=== PATIENT | male | born 1955 | race American Indian/Alaskan Native ===

== ENCOUNTER 2022-01-02 20:03 | Inpatient (IN) | payer MEDICAID, MEDICARE ==
[~2022-01-02 20:03] MED LIST: AMIODARONE 150 MG/3 ML INJ IV ONE; ATROPINE 0.1% (1 MG/10 ML) CARDIAC SYRINGE ONE; CALCIUM CHLORIDE 1,000 MG/10 ML SYRINGE IV ONE; DEXTROSE 50% IN WATER (25GM) 50 ML SYRINGE IV ONE; EPINEPHrine 1 MG/10 ML SYRINGE ONE; LIDOCAINE PF 100 MG/5 ML (CARDIAC SYRINGE) IV ONE; SODIUM BICARB 8.4% 50 MEQ/50 ML SYRINGE IV ONE
[2022-01-02] MEDS ORDERED: NALOXONE 2 MG/2 ML INJ IV ONE (20:07)
[2022-01-02] MEDS ORDERED: NORepinephrine/NS 8 MG-250 ML 8 MG/250 ML INFUS..BTL IV ONE (20:08)
[2022-01-02] MEDS: NORepinephrine/NS 8 MG-250 ML 8 MG/250 ML INFUS..BTL IV SCH (20:10)
[2022-01-02 20:18] LABS: ABG Base Excess -10.6 mmol/L (-2.0-3.0); ABG Methemoglobin 0.5 % (0.0-1.5); ABG Oxygen Saturation 93.2 % (95.0-99.0); ABG PO2 90.3 mm Hg (80.0-90.0)
[2022-01-02 20:21] LABS: ABG PH 7.049 pH Units (7.350-7.450)
[2022-01-02] MEDS ORDERED: SODIUM CHLORIDE 0.9% 1000 ML 1,000 ML IV ONE (20:30)
[2022-01-02 20:43] LABS: Hematocrit 40.8 % (35.5-45.6); Hemoglobin 13.3 gm/dl (11.8-15.2); Mean Corpuscular HGB Conc 33 % (32-34); Mean Corpuscular Volume 92 fl (84-94); Platelet Count 246 K/mm3 (140-440); Red Blood Count 4.42 M/mm3 (3.65-5.03); Red Cell Distribution Width 16.3 % (13.2-15.2)
--- NOTE | 2022-01-02 20:46 | XRay Report ---
CHEST 1 VIEW 01/02/2022 8:14 PM INDICATION / CLINICAL INFORMATION: Altered Mental Status. COMPARISON: None available. FINDINGS: SUPPORT DEVICES: Endotracheal tube has been placed with the tip 8.9 cm above the wood. Esophagogast roseline tube has been placed with the tip just below the diaphragm into the stomach with the sidehole abo ve the diaphragm. HEART / MEDIASTINUM: Heart is normal size. Thoracic aorta appears ectatic and tortuous. LUNGS / PLEURA: Mild bilateral perihilar opacities. Small right apical pneumothorax measuring 2.2 cm at the apex. ADDITIONAL FINDINGS: No significant additional findings. IMPRESSION: 1. Small right apical pneumothorax of about 20%. 2. Endotracheal tube is slightly high measuring 8.9 cm above the wood. 3. Esophagogastric tube should be advanced about 5 cm into the stomach. Signer Name: Radha Langford MD Signed: 01/02/2022 8:42 PM Workstation Name: [id number]
[2022-01-02 20:53] LABS: INR 1.08 (0.87-1.13)
[2022-01-02] MEDS ORDERED: SODIUM BICARBONATE 50 MEQ in SODIUM CHLORIDE 0.9% 1000 ML 1,000 ML IV SCH (21:00)
[2022-01-02 21:01] LABS: Alanine Aminotransferase 74 units/L (7-56); Albumin 3.7 g/dL (3.9-5); BUN/Creatinine Ratio 10; Blood Urea Nitrogen 14 mg/dL (9-20); Calcium 8.6 mg/dL (8.4-10.2); Hemolysis Index 62
--- NOTE | 2022-01-02 21:02 | Procedure Note ---
Date of procedure: 01/02/22 Pre-op diagnosis: Cardiac arrest Post-op diagnosis: same Procedure: Right femoral vein triple-lumen catheter placed under ultrasound guidance The patient was prepped and draped in the usual sterile fashion. A timeout was taken with the patient's nurse at bedside to verify the correct patient, the correct procedure, and the correct operative site. Local anesthesia was obtained with 1% lidocaine. The Seldinger technique was utilized to access the right femoral vein under ultrasound guidance. A seeker needle was utilized under ultrasound guidance and was inserted into the right femoral vein without difficulty. A guidewire was then advanced into the right femoral vein and the seeker needle subsequently removed. A scalpel was used to incise the skin. A dilator was then passed over the guidewire into the right femoral vein and subsequently removed. A preflush triple-lumen catheter was then advanced to the right femoral vein without difficulty. All 3 ports flush and drawl with ease. 3O nylon suture was utilized to suture the triple-lumen catheter in place. A Biopatch was placed at the insertion site. A sterile dressing was utilized to cover the triple-lumen catheter. Estimated blood loss minimal. Complications none. Specimens none. Anesthesia: local Surgeon: KALLIE WHITTEN Estimated blood loss: minimal Pathology: none Condition: critical Disposition: ICU
[2022-01-02 21:04] LABS: C-Reactive Protein 1.1 mg/dL (0.00-1.30)
[2022-01-02 21:09] LABS: Bacteria,Urine 2+ /HPF (Negative); Bilirubin,Urine NEG (Negative); Blood,Urine SM (Negative); Color,Urine Yellow (Yellow); Mucus,Urine FEW /HPF; Protein,Urine <15 mg/dL mg/dL (Negative); Urobilinogen,Urine < 2.0 mg/dL (<2.0)
[2022-01-02] MEDS ORDERED: PIPERACILLIN/TAZOBACTAM 3.375 3.375 GM/50 ML BAG IV ONE (21:10)
[2022-01-02 21:15] LABS: Chol/HDL Ratio 4.66 %; HDL Cholesterol 42 mg/dL (40-59); LDL Cholesterol,Direct 136 mg/dL (50-130)
[2022-01-02 21:15] LABS: Amphetamine Screen,Urine Negative; Benzodiazepines Screen,Urine Negative; Cannabinoid Screen,Urine Negative; Cocaine Screen,Urine Negative; Methadone Screen,Urine Negative; Opiate Screen,Urine Negative
[2022-01-02 21:52] LABS: ABG Base Excess -6.4 mmol/L (-2.0-3.0); ABG HCO3 19.4 mmol/L (20.0-26.0); ABG Methemoglobin 0.6 % (0.0-1.5); ABG Oxygen Saturation 95.8 % (95.0-99.0); ABG PCO2 39.7 mm Hg; ABG PH 7.306 pH Units (7.350-7.450); ABG PO2 68.8 mm Hg (80.0-90.0)
--- NOTE | 2022-01-02 22:26 | XRay Report ---
CHEST 1 VIEW 01/02/2022 10:06 PM INDICATION / CLINICAL INFORMATION: Dyspnea. COMPARISON: 8:14 PM FINDINGS: SUPPORT DEVICES: Interval placement of small right pleural tube. Endotracheal tube has been advanced with the tip 7.4 cm above the wood. Esophagogastric tube is again present at the gastroesophageal j unction. HEART / MEDIASTINUM: No significant abnormality. LUNGS / PLEURA: Bilateral pulmonary opacities are unchanged. Slight interval enlargement of right pne umothorax despite placement of pleural tube. ADDITIONAL FINDINGS: No significant additional findings. IMPRESSION: 1. Slight interval increase in size of right pneumothorax despite placement of pleural tube. 2. Endotracheal tube in expected position. 3. Esophagogastric tube at gastroesophageal junction. Tube should be advanced about 5 cm for optimal positioning. Signer Name: Radha Langford MD Signed: 01/02/2022 10:22 PM Workstation Name: [id number]
--- NOTE | 2022-01-02 22:45 | Emergency Department Report ---
ED General Adult HPI - General Stated complaint: CARDIAC ARREST Time Seen by Provider: 01/02/22 20:07 Source: family, EMS Mode of arrival: Stretcher Limitations: Altered Mental Status, Physical Limitation - History of Present Illness Initial comments: pt had witnessed cardiac arrest at home , recently taking gabapentin for pain , but no drugs no htn no diabetes Associated Symptoms: denies: denies other symptoms - Related Data Allergies Allergy/AdvReac Type Severity Reaction Status Date / Time Unable to Assess Allergy Unverified 01/02/22 20:17 ED Review of Systems ROS: Stated complaint: CARDIAC ARREST Other details as noted in HPI Comment: Unobtainable due to pts medical conditions ED Past Medical Hx - Past Medical History Previous Medical History?: Yes - Social History Smoking Status: Unknown if ever smoked Substance Use Type: Other ED Physical Exam - General Limitations: Altered Mental Status, Physical Limitation General appearance: obtunded, other (unresponsive ) - Head Head exam: Present: other (swelling left forhead) - Eye Eye exam: Present: other (mid non reactive ) - ENT ENT exam: Present: normal orophraynx - Respiratory Respiratory exam: Present: normal lung sounds bilaterally - Cardiovascular Cardiovascular Exam: Present: tachycardia, irregular rhythm - Expanded Neurological Exam Expanded Best Eye Response (Marycarmen): (1) no response Best Motor Response (Marycarmen): (1) no motor response Best Verbal Response (Racine): (1) no verbal response Marycarmen Total: 3 ED Course Vital Signs 01/02/22 01/02/22 01/02/22 20:08 20:10 20:12 Temperature Pulse Rate 130 H 130 H Respiratory 30 H Rate Blood Pressure 159/113 Blood Pressure 58/34 [Right] O2 Sat by Pulse 88 100 96 Oximetry 01/02/22 01/02/22 01/02/22 20:15 20:16 20:20 Temperature 97.6 F Pulse Rate 130 H 120 H Respiratory 22 20 Rate Blood Pressure 120/82 Blood Pressure 83/57 110/81 [Right] O2 Sat by Pulse 92 92 100 Oximetry 01/02/22 01/02/22 01/02/22 20:31 20:45 21:01 Temperature Pulse Rate 126 H 130 H 123 H Respiratory 28 H 9 L 9 L Rate Blood Pressure 159/113 193/128 168/125 Blood Pressure [Right] O2 Sat by Pulse 95 99 99 Oximetry 01/02/22 01/02/22 01/02/22 21:15 21:31 21:45 Temperature Pulse Rate 120 H 111 H 105 H Respiratory 19 10 L 14 Rate Blood Pressure 157/112 130/102 110/84 Blood Pressure [Right] O2 Sat by Pulse 99 100 99 Oximetry 01/02/22 01/02/22 01/02/22 22:01 22:15 22:31 Temperature Pulse Rate 98 H 94 H 103 H Respiratory 18 22 24 Rate Blood Pressure 118/92 114/83 107/85 Blood Pressure [Right] O2 Sat by Pulse 93 93 91 Oximetry 01/02/22 01/02/22 01/02/22 22:45 23:00 23:02 Temperature Pulse Rate 127 H 109 H 113 H Respiratory 15 25 H Rate Blood Pressure 128/98 96/72 94/71 Blood Pressure [Right] O2 Sat by Pulse 90 92 98 Oximetry 01/02/22 01/02/22 01/02/22 23:15 23:23 23:30 Temperature Pulse Rate 115 H 108 H 115 H Respiratory 26 H 26 H 30 H Rate Blood Pressure 93/73 106/85 104/71 Blood Pressure 103/78 [Right] O2 Sat by Pulse 98 98 98 Oximetry 01/03/22 01/03/22 00:02 00:11 Temperature Pulse Rate 121 H 122 H Respiratory 22 25 H Rate Blood Pressure 98/73 Blood Pressure [Right] O2 Sat by Pulse 86 Oximetry - Chest Tube Chest Tube Location: mid axillary line Chest Tube Procedure: betadine prep [place]azar[place] of Air [place]: Yes Number of Attempts: 1 Tube Sutured to Skin: Yes Post Procedure CXR?: Yes - Intubation Sedative: none Assist Device Used: fiberoptic device ET Tube Size: 7.5 Tube Secured Depth (cm): 25 Tube Secured Location: lips Tube Placement Confirmation: visualized tube passing t, equal breath sounds bilat, no breath sounds over epi, confirmation by capnometr Patient Tolerated Procedure: well, no complications Intubation Complications: none ED Medical Decision Making - Lab Data Result diagrams: 01/04/22 04:45 01/04/22 Unknown - EKG Data -: EKG Interpreted by Me - EKG Data Interpretation: nonspecific ST-T wave laron, LVH, other (afib ) - Radiology Data Radiology results: report reviewed, image reviewed - Medical Decision Making intubated on arrival as below , no spont pulse or breathing , epi and bicarb given X2 with ROSC , central line placed , started on levo to maintain MAP above 60 , x ray shwoed apical pneumo most likely secondary to CPR, chest tube inserted, pt had 3 episodes of vifb with DC , amiodarone bollus and drip given Critical Care Time: Yes Critical care time in (mins) excluding proc time.: 120 Critical care attestation.: If time is entered above; I have spent that time in minutes in the direct care of this critically ill patient, excluding procedure time. Critical Care Time: 120 ED Disposition Clinical Impression: Cardiac arrest, Hypotension, Unresponsive, Elevated troponin, UTI (urinary tract infection), Pneumothorax Disposition: ADMITTED INPATIENT Is pt being admited?: Yes Does the pt Need Aspirin: Yes Condition: Undetermined
[2022-01-02] MEDS ORDERED: ASPIRIN 325 MG TAB PO ONE (22:46)
[2022-01-02] MEDS ORDERED: MAGNESIUM HYDROXIDE (MOM) ORAL LIQD UDC PO PRN (22:53)
[2022-01-02] MEDS ORDERED: MORPHINE 2 MG/1 ML INJ IV PRN (22:53)
[2022-01-02] MEDS ORDERED: ACETAMINOPHEN 650 MG RECT SUPP PR PRN (22:53)
[2022-01-02] MEDS ORDERED: ONDANSETRON 4 MG/2 ML INJ IV PRN (22:53)
[2022-01-02] MEDS ORDERED: MORPHINE 4 MG/1 ML INJ IV PRN (22:53)
--- NOTE | 2022-01-02 23:03 | History and Physical Report ---
History of Present Illness Date of examination: 01/02/22 Date of admission: 01/02/2022 Chief complaint: Unresponsiveness History of present illness: 66-year-old -[place] male with no significant past medical history brought into the emergency room via EMS in cardiopulmonary arrest. Patient was said to be at home watching TV when he suddenly went into cardiac arrest. EMS was immediately called and patient was transported to the emergency room. CPR was conducted en route to the hospital. Upon arrival in the emergency room patient was subsequently intubated. He had a round of epinephrine and sodium bicarb with return of spontaneous circulation. During the course of his resuscitation patient was said to have gone into V. fib which required being given IV amiodarone and subsequently amiodarone drip. EKG had shown some possible ischemic changes however upon review by the construction analyst patient was deemed not to have a STEMI. Work-up in the emergency room, lab reveals leukocytosis of 14.7, lactic acid of 10.0, troponin of 0.200, urinalysis was significant for UTI, toxicology screen was unremarkable. Chest x-ray however reveals a small right apical pneumothorax of about 20% CT of the head was worrisome for bilateral cerebral edema and/or diffuse anoxic injury. Patient has had the chest tube placed in the emergency room. He has also been started on IV fluid , pressor and empiric IV antibiotics. Artillery Officer and construction analyst on-call has been notified by the ER physician. Most of this history was gotten from the ER staff as patient's family was not available. Past History Past Medical History: No medical history Past Surgical History: No surgical history Social history: no significant social history Family history: no significant family history Medications and Allergies Allergies Allergy/AdvReac Type Severity Reaction Status Date / Time Unable to Assess Allergy Unverified 01/02/22 20:17 Active Meds: Active Medications Acetaminophen (Acetaminophen 650 Mg Rect Supp) 650 mg WA Q6H PRN PRN Reason: Pain MILD(1-3)/Fever >100.5/CANTRELL Heparin Sodium (Porcine) (Heparin 5,000 Unit/1 Ml Vial) 5,000 unit SUB-Q Q8HR SALMA NORepinephrine/NS 8 MG-250 ML (Norepinephrine/Ns 8 Mg-250 Ml (Double Conc)) 8 mg in 250 mls @ 3.75 mls/hr IV TITRATE SALMA; Protocol Last Titration: 01/02/22 21:10 Dose: 0 mcg/min, 0 mls/hr Sodium Bicarbonate 50 meq/ (Sodium Chloride) 1,050 mls @ 100 mls/hr IV DIRECT SALMA Last Admin: 01/02/22 21:25 Dose: 100 mls/hr Amiodarone HCl 900 mg/ (Dextrose) 500 mls @ 33.333 mls/hr IV DIRECT SALMA; Protocol Sodium Chloride (Nacl 0.9% 1000 Ml) 1,000 mls @ 125 mls/hr IV DIRECT SALMA Magnesium Hydroxide (Magnesium Hydroxide (Mom) Oral Liqd Udc) 30 ml PO Q4H PRN PRN Reason: Constipation Morphine Sulfate (Morphine 2 Mg/1 Ml Inj) 2 mg IV Q4H PRN PRN Reason: Pain, Moderate (4-6) Morphine Sulfate (Morphine 4 Mg/1 Ml Inj) 4 mg IV Q4H PRN PRN Reason: Pain , Severe (7-10) Ondansetron HCl (Ondansetron 4 Mg/2 Ml Inj) 4 mg IV Q8H PRN PRN Reason: Nausea And Vomiting Sodium Chloride (Sodium Chloride 0.9% 10 Ml Flush Syringe) 10 ml IV BID SALMA Sodium Chloride (Sodium Chloride 0.9% 10 Ml Flush Syringe) 10 ml IV PRN PRN PRN Reason: LINE FLUSH Review of Systems ROS unobtainable: due to endotracheal tube Exam - Constitutional Vitals: Temp Pulse Resp BP Pulse Ox 97.6 F 127 H 15 128/98 90 01/02/22 20:20 01/02/22 22:45 01/02/22 22:45 01/02/22 22:45 01/02/22 22:45 General appearance: Present: other (Intubated and Sedated) - EENT Eyes: Present: PERRL, EOM intact. Absent: scleral icterus ENT: hearing intact, clear oral mucosa, dentition normal - Neck Neck: Present: supple, normal ROM - Respiratory Respiratory effort: normal Respiratory: bilateral: CTA - Cardiovascular Rhythm: regular Heart Sounds: Present: S1 & S2. Absent: gallop, systolic murmur, diastolic murmur, rub, click - Extremities Extremities: no ischemia, pulses intact, pulses symmetrical, No edema, normal temperature, normal color, Full ROM Peripheral Pulses: within normal limits - Abdominal General gastrointestinal: Present: soft, non-tender, non-distended, normal bowel sounds. Absent: mass - Musculoskeletal Musculoskeletal: other (Intubated and Sedated) - Psychiatric Psychiatric: cooperative - Neurologic Neurologic: other (Intubated and Sedated) HEART Score - HEART Score Troponin: Troponin T 0.200 ng/mL (0.00-0.029) H* 01/02/22 20:23 Results - Labs CBC & Chem 7: 01/02/22 20:23 01/02/22 20:23 Labs: Abnormal lab results 01/02/22 01/02/22 01/02/22 Range/Units 20:00 20:23 20:23 WBC 14.7 H (4.5-11.0) K/mm3 RDW 16.3 H (13.2-15.2) % PT 15.2 H (12.2-14.9) Sec. ABG pH 7.049 L* (7.350-7.450) pH Units ABG pO2 90.3 H (80.0-90.0) mm Hg ABG HCO3 (20.0-26.0) mmol/L ABG O2 Saturation 93.2 L (95.0-99.0) % ABG Base Excess -10.6 L (-2.0-3.0) mmol/L ABG Hemoglobin 13.1 L (14.0-18.0) gm/dl Oxyhemoglobin 88.4 L (95.0-99.0) % Carbon Dioxide (22-30) mmol/L Creatinine (0.8-1.3) mg/dL Glucose (75-100) mg/dL Lactic Acid (0.7-2.0) mmol/L AST (5-40) units/L ALT (7-56) units/L Ammonia (25-60) umol/L Total Creatine Kinase (55-170) units/L Troponin T (0.00-0.029) ng/mL Total Protein (6.3-8.2) g/dL Albumin (3.9-5) g/dL LDL Cholesterol Direct (50-130) mg/dL Urine WBC (Auto) (0.0-6.0) /HPF Salicylates (2.8-20.0) mg/dL Acetaminophen (10.0-30.0) ug/mL 01/02/22 01/02/22 01/02/22 Range/Units 20:23 20:23 20:23 WBC (4.5-11.0) K/mm3 RDW (13.2-15.2) % PT (12.2-14.9) Sec. ABG pH (7.350-7.450) pH Units ABG pO2 (80.0-90.0) mm Hg ABG HCO3 (20.0-26.0) mmol/L ABG O2 Saturation (95.0-99.0) % ABG Base Excess (-2.0-3.0) mmol/L ABG Hemoglobin (14.0-18.0) gm/dl Oxyhemoglobin (95.0-99.0) % Carbon Dioxide 21 L (22-30) mmol/L Creatinine 1.4 H (0.8-1.3) mg/dL Glucose 260 H (75-100) mg/dL Lactic Acid 10.00 H* (0.7-2.0) mmol/L AST 115 H (5-40) units/L ALT 74 H (7-56) units/L Ammonia (25-60) umol/L Total Creatine Kinase 668 H (55-170) units/L Troponin T 0.200 H* (0.00-0.029) ng/mL Total Protein 5.7 L (6.3-8.2) g/dL Albumin 3.7 L (3.9-5) g/dL LDL Cholesterol Direct 136 H (50-130) mg/dL Urine WBC (Auto) (0.0-6.0) /HPF Salicylates < 0.3 L (2.8-20.0) mg/dL Acetaminophen (10.0-30.0) ug/mL 01/02/22 01/02/22 01/02/22 Range/Units 20:23 20:23 20:52 WBC (4.5-11.0) K/mm3 RDW (13.2-15.2) % PT (12.2-14.9) Sec. ABG pH (7.350-7.450) pH Units ABG pO2 (80.0-90.0) mm Hg ABG HCO3 (20.0-26.0) mmol/L ABG O2 Saturation (95.0-99.0) % ABG Base Excess (-2.0-3.0) mmol/L ABG Hemoglobin (14.0-18.0) gm/dl Oxyhemoglobin (95.0-99.0) % Carbon Dioxide (22-30) mmol/L Creatinine (0.8-1.3) mg/dL Glucose (75-100) mg/dL Lactic Acid (0.7-2.0) mmol/L AST (5-40) units/L ALT (7-56) units/L Ammonia 79.0 H (25-60) umol/L Total Creatine Kinase (55-170) units/L Troponin T (0.00-0.029) ng/mL Total Protein (6.3-8.2) g/dL Albumin (3.9-5) g/dL LDL Cholesterol Direct (50-130) mg/dL Urine WBC (Auto) 40.0 H (0.0-6.0) /HPF Salicylates (2.8-20.0) mg/dL Acetaminophen 5.0 L (10.0-30.0) ug/mL 01/02/22 Range/Units 20:52 WBC (4.5-11.0) K/mm3 RDW (13.2-15.2) % PT (12.2-14.9) Sec. ABG pH 7.306 L (7.350-7.450) pH Units ABG pO2 68.8 L (80.0-90.0) mm Hg ABG HCO3 19.4 L (20.0-26.0) mmol/L ABG O2 Saturation (95.0-99.0) % ABG Base Excess -6.4 L (-2.0-3.0) mmol/L ABG Hemoglobin (14.0-18.0) gm/dl Oxyhemoglobin 92.8 L (95.0-99.0) % Carbon Dioxide (22-30) mmol/L Creatinine (0.8-1.3) mg/dL Glucose (75-100) mg/dL Lactic Acid (0.7-2.0) mmol/L AST (5-40) units/L ALT (7-56) units/L Ammonia (25-60) umol/L Total Creatine Kinase (55-170) units/L Troponin T (0.00-0.029) ng/mL Total Protein (6.3-8.2) g/dL Albumin (3.9-5) g/dL LDL Cholesterol Direct (50-130) mg/dL Urine WBC (Auto) (0.0-6.0) /HPF Salicylates (2.8-20.0) mg/dL Acetaminophen (10.0-30.0) ug/mL Assessment and Plan Assessment: 1. Cardiopulmonary arrest-unclear etiology 2. UTI 3. Cardiac arrhythmia 4. Right apical pneumothorax 5. Elevated troponin Plan: 1. Patient currently intubated and sedated and also placed on pressor. 2. Placed on IV fluid and empiric IV antibiotics. 3. Will monitor closely in the intensive care unit. 4. Patient has had chest tube placed for pneumothorax. 5. We will request chute tender and cardiology follow-up. 6. We will continue to monitor labs closely. DVT prophylaxis: Patient placed on subcutaneous heparin Code Status: Patient is full code. Prognosis: Poor
[2022-01-02] MEDS: AMIODARONE 900 MG in DEXTROSE 5% IN WATER 482 ML IV SCH (23:05)
[2022-01-02] MEDS: SODIUM CHLORIDE 0.9% 1000 ML 1,000 ML IV SCH (23:22)
[2022-01-02 23:40] LABS: Anisocytosis 1+; Band Neutrophils # (Manual) 0.1 K/mm3; Basophils % (Manual) 0 % (0.0-1.8); Eosinophils % (Manual) 0 % (0.0-4.3); Platelet Estimate Consistent w Auto; Total Cells Counted 100
--- NOTE | 2022-01-03 00:04 | Cat Scan Report ---
CT HEAD WITHOUT CONTRAST INDICATION / CLINICAL INFORMATION: Altered Mental Status. TECHNIQUE: CT head was performed without administration of intravenous contrast. All CT scans at this location are performed using CT dose reduction for ALARA by means of automated exposure control. COMPARISON: None available. FINDINGS: CEREBRAL HEMISPHERES: The cerebral hemispheres bilaterally demonstrate diffuse loss of mei-white mat ter distinction as well as sulcal effacement particularly noticeable within the bilateral centrum rosaura iovale. Some preservation of sulcal folding is noted anteriorly within the frontal lobes. Ventricle s ize appears within normal limits without evidence of midline shift. Basal cisterns are patent. HEMORRHAGE: None. CEREBELLUM / BRAINSTEM: Cerebellar architecture is indistinct. ORBITS: No significant abnormality. SOFT TISSUES: No significant abnormality. SKULL: No significant abnormality. PARANASAL SINUSES / MASTOID AIR CELLS: Normal as visualized. ADDITIONAL FINDINGS: None. IMPRESSION: 1. Findings as detailed above are worrisome for bilateral cerebral edema and/or diffuse anoxic injury . Correlation with known history is recommended. Signer Name: José Miguel Lu II, MD Signed: 01/03/2022 12:00 AM Workstation Name: [id number]
[2022-01-03 05:53] LABS: ABG Base Excess -13.3 mmol/L (-2.0-3.0); ABG HCO3 16.8 mmol/L (20.0-26.0); ABG Methemoglobin 0.8 % (0.0-1.5); ABG PCO2 55.8 mm Hg; ABG PO2 44.6 mm Hg (80.0-90.0)
[2022-01-03 05:56] LABS: ABG PH 7.096 pH Units (7.350-7.450)
[2022-01-03] MEDS ORDERED: PIPERACIL/TAZOBACTA 4.5/NS 100 4.5 GM/100 ML VIAL IV SCH (06:00)
[2022-01-03] MEDS ORDERED: HEPARIN 5,000 UNIT/1 ML VIAL SUB-Q SCH ×2 (06:00→14:00)
[2022-01-03] MEDS: SODIUM CHLORIDE 0.9% 1000 ML 1,000 ML IV SCH (06:00)
[2022-01-03 06:13] LABS: Hematocrit 45.5 % (35.5-45.6); Hemoglobin 14.3 gm/dl (11.8-15.2); Mean Corpuscular HGB Conc 32 % (32-34); Mean Corpuscular Volume 94 fl (84-94); Red Blood Count 4.85 M/mm3 (3.65-5.03); Red Cell Distribution Width 16.6 % (13.2-15.2)
[2022-01-03 06:24] LABS: Calcium 8.4 mg/dL (8.4-10.2)
[2022-01-03] MEDS ORDERED: POTASSIUM CHLORIDE 10 MEQ 10 MEQ/100 ML BAG IV ONE (06:30)
[2022-01-03] MEDS ORDERED: EPINEPHrine 1 MG/10 ML SYRINGE ONE (06:30)
[2022-01-03] MEDS ORDERED: SODIUM BICARB 8.4% 50 MEQ/50 ML SYRINGE IV ONE (06:30)
[2022-01-03] MEDS ORDERED: ATROPINE 0.1% (1 MG/10 ML) CARDIAC SYRINGE ONE (06:30)
[2022-01-03] MEDS: VASOPRESSIN 20 UNIT in SODIUM CHLORIDE 0.9% 100 ML IV SCH ×2 (06:45→21:50)
--- NOTE | 2022-01-03 06:54 | Event Note ---
Date: 01/03/22 MAURO RANDHAWA called on 66-year-old -[place] male who was admitted earlier in cardiopulmonary arrest. Resuscitative measures were commenced according to ACLS protocol. Patient received a round of epinephrine and he had spontaneous return of circulation. Review of his current labs shows hypokalemia, metabolic acidosis. Patient to be given K rider and also an amp of sodium bicarb. Patient will be continued on pressors and also continue to monitor labs and vital signs closely. Prognosis still remains poor.
--- NOTE | 2022-01-03 07:43 | Consultation ---
History of Present Illness Consult date: 01/03/22 Requesting physician: SHAVON SHEN Reason for consult: other (Cardiopulmaonry arrest, resp failure on mVS; Shock) History of present illness: PER ED DOCUMENTATION 66-year-old -[place] male with no significant past medical history brought into the emergency room via EMS in cardiopulmonary arrest. Patient was said to be at home watching TV when he suddenly went into cardiac arrest. EMS was immediately called and patient was transported to the emergency room. CPR was conducted en route to the hospital. Upon arrival in the emergency room patient was subsequently intubated. He had a round of epinephrine and sodium bicarb with return of spontaneous circulation. During the course of his resuscitation patient was said to have gone into V. fib which required being given IV amiodarone and subsequently amiodarone drip. EKG had shown some possible ischemic changes however upon review by the car diologist patient was deemed not to have a STEMI. Work-up in the emergency room, lab reveals leukocytosis of 14.7, lactic acid of 10.0, troponin of 0.200, urinalysis was significant for UTI, toxicology screen was unremarkable. Chest x-ray however reveals a small right apical pneumothorax of about 20% CT of the head was worrisome for bilateral cerebral edema and/or diffuse anoxic injury. Patietn seen adn examined. Vitals, albs, medicaitons,chsrt and iamging reviewed. Patient had another arrest at 650am with ROSC. Chest imaging post right pleural drain placement shows a persistent right pneum othorax. patient continues to require vasopressor support- on Norepinephrine, Vasopressin, Nsaline and 1 amp bicarbonate in Nsaline infusion Gil catheter, right femoral CVL He is unresponsive ABG shows mixed respiratory and metabolic acidosis with hypoxemia Past History Past Medical History: No medical history Past Surgical History: No surgical history Social history: no significant social history Family history: no significant family history Medications and Allergies Allergies Allergy/AdvReac Type Severity Reaction Status Date / Time Unable to Assess Allergy Unverified 01/02/22 20:17 Active Meds: Active Medications Acetaminophen (Acetaminophen 650 Mg Rect Supp) 650 mg [place] Q6H PRN PRN Reason: Pain MILD(1-3)/Fever >100.5/CANTRELL Heparin Sodium (Porcine) (Heparin 5,000 Unit/1 Ml Vial) 5,000 unit SUB-Q Q8HR SALMA Last Admin: 01/03/22 06:00 Dose: 5,000 unit NORepinephrine/NS 8 MG-250 ML (Norepinephrine/Ns 8 Mg-250 Ml (Double Conc)) 8 mg in 250 mls @ 3.75 mls/hr IV TITRATE SALMA; Protocol Last Titration: 01/03/22 06:20 Dose: 30 mcg/min, 56.25 mls/hr Sodium Bicarbonate 50 meq/ (Sodium Chloride) 1,050 mls @ 100 mls/hr IV DIRECT SALMA Last Admin: 01/02/22 21:25 Dose: 100 mls/hr Amiodarone HCl 900 mg/ (Dextrose) 500 mls @ 33.333 mls/hr IV DIRECT SALMA; Protocol Last Titration: 01/03/22 05:10 Dose: 0.5 mg/min, 16.667 mls/hr Sodium Chloride (Nacl 0.9% 1000 Ml) 1,000 mls @ 125 mls/hr IV DIRECT SALMA Last Admin: 01/03/22 06:00 Dose: 125 mls/hr Piperacillin Sod/Tazobactam Sod (Zosyn/Ns 4.5gm/100ml) 4.5 gm in 100 mls @ 200 mls/hr IV Q8HR SALMA; Protocol Last Admin: 01/03/22 06:01 Dose: 200 mls/hr Vasopressin 20 unit/ Sodium (Chloride) 101 mls @ 9.09 mls/hr IV TITR SALMA; Protocol Last Admin: 01/03/22 06:45 Dose: 0.03 units/min, 9.09 mls/hr Magnesium Hydroxide (Magnesium Hydroxide (Mom) Oral Liqd Udc) 30 ml PO Q4H PRN PRN Reason: Constipation Morphine Sulfate (Morphine 2 Mg/1 Ml Inj) 2 mg IV Q4H PRN PRN Reason: Pain, Moderate (4-6) Morphine Sulfate (Morphine 4 Mg/1 Ml Inj) 4 mg IV Q4H PRN PRN Reason: Pain , Severe (7-10) Ondansetron HCl (Ondansetron 4 Mg/2 Ml Inj) 4 mg IV Q8H PRN PRN Reason: Nausea And Vomiting Sodium Chloride (Sodium Chloride 0.9% 10 Ml Flush Syringe) 10 ml IV BID SALMA Sodium Chloride (Sodium Chloride 0.9% 10 Ml Flush Syringe) 10 ml IV PRN PRN PRN Reason: LINE FLUSH Review of Systems ROS unobtainable: due to endotracheal tube, due to mental status Physical Examination Vital signs: Vital Signs Pulse Ox 88 01/02/22 20:08 General appearance: comatose, other (orally intuabted to [facility]) Eyes: non-icteric ENT: oropharynx moist Neck: supple, no lymphadenopathy Effort: mildly labored Cardiovascular: regular rate and rhythm (tachycardia), other (S1,S2) Gastrointestinal: normoactive bowel sounds, soft, other (distended) Integumentary: normal Extremities: cool pupils equal and round, unable to assess, other other (Unable to asses psych) Results - Laboratory Findings CBC and BMP: 01/03/22 08:03 01/03/22 04:00 ABG ABG pH 7.096 pH Units (7.350-7.450) L* 01/03/22 05:30 ABG pCO2 55.8 mm Hg 01/03/22 05:30 ABG pO2 44.6 mm Hg (80.0-90.0) L 01/03/22 05:30 ABG O2 Saturation 68.0 % (95.0-99.0) L 01/03/22 05:30 PT/INR, D-dimer PT 15.2 Sec. (12.2-14.9) H 01/02/22 20:23 INR 1.08 (0.87-1.13) 01/02/22 20:23 Abnormal lab findings: Abnormal Labs 01/02/22 01/02/22 01/02/22 20:00 20:23 20:23 WBC 14.7 H RDW 16.3 H Seg Neuts % (Manual) 36.0 L Lymphocytes % (Manual) 61.0 H Lymphocytes # (Manual) 9.0 H PT 15.2 H ABG pH 7.049 L* ABG pO2 90.3 H ABG HCO3 ABG O2 Saturation 93.2 L ABG Base Excess -10.6 L ABG Hemoglobin 13.1 L Oxyhemoglobin 88.4 L Sodium Potassium Carbon Dioxide Creatinine Glucose Lactic Acid AST ALT Ammonia Total Creatine Kinase Troponin T Total Protein Albumin LDL Cholesterol Direct Urine WBC (Auto) Salicylates Acetaminophen 01/02/22 01/02/22 01/02/22 20:23 20:23 20:23 WBC RDW Seg Neuts % (Manual) Lymphocytes % (Manual) Lymphocytes # (Manual) PT ABG pH ABG pO2 ABG HCO3 ABG O2 Saturation ABG Base Excess ABG Hemoglobin Oxyhemoglobin Sodium Potassium Carbon Dioxide 21 L Creatinine 1.4 H Glucose 260 H Lactic Acid 10.00 H* AST 115 H ALT 74 H Ammonia Total Creatine Kinase 668 H Troponin T 0.200 H* Total Protein 5.7 L Albumin 3.7 L LDL Cholesterol Direct 136 H Urine WBC (Auto) Salicylates < 0.3 L Acetaminophen 01/02/22 01/02/22 01/02/22 20:23 20:23 20:52 WBC RDW Seg Neuts % (Manual) Lymphocytes % (Manual) Lymphocytes # (Manual) PT ABG pH ABG pO2 ABG HCO3 ABG O2 Saturation ABG Base Excess ABG Hemoglobin Oxyhemoglobin Sodium Potassium Carbon Dioxide Creatinine Glucose Lactic Acid AST ALT Ammonia 79.0 H Total Creatine Kinase Troponin T Total Protein Albumin LDL Cholesterol Direct Urine WBC (Auto) 40.0 H Salicylates Acetaminophen 5.0 L 01/02/22 01/03/22 01/03/22 20:52 00:50 04:00 WBC 2.1 L RDW 16.6 H Seg Neuts % (Manual) Lymphocytes % (Manual) Lymphocytes # (Manual) PT ABG pH 7.306 L ABG pO2 68.8 L ABG HCO3 19.4 L ABG O2 Saturation ABG Base Excess -6.4 L ABG Hemoglobin Oxyhemoglobin 92.8 L Sodium Potassium Carbon Dioxide Creatinine Glucose Lactic Acid 6.80 H* AST ALT Ammonia Total Creatine Kinase Troponin T Total Protein Albumin LDL Cholesterol Direct Urine WBC (Auto) Salicylates Acetaminophen 01/03/22 01/03/22 01/03/22 04:00 05:30 05:45 WBC RDW Seg Neuts % (Manual) Lymphocytes % (Manual) Lymphocytes # (Manual) PT ABG pH 7.096 L* ABG pO2 44.6 L ABG HCO3 16.8 L ABG O2 Saturation 68.0 L ABG Base Excess -13.3 L ABG Hemoglobin Oxyhemoglobin 66.6 L Sodium 146 H Potassium 3.0 L Carbon Dioxide 17 L Creatinine 2.5 H D Glucose 149 H Lactic Acid 11.10 H* AST ALT Ammonia Total Creatine Kinase Troponin T Total Protein Albumin LDL Cholesterol Direct Urine WBC (Auto) Salicylates Acetaminophen - Diagnostic Findings Chest x-ray: image reviewed (Right pneumothorax) Assessment and Plan S/p cardiopulmonary arrest x2 with ROSC- Vfib and the bradycardia -requiring multiple pressors Acute hypxemic-hypercarbic respiratory failure on MVS Right Pneumothorax Acute renal failure- vasomotor nephropathy/ATN Elevated live enzymes- possibly shock liver Elevated Ammonia Possible anoxic brain injury NSTEMI Hypernatremia -Start Epinephrine, wean off Norepinephrine -Start heparin infusion- history of long travel about 3 weeks ago( drove from [facility] to [place]) -Get lower extremity dopplers, patient is too unstable to transport fro V/Q scan. CTA is not recommended in the setting of SKYLER -Change IVF- stop NSaline infusion -3 amps of bicarbonate in D5 water at 150ml/hour -Get transthoracic echocardiogram -TTM not available- maintain temp of 33-34 -Will not sedate for now, need to monitor neurologic function -Right chest tube placed, with improvement in hypoxemia -Adjust minute ventilation for better gas exchange -Lung protective strategies, PEEP while monitoring airway pressures -CXR, ABG as clinically indicated -Wean vasopressors for MAP>65, Volume resuscitate -Monitoring renal function, hemodynamics and electrolyte profile -Avoid nephrotoxins and renally dose all medications -Replete electrolytes as clinically indicated -Empiric antibiotics- follow cultures and de-escalate based on culture data and clinical response -Accuchecks with glycemic control. target blood glucose 140-180 mg/dL. Avoid hypoglycemia -Place OGT to LIS -VTE prophylaxis- therapeutic heparin -Stress ulcer prophylaxis- start famotidine -Mobility, frequent turning, off loading per facility protocol to prevent pressure ulcers -Cardioprotective measures CONDITION:CRITICAL PROGNOSIS: GUARDED CODE STATUS; FULL CODE Will need to discuss with family re goals of care- his son and daughter are on the way to the hospital The high probability of a clinically significant, sudden or life threatening deterioration of the respiratory, cardiovascular, neurology system required my full and direct attention, intervention and personal management. The aggregate critical care time was [85] minutes. This time is in addition to time spent performing reported procedures but includes the following: [x] Data Review and interpretation [x] Patient assessment and monitoring of vital signs [x] Documentation [x] Medication orders and management
--- NOTE | 2022-01-03 07:43 | Procedure Note ---
Date of procedure: 01/03/22 Pre-op diagnosis: 2 pressor shock, cardiac arrest with ROSC, acut ehypoxemic resp failure Post-op diagnosis: same Procedure: Left femoral johann placement Patient cleaned and draped in sterile fashion Under ultrasound guidance the left femoral artery was cannulated, guidewire placed. Stab wound, and a femoral catheter placed. Good pulsating blood flow, good wave form noted. Sutured in place, sterile dressing paced. Patient tolerated the procedure well. Anesthesia: local Surgeon: RAQUEL DEJESUS Estimated blood loss: minimal Pathology: none Condition: critical Disposition: ICU
[2022-01-03] MEDS ORDERED: HEPARIN 10,000 UNITS/10 ML VIAL IV PRN (07:45)
[2022-01-03] MEDS ORDERED: HEPARIN/ 0.45% NACL DRIP 25,000 UNIT/500 ML BAG IV SCH (08:00)
[2022-01-03] MEDS: EPINEPHrine 1 MG/1 ML 8 MG in SODIUM CHLORIDE 0.9% 250ML 242 ML IV SCH (08:03)
[2022-01-03] MEDS: NORepinephrine/NS 8 MG-250 ML 8 MG/250 ML INFUS..BTL IV SCH (09:19)
[2022-01-03 09:28] LABS: ABG Base Excess -11.7 mmol/L (-2.0-3.0); ABG HCO3 17.5 mmol/L (20.0-26.0); ABG PCO2 52.3 mm Hg; ABG PO2 47.8 mm Hg (80.0-90.0)
[2022-01-03 09:31] LABS: ABG Methemoglobin 0.6 % (0.0-1.5); ABG Oxygen Saturation 79.4 % (95.0-99.0)
[2022-01-03 09:35] LABS: ABG PH 7.154 pH Units (7.350-7.450)
[2022-01-03] MEDS: SODIUM BICARBONATE 150 MEQ in DEXTROSE 5% IN WATER 1,000 ML IV SCH ×2 (09:41→20:05)
--- NOTE | 2022-01-03 09:57 | XRay Report ---
CHEST 1 VIEW 01/03/2022 8:46 AM INDICATION / CLINICAL INFORMATION: resp failure, right pneumothorax. COMPARISON: Yesterday at 2214 hours FINDINGS: SUPPORT DEVICES: Lines and tubes remain in similar position. The nasogastric tube terminates just bey ond the GE junction. Consider advancement by 5-10 cm. HEART / MEDIASTINUM: No significant abnormality. LUNGS / PLEURA: Moderate to large right pneumothorax has increased from 2.0 cm to 3.4 cm in thickness from the right lateral wall. There is increased atelectatic changes in the right lung. There is mild mediastinal shift to the left suggesting a tension component. The left lung remains clear. ADDITIONAL FINDINGS: No significant additional findings. IMPRESSION: 1. Mild interval increase in the right pneumothorax as described. 2. Consider advancement of the nasogastric tube. Signer Name: Vicente Adkins Jr, MD Signed: 01/03/2022 9:53 AM Workstation Name: [id number]
[2022-01-03 10:14] LABS: Basophils % (Manual) 0 % (0.0-1.8); Eosinophils % (Manual) 0 % (0.0-4.3); Myelocytes # (Manual) 0.2 K/mm3; Total Cells Counted 100
[2022-01-03 10:15] LABS: Anisocytosis 1+; Platelet Clumps 2+
[2022-01-03 10:16] LABS: Large Platelets 2+; Platelet Count 255 K/mm3 (140-440); Platelet Estimate Consistent w Auto
--- NOTE | 2022-01-03 10:40 | XRay Report ---
CHEST 1 VIEW 01/03/2022 9:34 AM INDICATION / CLINICAL INFORMATION: s/p chest tube placement; pnemothorax. COMPARISON: 01/03/2022 FINDINGS: SUPPORT DEVICES: Multiple right chest tubes with gas in the right chest wall HEART / MEDIASTINUM: No significant abnormality. LUNGS / PLEURA: Diffuse opacity throughout the right lung. Right chest tube is noted with expansion o f the lungs. No large pneumothorax is seen ADDITIONAL FINDINGS: No significant additional findings. IMPRESSION: 1. Multiple right chest tubes with diffuse opacity in the right lung. No large pneumothorax. Signer Name: Zackary Mendoza MD Signed: 01/03/2022 10:36 AM Workstation Name: [id number]
--- NOTE | 2022-01-03 10:42 | Procedure Note ---
Date of procedure: 01/03/22 Pre-op diagnosis: Acute hypoxemic resp failure, right tension pneumothorax Post-op diagnosis: same Procedure: Right chest tube placement Emergent- consent not obtained. The right chest wall was prepared and draped in sterile fashion The 4th RICS mid axillary line accessed with finder needle, guidewire placed. Dilated and a 20F pleural drain placed. Guide wire removed. Patietn tolerated the procedure well with improvement of SpO2 to 99% and improvement in blood pressure. A purse string suture was placed. Vaseline gauze and dressing placed. Stat CXR ordered- reviewed at the bedside- Chest tube in place, with re-expanded right lung. Chest tube placed to plerual vac , -20cm suction Anesthesia: local Surgeon: RAQUEL DEJESUS Estimated blood loss: none Pathology: none Condition: critical Disposition: ICU
[2022-01-03 10:44] LABS: Hemoglobin 13.7 gm/dl (11.8-15.2)
--- NOTE | 2022-01-03 10:54 | Consultation ---
History of Present Illness Consult date: 01/03/22 Requesting physician: SHAVON SHEN Consult reason: cardiac arrest History of present illness: Patient is 66-year-old male with unknown past medical history who is brought to the ED yesterday via EMS due to cardiopulmonary arrest. History is taken from chart due to patient being intubated at time of interview. Per documentation patient was at home watching TV when he went into cardiac arrest. EMS was no tified and patient was transported to the hospital. In the ED patient was intubated found to be in V. fib. ACLS protocol was initiated with ROSC. Patient was found to have elevated lactic acid, elevated troponin, and pneumothorax. Head CT concerning for cerebral edema and diffuse anoxic brain in jury. Patient is previously known to our practice. Cardiology is consulted for cardiopulmonary arrest. Past History Past Medical History: No medical history Past Surgical History: No surgical history Social history: no significant social history Family history: no significant family history Medications and Allergies Allergies Allergy/AdvReac Type Severity Reaction Status Date / Time Unable to Assess Allergy Unverified 01/02/22 20:17 Active Meds: Active Medications Acetaminophen (Acetaminophen 650 Mg Rect Supp) 650 mg [place] Q6H PRN PRN Reason: Pain MILD(1-3)/Fever >100.5/CANTRELL Famotidine (Famotidine 20 Mg/2 Ml Inj) 10 mg IV BID SALMA Heparin Sodium (Porcine) (Heparin 5,000 Unit/1 Ml Vial) 5,000 unit SUB-Q Q8HR SALMA NORepinephrine/NS 8 MG-250 ML (Norepinephrine/Ns 8 Mg-250 Ml (Double Conc)) 8 mg in 250 mls @ 3.75 mls/hr IV TITRATE SALMA; Protocol Last Titration: 01/03/22 10:45 Dose: 10 mcg/min, 18.75 mls/hr Amiodarone HCl 900 mg/ (Dextrose) 500 mls @ 33.333 mls/hr IV DIRECT SALMA; Protocol Last Titration: 01/03/22 05:10 Dose: 0.5 mg/min, 16.667 mls/hr Vasopressin 20 unit/ Sodium (Chloride) 101 mls @ 9.09 mls/hr IV TITR SALMA; Protocol Last Admin: 01/03/22 06:45 Dose: 0.03 units/min, 9.09 mls/hr Epinephrine 8 mg/ Sodium (Chloride) 250 mls @ 3.75 mls/hr IV TITR SALMA; Protocol Last Admin: 01/03/22 08:03 Dose: 2 mcg/min, 3.75 mls/hr Sodium Bicarbonate 150 meq/ (Dextrose) 1,000 mls @ 150 mls/hr IV DIRECT SALMA Last Admin: 01/03/22 09:41 Dose: 150 mls/hr Piperacillin Sod/Tazobactam Sod (Zosyn/Ns 3.375gm/50ml) 3.375 gm in 50 mls @ 100 mls/hr IV Q8HR SALMA; Protocol Magnesium Hydroxide (Magnesium Hydroxide (Mom) Oral Liqd Udc) 30 ml PO Q4H PRN PRN Reason: Constipation Morphine Sulfate (Morphine 2 Mg/1 Ml Inj) 2 mg IV Q4H PRN PRN Reason: Pain, Moderate (4-6) Morphine Sulfate (Morphine 4 Mg/1 Ml Inj) 4 mg IV Q4H PRN PRN Reason: Pain , Severe (7-10) Ondansetron HCl (Ondansetron 4 Mg/2 Ml Inj) 4 mg IV Q8H PRN PRN Reason: Nausea And Vomiting Sodium Chloride (Sodium Chloride 0.9% 10 Ml Flush Syringe) 10 ml IV BID SALMA Last Admin: 01/03/22 09:28 Dose: 10 ml Sodium Chloride (Sodium Chloride 0.9% 10 Ml Flush Syringe) 10 ml IV PRN PRN PRN Reason: LINE FLUSH Review of Systems ROS unobtainable: due to endotracheal tube, due to mental status Physical Examination Vital Signs Pulse Ox 88 01/02/22 20:08 General appearance: other (Intubated) HEENT: Positive: Normocephaly Cardiac: Positive: Reg Rate and Rhythm Lungs: Positive: Decreased Breath Sounds, Ventilated Respirations Neuro: Positive: Other (Unable to assess) Abdomen: Positive: Soft Skin: Negative: Rash, Suspicious Lesions, Ulceration Extremities: Present: warm. Absent: edema Results 01/03/22 08:03 01/03/22 04:00 Cardiac Enzymes 01/02/22 Range/Units 20:23 AST 115 H (5-40) units/L Coagulation 01/02/22 Range/Units 20:23 PT 15.2 H (12.2-14.9) Sec. INR 1.08 (0.87-1.13) Lipids 01/02/22 Range/Units 20:23 Triglycerides 106 (2-149) mg/dL Cholesterol 196 (50-199) mg/dL HDL Cholesterol 42 (40-59) mg/dL Cholesterol/HDL Ratio 4.66 % CBC 01/02/22 01/03/22 01/03/22 Range/Units 20:23 04:00 08:03 WBC 14.7 H 2.1 L (4.5-11.0) K/mm3 RBC 4.42 4.85 (3.65-5.03) M/mm3 Hgb 13.3 14.3 13.7 (11.8-15.2) gm/dl Hct 40.8 45.5 42.0 (35.5-45.6) % Plt Count 246 255 202 (140-440) K/mm3 Lymph # (Auto) Supervisor [employer] Comprehensive Metabolic Panel 01/02/22 01/03/22 Range/Units 20:23 04:00 Sodium 144 146 H (137-145) mmol/L Potassium 3.7 3.0 L (3.6-5.0) mmol/L Chloride 101.7 106.2 (98-107) mmol/L Carbon Dioxide 21 L 17 L (22-30) mmol/L BUN 14 19 (9-20) mg/dL Creatinine 1.4 H 2.5 H D (0.8-1.3) mg/dL Glucose 260 H 149 H (75-100) mg/dL Calcium 8.6 8.4 (8.4-10.2) mg/dL AST 115 H (5-40) units/L ALT 74 H (7-56) units/L Alkaline Phosphatase 123 (35-129) units/L Total Protein 5.7 L (6.3-8.2) g/dL Albumin 3.7 L (3.9-5) g/dL - Imaging and Cardiology Echo: pending EKG interpretations - Telemetry EKG Rhythm: Sinus Tachycardia - EKG Sinus rhythms and dysrhythmias: sinus tachycardia AV and intraventricular conduction: right bundle branch block Assessment and Plan Patient is 66-year-old male with unknown past medical history who is brought to the ED yesterday via EMS due to cardiopulmonary arrest with unknown downtime. S/p cardiopulmonary arrest-requiring multiple pressors Acute respiratory failure Pneumothorax-pulmonology following Anoxic brain injury?-Neurology following NSTEMI UTI Plan: EKG shows sinus tach with RBBB no acute ischemic changes. Troponins noted to be elevated in setting of cardiopulmonary arrest Patient currently requiring multiple pressors. Wean pressors as tolerated Patient currently absent reflexes Echo pending Overall poor prognosis Patient in conjunction with Dr. Zelaya who agrees with this plan of care 30 minutes of critical care time spent in care and coordination of patient - Patient Problems (1) Cardiac arrest Current Visit: Yes Status: Acute (2) Hypotension Current Visit: Yes Status: Acute (3) Unresponsive Current Visit: Yes Status: Acute (4) Elevated troponin Current Visit: Yes Status: Acute (5) UTI (urinary tract infection) Current Visit: Yes Status: Acute (6) Pneumothorax Current Visit: Yes Status: Acute
--- NOTE | 2022-01-03 10:56 | Event Note ---
Date: 01/03/22 Son( Alfredo) and Daughter visiting at the bedside. I updated them and answered all heir questions. The patient is to be DNAR in the event of cardiac arrest- no chest compressions, no defibrillation. He is to remain full aggressive care for now. Further goals of care discussions will be had when the whole family get here.
[2022-01-03] MEDS: FAMOTIDINE 20 MG/2 ML INJ IV SCH ×2 (11:08→21:29)
[2022-01-03] MEDS: HEPARIN/ 0.45% NACL DRIP 25,000 UNIT/500 ML BAG IV SCH (11:09)
[2022-01-03 12:04] LABS: ABG Base Excess -9.4 mmol/L (-2.0-3.0); ABG HCO3 18.6 mmol/L (20.0-26.0); ABG Methemoglobin 0.6 % (0.0-1.5); ABG Oxygen Saturation 98.9 % (95.0-99.0); ABG PO2 173.7 mm Hg (80.0-90.0)
[2022-01-03 12:15] LABS: ABG PH 7.198 pH Units (7.350-7.450)
[2022-01-03] MEDS ORDERED: PIPERACILLIN/TAZOBACTAM 3.375 3.375 GM/50 ML BAG IV SCH (14:00)
[2022-01-03 14:13] LABS: Partial Thromboplastin Time 39.6 Sec. (24.2-36.6)
[2022-01-03 14:21] LABS: INR 1.76 (0.87-1.13)
[2022-01-03] MEDS ORDERED: VANCOMYCIN/NS 1 GM/250 ML 1 GM/250 ML BAG IV SCH (15:00)
--- NOTE | 2022-01-03 15:08 | Consultation ---
History of Present Illness - Reason for Consult Consult date: 01/03/22 - History of Present Illness 66-year-old man no known past medical history brought in cardiopulmonary arrest. He was at home watching television when the arrest occurred. He is currently intubated and sedated the history is obtained from the chart. Afebrile with low temperatures White count initially 14.7, now 2.1 Imaging personally reviewed CXR: diffuse opacities throughout Past History Past Medical History: No medical history Past Surgical History: No surgical history Social history: no significant social history Family history: no significant family history Medications and Allergies Allergies Allergy/AdvReac Type Severity Reaction Status Date / Time Unable to Assess Allergy Unverified 01/02/22 20:17 Active Meds: Active Medications Acetaminophen (Acetaminophen 650 Mg Rect Supp) 650 mg NM Q6H PRN PRN Reason: Pain MILD(1-3)/Fever >100.5/CANTRELL Famotidine (Famotidine 20 Mg/2 Ml Inj) 10 mg IV BID SALMA Last Admin: 01/03/22 11:08 Dose: 10 mg NORepinephrine/NS 8 MG-250 ML (Norepinephrine/Ns 8 Mg-250 Ml (Double Conc)) 8 mg in 250 mls @ 3.75 mls/hr IV TITRATE SALMA; Protocol Last Titration: 01/03/22 13:11 Dose: 0 mcg/min, 0 mls/hr Amiodarone HCl 900 mg/ (Dextrose) 500 mls @ 33.333 mls/hr IV DIRECT SALMA; P rotocol Last Titration: 01/03/22 05:10 Dose: 0.5 mg/min, 16.667 mls/hr Vasopressin 20 unit/ Sodium (Chloride) 101 mls @ 9.09 mls/hr IV TITR SALMA; Protocol Last Titration: 01/03/22 14:29 Dose: 0 units/min, 0 mls/hr Epinephrine 8 mg/ Sodium (Chloride) 250 mls @ 3.75 mls/hr IV TITR ASLMA; Protocol Last Admin: 01/03/22 08:03 Dose: 2 mcg/min, 3.75 mls/hr Sodium Bicarbonate 150 meq/ (Dextrose) 1,000 mls @ 150 mls/hr IV DIRECT SALMA Last Admin: 01/03/22 09:41 Dose: 150 mls/hr Piperacillin Sod/Tazobactam Sod (Zosyn/Ns 3.375gm/50ml) 3.375 gm in 50 mls @ 100 mls/hr IV Q8HR [facility]; Protocol Heparin Sodium/Sodium Chloride (Heparin/ 0.45% Nacl-25,000 Unit/500 Ml) 25,000 unit in 500 mls @ 20 mls/hr IV TITRATE SALMA; Protocol Last Admin: 01/03/22 11:09 Dose: 1,000 units/hr, 20 mls/hr Vancomycin HCl (Vancomycin/Ns 1 Gm/250 Ml) 1 gm in 250 mls @ 167.007 mls/hr IV ONCE@1500 SALMA Stop: 01/03/22 18:00 Magnesium Hydroxide (Magnesium Hydroxide (Mom) Oral Liqd Udc) 30 ml PO Q4H PRN PRN Reason: Constipation Morphine Sulfate (Morphine 2 Mg/1 Ml Inj) 2 mg IV Q4H PRN PRN Reason: Pain, Moderate (4-6) Morphine Sulfate (Morphine 4 Mg/1 Ml Inj) 4 mg IV Q4H PRN PRN Reason: Pain , Severe (7-10) Ondansetron HCl (Ondansetron 4 Mg/2 Ml Inj) 4 mg IV Q8H PRN PRN Reason: Nausea And Vomiting Sodium Chloride (Sodium Chloride 0.9% 10 Ml Flush Syringe) 10 ml IV BID [facility] Last Admin: 01/03/22 09:28 Dose: 10 ml Sodium Chloride (Sodium Chloride 0.9% 10 Ml Flush Syringe) 10 ml IV PRN PRN PRN Reason: LINE FLUSH Review of Systems ROS unobtainable: due to endotracheal tube, due to mental status Physical Examination - Physical Exam Narrative exam: Physical Exam: Constitutional: Intubates, sedated Head, Ears, Nose: Normocephalic, atraumatic. External ears, nose normal Eyes: Conjunctivae/corneas clear. No icterus. No ptosis. Neck: Supple, no meningeal signs Oral: ETT Cardiovascular: S1, S2 normal. Respiratory: Good air entry, clear to auscultation bilaterally GI: Soft, non-tender; bowel sounds normal. No peritoneal signs. Musculoskeletal: No pedal edema, no cyanosis. Skin: No rash or abscess Hem/Lymphatic: No palpable cervical or supraclavicular nodes. No lymphangitis Psych: Sedated Neurological:Sedated - Constitutional Vitals: Vital Signs Temp Pulse Resp BP Pulse Ox 99 F 99 H 19 115/62 100 01/03/22 13:36 01/03/22 14:25 01/03/22 14:25 01/03/22 14:25 01/03/22 14:25 Temperature -Last 24 Hours Temperature 99 F Temperature 97.5 F Temperature 98.6 F Temperature 96.9 F Temperature 95.5 F Temperature 95.5 F Temperature 97.6 F Results - Labs CBC & Chem 7: 01/03/22 08:03 01/03/22 04:00 Labs: Abnormal lab results 01/02/22 01/02/22 01/02/22 Range/Units 20:00 20:23 20:23 WBC 14.7 H (4.5-11.0) K/mm3 RDW 16.3 H (13.2-15.2) % Seg Neuts % (Manual) 36.0 L (40.0-70.0) % Lymphocytes % (Manual) 61.0 H (13.4-35.0) % Seg Neutrophils # Man (1.8-7.7) K/mm3 Lymphocytes # (Manual) 9.0 H (1.2-5.4) K/mm3 PT 15.2 H (12.2-14.9) Sec. INR (0.87-1.13) APTT (24.2-36.6) Sec. ABG pH 7.049 L* (7.350-7.450) pH Units ABG pO2 90.3 H (80.0-90.0) mm Hg ABG HCO3 (20.0-26.0) mmol/L ABG O2 Saturation 93.2 L (95.0-99.0) % ABG Base Excess -10.6 L (-2.0-3.0) mmol/L ABG Hemoglobin 13.1 L (14.0-18.0) gm/dl Oxyhemoglobin 88.4 L (95.0-99.0) % Sodium (137-145) mmol/L Potassium (3.6-5.0) mmol/L Carbon Dioxide (22-30) mmol/L Creatinine (0.8-1.3) mg/dL Glucose (75-100) mg/dL Lactic Acid (0.7-2.0) mmol/L AST (5-40) units/L ALT (7-56) units/L Ammonia (25-60) umol/L Total Creatine Kinase (55-170) units/L Troponin T (0.00-0.029) ng/mL Total Protein (6.3-8.2) g/dL Albumin (3.9-5) g/dL LDL Cholesterol Direct (50-130) mg/dL Urine WBC (Auto) (0.0-6.0) /HPF Salicylates (2.8-20.0) mg/dL Acetaminophen (10.0-30.0) ug/mL 01/02/22 01/02/22 01/02/22 Range/Units 20:23 20:23 20:23 WBC (4.5-11.0) K/mm3 RDW (13.2-15.2) % Seg Neuts % (Manual) (40.0-70.0) % Lymphocytes % (Manual) (13.4-35.0) % Seg Neutrophils # Man (1.8-7.7) K/mm3 Lymphocytes # (Manual) (1.2-5.4) K/mm3 PT (12.2-14.9) Sec. INR (0.87-1.13) APTT (24.2-36.6) Sec. ABG pH (7.350-7.450) pH Units ABG pO2 (80.0-90.0) mm Hg ABG HCO3 (20.0-26.0) mmol/L ABG O2 Saturation (95.0-99.0) % ABG Base Excess (-2.0-3.0) mmol/L ABG Hemoglobin (14.0-18.0) gm/dl Oxyhemoglobin (95.0-99.0) % Sodium (137-145) mmol/L Potassium (3.6-5.0) mmol/L Carbon Dioxide 21 L (22-30) mmol/L Creatinine 1.4 H (0.8-1.3) mg/dL Glucose 260 H (75-100) mg/dL Lactic Acid 10.00 H* (0.7-2.0) mmol/L AST 115 H (5-40) units/L ALT 74 H (7-56) units/L Ammonia (25-60) umol/L Total Creatine Kinase 668 H (55-170) units/L Troponin T 0.200 H* (0.00-0.029) ng/mL Total Protein 5.7 L (6.3-8.2) g/dL Albumin 3.7 L (3.9-5) g/dL LDL Cholesterol Direct 136 H (50-130) mg/dL Urine WBC (Auto) (0.0-6.0) /HPF Salicylates < 0.3 L (2.8-20.0) mg/dL Acetaminophen (10.0-30.0) ug/mL 01/02/22 01/02/22 01/02/22 Range/Units 20:23 20:23 20:52 WBC (4.5-11.0) K/mm3 RDW (13.2-15.2) % Seg Neuts % (Manual) (40.0-70.0) % Lymphocytes % (Manual) (13.4-35.0) % Seg Neutrophils # Man (1.8-7.7) K/mm3 Lymphocytes # (Manual) (1.2-5.4) K/mm3 PT (12.2-14.9) Sec. INR (0.87-1.13) APTT (24.2-36.6) Sec. ABG pH (7.350-7.450) pH Units ABG pO2 (80.0-90.0) mm Hg ABG HCO3 (20.0-26.0) mmol/L ABG O2 Saturation (95.0-99.0) % ABG Base Excess (-2.0-3.0) mmol/L ABG Hemoglobin (14.0-18.0) gm/dl Oxyhemoglobin (95.0-99.0) % Sodium (137-145) mmol/L Potassium (3.6-5.0) mmol/L Carbon Dioxide (22-30) mmol/L Creatinine (0.8-1.3) mg/dL Glucose (75-100) mg/dL Lactic Acid (0.7-2.0) mmol/L AST (5-40) units/L ALT (7-56) units/L Ammonia 79.0 H (25-60) umol/L Total Creatine Kinase (55-170) units/L Troponin T (0.00-0.029) ng/mL Total Protein (6.3-8.2) g/dL Albumin (3.9-5) g/dL LDL Cholesterol Direct (50-130) mg/dL Urine WBC (Auto) 40.0 H (0.0-6.0) /HPF Salicylates (2.8-20.0) mg/dL Acetaminophen 5.0 L (10.0-30.0) ug/mL 01/02/22 01/03/22 01/03/22 Range/Units 20:52 00:50 04:00 WBC 2.1 L (4.5-11.0) K/mm3 RDW 16.6 H (13.2-15.2) % Seg Neuts % (Manual) 13.0 L (40.0-70.0) % Lymphocytes % (Manual) 67.0 H (13.4-35.0) % Seg Neutrophils # Man 0.3 L (1.8-7.7) K/mm3 Lymphocytes # (Manual) (1.2-5.4) K/mm3 PT (12.2-14.9) Sec. INR (0.87-1.13) APTT (24.2-36.6) Sec. ABG pH 7.306 L (7.350-7.450) pH Units ABG pO2 68.8 L (80.0-90.0) mm Hg ABG HCO3 19.4 L (20.0-26.0) mmol/L ABG O2 Saturation (95.0-99.0) % ABG Base Excess -6.4 L (-2.0-3.0) mmol/L ABG Hemoglobin (14.0-18.0) gm/dl Oxyhemoglobin 92.8 L (95.0-99.0) % Sodium (137-145) mmol/L Potassium (3.6-5.0) mmol/L Carbon Dioxide (22-30) mmol/L Creatinine (0.8-1.3) mg/dL Glucose (75-100) mg/dL Lactic Acid 6.80 H* (0.7-2.0) mmol/L AST (5-40) units/L ALT (7-56) units/L Ammonia (25-60) umol/L Total Creatine Kinase (55-170) units/L Troponin T (0.00-0.029) ng/mL Total Protein (6.3-8.2) g/dL Albumin (3.9-5) g/dL LDL Cholesterol Direct (50-130) mg/dL Urine WBC (Auto) (0.0-6.0) /HPF Salicylates (2.8-20.0) mg/dL Acetaminophen (10.0-30.0) ug/mL 01/03/22 01/03/22 01/03/22 Range/Units 04:00 05:30 05:45 WBC (4.5-11.0) K/mm3 RDW (13.2-15.2) % Seg Neuts % (Manual) (40.0-70.0) % Lymphocytes % (Manual) (13.4-35.0) % Seg Neutrophils # Man (1.8-7.7) K/mm3 Lymphocytes # (Manual) (1.2-5.4) K/mm3 PT (12.2-14.9) Sec. INR (0.87-1.13) APTT (24.2-36.6) Sec. ABG pH 7.096 L* (7.350-7.450) pH Units ABG pO2 44.6 L (80.0-90.0) mm Hg ABG HCO3 16.8 L (20.0-26.0) mmol/L ABG O2 Saturation 68.0 L (95.0-99.0) % ABG Base Excess -13.3 L (-2.0-3.0) mmol/L ABG Hemoglobin (14.0-18.0) gm/dl Oxyhemoglobin 66.6 L (95.0-99.0) % Sodium 146 H (137-145) mmol/L Potassium 3.0 L (3.6-5.0) mmol/L Carbon Dioxide 17 L (22-30) mmol/L Creatinine 2.5 H D (0.8-1.3) mg/dL Glucose 149 H (75-100) mg/dL Lactic Acid 11.10 H* (0.7-2.0) mmol/L AST (5-40) units/L ALT (7-56) units/L Ammonia (25-60) umol/L Total Creatine Kinase (55-170) units/L Troponin T (0.00-0.029) ng/mL Total Protein (6.3-8.2) g/dL Albumin (3.9-5) g/dL LDL Cholesterol Direct (50-130) mg/dL Urine WBC (Auto) (0.0-6.0) /HPF Salicylates (2.8-20.0) mg/dL Acetaminophen (10.0-30.0) ug/mL 01/03/22 01/03/22 01/03/22 Range/Units 08:03 08:03 09:10 WBC (4.5-11.0) K/mm3 RDW (13.2-15.2) % Seg Neuts % (Manual) (40.0-70.0) % Lymphocytes % (Manual) (13.4-35.0) % Seg Neutrophils # Man (1.8-7.7) K/mm3 Lymphocytes # (Manual) (1.2-5.4) K/mm3 PT 22.7 H (12.2-14.9) Sec. INR 1.76 H (0.87-1.13) APTT 39.6 H (24.2-36.6) Sec. ABG pH 7.154 L* (7.350-7.450) pH Units ABG pO2 47.8 L (80.0-90.0) mm Hg ABG HCO3 17.5 L (20.0-26.0) mmol/L ABG O2 Saturation 79.4 L (95.0-99.0) % ABG Base Excess -11.7 L (-2.0-3.0) mmol/L ABG Hemoglobin (14.0-18.0) gm/dl Oxyhemoglobin 78.0 L (95.0-99.0) % Sodium (137-145) mmol/L Potassium (3.6-5.0) mmol/L Carbon Dioxide (22-30) mmol/L Creatinine (0.8-1.3) mg/dL Glucose (75-100) mg/dL Lactic Acid 7.90 H* (0.7-2.0) mmol/L AST (5-40) units/L ALT (7-56) units/L Ammonia (25-60) umol/L Total Creatine Kinase (55-170) units/L Troponin T (0.00-0.029) ng/mL Total Protein (6.3-8.2) g/dL Albumin (3.9-5) g/dL LDL Cholesterol Direct (50-130) mg/dL Urine WBC (Auto) (0.0-6.0) /HPF Salicylates (2.8-20.0) mg/dL Acetaminophen (10.0-30.0) ug/mL 01/03/22 Range/Units 11:25 WBC (4.5-11.0) K/mm3 RDW (13.2-15.2) % Seg Neuts % (Manual) (40.0-70.0) % Lymphocytes % (Manual) (13.4-35.0) % Seg Neutrophils # Man (1.8-7.7) K/mm3 Lymphocytes # (Manual) (1.2-5.4) K/mm3 PT (12.2-14.9) Sec. INR (0.87-1.13) APTT (24.2-36.6) Sec. ABG pH 7.198 L* (7.350-7.450) pH Units ABG pO2 173.7 H (80.0-90.0) mm Hg ABG HCO3 18.6 L (20.0-26.0) mmol/L ABG O2 Saturation (95.0-99.0) % ABG Base Excess -9.4 L (-2.0-3.0) mmol/L ABG Hemoglobin 12.7 L (14.0-18.0) gm/dl Oxyhemoglobin (95.0-99.0) % Sodium (137-145) mmol/L Potassium (3.6-5.0) mmol/L Carbon Dioxide (22-30) mmol/L Creatinine (0.8-1.3) mg/dL Glucose (75-100) mg/dL Lactic Acid (0.7-2.0) mmol/L AST (5-40) units/L ALT (7-56) units/L Ammonia (25-60) umol/L Total Creatine Kinase (55-170) units/L Troponin T (0.00-0.029) ng/mL Total Protein (6.3-8.2) g/dL Albumin (3.9-5) g/dL LDL Cholesterol Direct (50-130) mg/dL Urine WBC (Auto) (0.0-6.0) /HPF Salicylates (2.8-20.0) mg/dL Acetaminophen (10.0-30.0) ug/mL Assessment and Plan Cultures: Blood culture [facility] 07/27 bottles. Urine culture no growth so far Sputum culture no growth so far A/P: 66 yo M no known PMHx now with: #Acute hypoxic resp failure: currently ont he vent. With pneumothorax, now with right lung opacity. #SIRS/sepsis: may be due to cardiac arrest, no evident infection at present. Low temps/leukocytosis and now leukoepenia #SKYLER: renally odse medications #Gpc bacteremia: probably contaminant Recs: -Contyinue vancomycin goal trough 10-20 -follow up blood cultures -Stopped Zosyn to avoid vanc/Zosyn combination in the setting of SKYLER -Started cefepime 2g q12h Thank you for the consult, we will continue to follow. Vita Asif MD [facility] ([facility] O: [phone] F: [phone]
--- NOTE | 2022-01-03 15:34 | Progress Note ---
<SHANTIVENICE FrankyJosseline - Last Filed: 01/03/22 15:30> Assessment and Plan Assessment and plan: This is a 66 year old male with no medical history admitted s/p cardiac arrest x 2, acute hypoxic respiratory failure, lactic acidosis, pneumothorax with possible bilateral cerebral edema and/or diffuse anoxic brain injury Neuro: Possible anoxic brain injury, acute metabolic encephalopathy -Maintain sleep-wake cycle -aspiration/seizure precautions -As needed analgesia -CT head shows findings worrisome for bilateral cerebral edema and/or diffuse anoxic brain injury -Neurology consulted, appreciate recommendations Cardiac: s/p cardiopulmonary arrest x2 with ROSC, V. fib, NSTEMI -Cardiology consulted, appreciate recommendations -Blood pressure monitoring per protocol -Vasopressor support with Levophed, vasopressin, Arie-Synephrine -MAP goal greater than 65 -Amio gtt -A-line placed -Echocardiogram pending -Heparin gtt Respiratory: Acute hypoxemic hypercarbic respiratory failure, right pneumothorax -CCM consulted, appreciate recommendations -Intubated on 01/02 with a 7.50 ETT at 24 the lips -A.m. vent settings: AC/PRVC rate 24, tidal volume 450, FiO2 100%, PEEP 8 -See RT notes for titration -A.m. ABG and CXR noted -Right chest tube placed in the ED -Second right chest tube placed in the ICU -VAP bundle -SPO2 monitoring GI: Transaminitis -PPI -Wean vasopressor requirement support initiation of tube feedings -Nutrition consult for tube feedings -BR: senakot s -Trend LFTs : Hypernatremia, hypokalemia, metabolic acidosis, acute kidney injury likely secondary to vasomotor nephropathy in setting of cardiac arrest -Nephrology consulted, appreciate recommendations -Strict intake and output -Renally dose medications -Avoid nephrotoxic medications -urine lytes pending -Sodium bicarb gtt -Trend BMP ID: Sepsis (POA), GPC bacteremia -Presented with hypothermia, leukocytosis, acute kidney injury -Infectious disease consulted, appreciate recommendation -Antibiotic therapy with cefepime, vancomycin x1 -f/u blood culture -01/02 gram-positive cocci 1/2 -Monitor WBC and temperature curve Endo: NAD -Avoid hypoglycemia -SSI -Accu-Cheks q. 6hr Heme: Leukopenia -Trend CBC -Transfuse hemoglobin less than 7 -SCDs to BLE while in bed The high probability of a clinically significant, sudden or life threatening deterioration of the [multiple] system(s) required my full and direct attention, intervention and personal management. The aggregate critical care time was [90] minutes. This time is in addition to time spent performing reported procedures but includes the following: [x] Data Review and interpretation [x] Patient assessment and monitoring of vital signs [x] Documentation [x] Medication orders and management Disposition Plan: icu Total Time Spent with Patient (Minutes): 90 History Interval history: This is a 66-year-old male with a medical history over the to the emergency department on 01/02 and cardiopulmonary arrest via EMS. Patient was said to be at home watching TV when he suddenly went to cardiac arrest and EMS was immediately called and patient was transferred to the emergency department. CPR was conducted in route. Upon arrival to the emergency department patient was intubated and received epinephrine and sodium bicarbonate with ROSC. During the course of resuscitation patient was noted to be in V. tach and required IV amiodarone and subsequently started on amiodarone drip. ECG showed possible ischemic changes however upon review by core blower operator patient was deemed not to have STEMI. Work-up in the emergency department revealed leukocytosis, lactic acidosis, elevated troponins, UTI noted on UA. CXR showed small right apical pneumothorax and CT head showed concern for bilateral cerebral edema and/or diffuse anoxic brain injury. In the emergency department patient was had a chest tube placed by ED physician and started on IV fluids, pressors and antibiotics. Patient was admitted to the hospitalist service with consults to CCM, cardiology and neurology s/p cardiac arrest, Hospital course to date: 01/03: Patient had another cardiac arrest in the ICU with ROSC, CXR showed persistent right pleural pneumothorax and patient received another chest tube this morning. A-line was placed in the right femoral. This morning patient was on Levophed and vasopressin. Patient was started on a bicarbonate drip Hospitalist Physical - Constitutional Vitals: Temp Pulse Resp BP Pulse Ox 99 F 98 H 17 93/54 100 01/03/22 13:36 01/03/22 15:11 01/03/22 15:11 01/03/22 15:11 01/03/22 15:11 General appearance: Present: no acute distress, other (Intubated) - EENT Eyes: Absent: PERRL, EOM intact ENT: dentition normal - Neck Neck: Present: normal ROM - Respiratory Respiratory effort: normal Respiratory: bilateral: diminished - Cardiovascular Rhythm: regular Heart Sounds: Present: S1 & S2. Absent: systolic murmur, diastolic murmur - Extremities Extremities: no ischemia, pulses intact, pulses symmetrical, No edema, normal temperature, normal color Peripheral Pulses: within normal limits - Abdominal General gastrointestinal: soft, non-tender, hypoactive bowel sounds - Integumentary Integumentary: Present: warm, dry - Psychiatric Psychiatric: other - Neurologic Neurologic: other (no cough/gag, Pupils not reactive, no response to painful stimuli) - Allied Health Allied health notes reviewed: nursing, RT, social work HEART Score - HEART Score Troponin: Troponin T 0.200 ng/mL (0.00-0.029) H* 01/02/22 20:23 Results - Labs CBC & Chem 7: 01/03/22 08:03 01/03/22 04:00 Labs: Laboratory Last Values WBC 2.1 K/mm3 (4.5-11.0) L 01/03/22 04:00 RBC 4.85 M/mm3 (3.65-5.03) 01/03/22 04:00 Hgb 13.7 gm/dl (11.8-15.2) 01/03/22 08:03 Hct 42.0 % (35.5-45.6) 01/03/22 08:03 MCV 94 fl (84-94) 01/03/22 04:00 MCH 30 pg (28-32) 01/03/22 04:00 MCHC 32 % (32-34) 01/03/22 04:00 RDW 16.6 % (13.2-15.2) H 01/03/22 04:00 Plt Count 202 K/mm3 (140-440) 01/03/22 08:03 Lymph # (Auto) Power Electronics Research Engineer 01/02/22 20:23 Add Manual Diff Complete 01/03/22 04:00 Total Counted 100 01/03/22 04:00 Seg Neuts % (Manual) 13.0 % (40.0-70.0) L 01/03/22 04:00 Band Neutrophils % 2.0 % 01/03/22 04:00 Lymphocytes % (Manual) 67.0 % (13.4-35.0) H 01/03/22 04:00 Reactive Lymphs % (Man) 7.0 % 01/03/22 04:00 Monocytes % (Manual) 1.0 % (0.0-7.3) 01/03/22 04:00 Eosinophils % (Manual) 0 % (0.0-4.3) 01/03/22 04:00 Basophils % (Manual) 0 % (0.0-1.8) 01/03/22 04:00 Metamyelocytes % 2.0 % 01/03/22 04:00 Myelocytes % 8.0 % 01/03/22 04:00 Promyelocytes % 0 % 01/03/22 04:00 Blast Cells % 0 % 01/03/22 04:00 Nucleated RBC % Not Reportable 01/03/22 04:00 Seg Neutrophils # Man 0.3 K/mm3 (1.8-7.7) L 01/03/22 04:00 Band Neutrophils # 0.0 K/mm3 01/03/22 04:00 Lymphocytes # (Manual) 1.4 K/mm3 (1.2-5.4) 01/03/22 04:00 Abs React Lymphs (Man) 0.1 K/mm3 01/03/22 04:00 Monocytes # (Manual) 0.0 K/mm3 (0.0-0.8) 01/03/22 04:00 Eosinophils # (Manual) 0.0 K/mm3 (0.0-0.4) 01/03/22 04:00 Basophils # (Manual) 0.0 K/mm3 (0.0-0.1) 01/03/22 04:00 Metamyelocytes # 0.0 K/mm3 01/03/22 04:00 Myelocytes # 0.2 K/mm3 01/03/22 04:00 Promyelocytes # 0.0 K/mm3 01/03/22 04:00 Blast Cells # 0.0 K/mm3 01/03/22 04:00 WBC Morphology Not Reportable 01/03/22 04:00 Hypersegmented Neuts Not Reportable 01/03/22 04:00 Hyposegmented Neuts Not Reportable 01/03/22 04:00 Hypogranular Neuts Not Reportable 01/03/22 04:00 Smudge Cells Not Reportable 01/03/22 04:00 Toxic Granulation Not Reportable 01/03/22 04:00 Toxic Vacuolation Not Reportable 01/03/22 04:00 Dohle Bodies Not Reportable 01/03/22 04:00 Pelger-Huet Anomaly Not Reportable 01/03/22 04:00 James Rods Not Reportable 01/03/22 04:00 Platelet Estimate Consistent w auto 01/03/22 04:00 Clumped Platelets 2+ 01/03/22 04:00 Plt Clumps, EDTA Not Reportable 01/03/22 04:00 Large Platelets 2+ 01/03/22 04:00 Giant Platelets Not Reportable 01/03/22 04:00 Platelet Satelliting Not Reportable 01/03/22 04:00 Plt Morphology Comment Not Reportable 01/03/22 04:00 RBC Morphology Not Reportable 01/03/22 04:00 Dimorphic RBCs Not Reportable 01/03/22 04:00 Polychromasia Not Reportable 01/03/22 04:00 Hypochromasia Not Reportable 01/03/22 04:00 Poikilocytosis Not Reportable 01/03/22 04:00 Anisocytosis 1+ 01/03/22 04:00 Microcytosis Not Reportable 01/03/22 04:00 Macrocytosis Not Reportable 01/03/22 04:00 Spherocytes Not Reportable 01/03/22 04:00 Pappenheimer Bodies Not Reportable 01/03/22 04:00 Sickle Cells Not Reportable 01/03/22 04:00 Target Cells Not Reportable 01/03/22 04:00 Tear Drop Cells Not Reportable 01/03/22 04:00 Ovalocytes Not Reportable 01/03/22 04:00 Helmet Cells Not Reportable 01/03/22 04:00 [place] Bodies Not Reportable 01/03/22 04:00 [place] Rings Not Reportable 01/03/22 04:00 Ramu Cells Not Reportable 01/03/22 04:00 Bite Cells Not Reportable 01/03/22 04:00 Crenated Cell Not Reportable 01/03/22 04:00 Elliptocytes Not Reportable 01/03/22 04:00 Acanthocytes (Spur) Not Reportable 01/03/22 04:00 Rouleaux Not Reportable 01/03/22 04:00 Hemoglobin C Crystals Not Reportable 01/03/22 04:00 Schistocytes Not Reportable 01/03/22 04:00 Malaria parasites Not Reportable 01/03/22 04:00 Hunter Bodies Not Reportable 01/03/22 04:00 Hem Pathologist Commnt No 01/03/22 04:00 PT 22.7 Sec. (12.2-14.9) H 01/03/22 08:03 INR 1.76 (0.87-1.13) H 01/03/22 08:03 APTT 39.6 Sec. (24.2-36.6) H 01/03/22 08:03 ABG pH 7.198 pH Units (7.350-7.450) L* 01/03/22 11:25 ABG pCO2 49.0 mm Hg 01/03/22 11:25 ABG pO2 173.7 mm Hg (80.0-90.0) H 01/03/22 11:25 ABG HCO3 18.6 mmol/L (20.0-26.0) L 01/03/22 11:25 ABG O2 Saturation 98.9 % (95.0-99.0) 01/03/22 11:25 ABG O2 Content 17.7 (0.0-44) 01/03/22 11:25 ABG Base Excess -9.4 mmol/L (-2.0-3.0) L 01/03/22 11:25 ABG Hemoglobin 12.7 gm/dl (14.0-18.0) L 01/03/22 11:25 ABG Carboxyhemoglobin 1.1 % (0.0-5.0) 01/03/22 11:25 ABG Methemoglobin 0.6 % (0.0-1.5) 01/03/22 11:25 Oxyhemoglobin 97.2 % (95.0-99.0) 01/03/22 11:25 FiO2 100 % 01/03/22 11:25 Sodium 146 mmol/L (137-145) H 01/03/22 04:00 Potassium 3.0 mmol/L (3.6-5.0) L 01/03/22 04:00 Chloride 106.2 mmol/L (98-107) 01/03/22 04:00 Carbon Dioxide 17 mmol/L (22-30) L 01/03/22 04:00 Anion Gap 26 mmol/L 01/03/22 04:00 BUN 19 mg/dL (9-20) 01/03/22 04:00 Creatinine 2.5 mg/dL (0.8-1.3) H D 01/03/22 04:00 Estimated GFR 32 ml/min 01/03/22 04:00 BUN/Creatinine Ratio 8 % 01/03/22 04:00 Glucose 149 mg/dL (75-100) H 01/03/22 04:00 POC Glucose 97 mg/dL (70-105) 01/03/22 06:31 Lactic Acid 7.90 mmol/L (0.7-2.0) H* 01/03/22 08:03 Calcium 8.4 mg/dL (8.4-10.2) 01/03/22 04:00 Total Bilirubin 0.30 mg/dL (0.1-1.2) 01/02/22 20: AST 115 units/L (5-40) H 01/02/22 20: ALT 74 units/L (7-56) H 01/02/22 20: Alkaline Phosphatase 123 units/L (35-129) 01/02/22 20: Ammonia 79.0 umol/L (25-60) H 01/02/22 20:23 Total Creatine Kinase 668 units/L (55-170) H 01/02/22 20: Troponin T 0.200 ng/mL (0.00-0.029) H* 01/02/22 20: C-Reactive Protein 1.10 mg/dL (0.00-1.30) 01/02/22: NT-Pro-B Natriuret Pep 275.2 pg/mL (0-900) 01/02/22 20: Total Protein 5.7 g/dL (6.3-8.2) L 01/02/22: Albumin 3.7 g/dL (3.9-5) L 01/02/22: Albumin/Globulin Ratio 1.9 % 01/02/22 20: Triglycerides 106 mg/dL (2-149) 01/02/22 20: Cholesterol 196 mg/dL (50-199) 01/02/22 20: LDL Cholesterol Direct 136 mg/dL (50-130) H 01/02/22 20:23 HDL Cholesterol 42 mg/dL (40-59) 01/02/22 20:23 Cholesterol/HDL Ratio 4.66 % 01/02/22 20:23 Urine Color Yellow (Yellow) 01/02/22 20:52 Urine Turbidity Cloudy (Clear) 01/02/22 20:52 Urine pH 5.0 (5.0-7.0) 01/02/22 20:52 Ur Specific Central 1.014 (1.003-1.030) 01/02/22 20:52 Urine Protein <15 mg/dl mg/dL (Negative) 01/02/22 20:52 Urine Glucose (UA) Neg mg/dL (Negative) 01/02/22 20:52 Urine Ketones Neg mg/dL (Negative) 01/02/22 20:52 Urine Blood Sm (Negative) 01/02/22 20:52 Urine Nitrite Neg (Negative) 01/02/22 20:52 Urine Bilirubin Neg (Negative) 01/02/22 20:52 Urine Urobilinogen < 2.0 mg/dL (<2.0) 01/02/22 20:52 Ur Leukocyte Esterase Mod (Negative) 01/02/22 20:52 Urine WBC (Auto) 40.0 /HPF (0.0-6.0) H 01/02/22 20:52 Urine RBC (Auto) 13.0 /HPF (0.0-6.0) 01/02/22 20:52 U Epithel Cells (Auto) 2.0 /HPF (0-13.0) 01/02/22 20:52 Urine Bacteria (Auto) 2+ /HPF (Negative) 01/02/22 20:52 Urine Mucus Few /HPF 01/02/22 20:52 Salicylates < 0.3 mg/dL (2.8-20.0) L 01/02/22 20:23 Urine Opiates Screen Negative 01/02/22 20:52 Urine Methadone Screen Negative 01/02/22 20:52 Acetaminophen 5.0 ug/mL (10.0-30.0) L 01/02/22 20:23 Ur Barbiturates Screen Negative 01/02/22 20:52 Ur Phencyclidine Scrn Negative 01/02/22 20:52 Ur Amphetamines Screen Negative 01/02/22 20:52 U Benzodiazepines Scrn Negative 01/02/22 20:52 Urine Cocaine Screen Negative 01/02/22 20:52 U Marijuana (THC) Screen Negative 01/02/22 20:52 Drugs of Abuse Note Disclamer 01/02/22 20:52 Plasma/Serum Alcohol < 0.01 % (0-0.07) 01/02/22 20:23 Microbiology: Microbiology 01/02/22 20:23 Peripheral/Venous Blood Culture - Preliminary 01/03/22 Unknown Tracheal Aspirate Sputum Culture - Preliminary 01/02/22 20:52 Urine,Clean Catch Urine Culture - Preliminary NO GROWTH AFTER 24 HOURS 01/02/22 20:23 Peripheral/Venous Blood Culture - Preliminary Culture in Progress Active Medications - Current Medications Current Medications: Generic Name Dose Route Start Last Admin Trade Name Freq PRN Reason Stop Dose Admin Acetaminophen 650 mg 01/02/22 22:53 Acetaminophen 650 Mg Rect Supp [place] Q6H PRN Pain MILD(1-3)/Fever >100.5/CANTRELL Famotidine 10 mg 01/03/22 11:00 01/03/22 11:08 Famotidine 20 Mg/2 Ml Inj IV 10 mg BID SALMA Administration NORepinephrine/NS 8 MG-250 ML 8 mg in 250 mls @ 3.75 mls/hr 01/02/22 21:00 01/03/22 13:11 Norepinephrine/Ns 8 Mg-250 Ml (Double Conc) IV 0 mcg/min TITRATE SALMA 0 mls/hr Titration Protocol 2 MCG/MIN Amiodarone HCl 900 mg/ 500 mls @ 33.333 mls/hr 01/02/22 23:00 01/03/22 05:10 Dextrose IV 0.5 mg/min DIRECT SALMA 16.667 mls/hr Titration Protocol 1 MG/MIN Vasopressin 20 unit/ Sodium 101 mls @ 9.09 mls/hr 01/03/22 07:00 01/03/22 14:29 Chloride IV 0 units/min TITR SALMA 0 mls/hr Titration Protocol 0.03 UNITS/MIN Epinephrine 8 mg/ Sodium 250 mls @ 3.75 mls/hr 01/03/22 08:00 01/03/22 08:03 Chloride IV 2 mcg/min TITR SALMA 3.75 mls/hr Administration Protocol 2 MCG/MIN Sodium Bicarbonate 150 meq/ 1,000 mls @ 150 mls/hr 01/03/22 09:00 01/03/22 09:41 Dextrose IV 150 mls/hr DIRECT SALMA Administration Heparin Sodium/Sodium Chloride 25,000 unit in 500 mls @ 20 mls/hr 01/03/22 11:00 01/03/22 11:09 Heparin/ 0.45% Nacl-25,000 Unit/500 Ml IV 1,000 units/hr TITRATE SALMA 20 mls/hr Administration Protocol 1,000 UNITS/HR Vancomycin HCl 1 gm in 250 mls @ 167.007 mls/hr 01/03/22 15:00 Vancomycin/Ns 1 Gm/250 Ml IV 01/03/22 18:00 ONCE@1500 SALMA Cefepime HCl 2 gm in 100 mls @ 200 mls/hr 01/03/22 16:00 Cefepime/Ns 2 Gm/100 Ml IV Q12H SALMA Protocol Magnesium Hydroxide 30 ml 01/02/22 22:53 Magnesium Hydroxide (Mom) Oral Liqd Udc PO Q4H PRN Constipation Morphine Sulfate 2 mg 01/02/22 22:53 Morphine 2 Mg/1 Ml Inj IV Q4H PRN Pain, Moderate (4-6) Morphine Sulfate 4 mg 01/02/22 22:53 Morphine 4 Mg/1 Ml Inj IV Q4H PRN Pain , Severe (7-10) Ondansetron HCl 4 mg 01/02/22 22:53 Ondansetron 4 Mg/2 Ml Inj IV Q8H PRN Nausea And Vomiting Sodium Chloride 10 ml 01/03/22 10:00 01/03/22 09:28 Sodium Chloride 0.9% 10 Ml Flush Syringe IV 10 ml BID SALMA Administration Sodium Chloride 10 ml 01/02/22 22:53 Sodium Chloride 0.9% 10 Ml Flush Syringe IV PRN PRN LINE FLUSH <LATASHA BOWMAN - Last Filed: 01/04/22 06:03> Assessment and Plan Assessment and plan: I saw and evaluated the patient. I agree with the findings and the plan of care as documented in the Nurse Practitioner's~note, with the following corrections and additions. Hospitalist Physical - Constitutional Vitals: Temp Pulse Resp BP Pulse Ox 97.9 F 86 30 H 87/69 97 01/04/22 04:00 01/04/22 05:45 01/04/22 05:45 01/04/22 05:45 01/04/22 05:45 HEART Score - HEART Score Troponin: Troponin T 0.200 ng/mL (0.00-0.029) H* 01/02/22 20:23 Results - Labs CBC & Chem 7: 01/04/22 04:45 01/03/22 Unknown Labs: Laboratory Last Values WBC 4.7 K/mm3 (4.5-11.0) 01/04/22 04:45 RBC 3.87 M/mm3 (3.65-5.03) 01/04/22 04:45 Hgb 11.6 gm/dl (11.8-15.2) L 01/04/22 04:45 Hct 34.9 % (35.5-45.6) L D 01/04/22 04:45 MCV 90 fl (84-94) 01/04/22 04:45 MCH 30 pg (28-32) 01/04/22 04:45 MCHC 33 % (32-34) 01/04/22 04:45 RDW 15.6 % (13.2-15.2) H 01/04/22 04:45 Plt Count 151 K/mm3 (140-440) 01/04/22 04:45 Lymph # (Auto) Power [employer] Research Engineer 01/02/22 20:23 Add Manual Diff Complete 01/03/22 04:00 Total Counted 100 01/03/22 04:00 Seg Neuts % (Manual) 13.0 % (40.0-70.0) L 01/03/22 04:00 Band Neutrophils % 2.0 % 01/03/22 04:00 Lymphocytes % (Manual) 67.0 % (13.4-35.0) H 01/03/22 04:00 Reactive Lymphs % (Man) 7.0 % 01/03/22 04:00 Monocytes % (Manual) 1.0 % (0.0-7.3) 01/03/22 04:00 Eosinophils % (Manual) 0 % (0.0-4.3) 01/03/22 04:00 Basophils % (Manual) 0 % (0.0-1.8) 01/03/22 04:00 Metamyelocytes % 2.0 % 01/03/22 04:00 Myelocytes % 8.0 % 01/03/22 04:00 Promyelocytes % 0 % 01/03/22 04:00 Blast Cells % 0 % 01/03/22 04:00 Nucleated RBC % Not Reportable 01/03/22 04:00 Seg Neutrophils # Man 0.3 K/mm3 (1.8-7.7) L 01/03/22 04:00 Band Neutrophils # 0.0 K/mm3 01/03/22 04:00 Lymphocytes # (Manual) 1.4 K/mm3 (1.2-5.4) 01/03/22 04:00 Abs React Lymphs (Man) 0.1 K/mm3 01/03/22 04:00 Monocytes # (Manual) 0.0 K/mm3 (0.0-0.8) 01/03/22 04:00 Eosinophils # (Manual) 0.0 K/mm3 (0.0-0.4) 01/03/22 04:00 Basophils # (Manual) 0.0 K/mm3 (0.0-0.1) 01/03/22 04:00 Metamyelocytes # 0.0 K/mm3 01/03/22 04:00 Myelocytes # 0.2 K/mm3 01/03/22 04:00 Promyelocytes # 0.0 K/mm3 01/03/22 04:00 Blast Cells # 0.0 K/mm3 01/03/22 04:00 WBC Morphology Not Reportable 01/03/22 04:00 Hypersegmented Neuts Not Reportable 01/03/22 04:00 Hyposegmented Neuts Not Reportable 01/03/22 04:00 Hypogranular Neuts Not Reportable 01/03/22 04:00 Smudge Cells Not Reportable 01/03/22 04:00 Toxic Granulation Not Reportable 01/03/22 04:00 Toxic Vacuolation Not Reportable 01/03/22 04:00 Dohle Bodies Not Reportable 01/03/22 04:00 Pelger-Huet Anomaly Not Reportable 01/03/22 04:00 James Rods Not Reportable 01/03/22 04:00 Platelet Estimate Consistent w auto 01/03/22 04:00 Clumped Platelets 2+ 01/03/22 04:00 Plt Clumps, EDTA Not Reportable 01/03/22 04:00 Large Platelets 2+ 01/03/22 04:00 Giant Platelets Not Reportable 01/03/22 04:00 Platelet Satelliting Not Reportable 01/03/22 04:00 Plt Morphology Comment Not Reportable 01/03/22 04:00 RBC Morphology Not Reportable 01/03/22 04:00 Dimorphic RBCs Not Reportable 01/03/22 04:00 Polychromasia Not Reportable 01/03/22 04:00 Hypochromasia Not Reportable 01/03/22 04:00 Poikilocytosis Not Reportable 01/03/22 04:00 Anisocytosis 1+ 01/03/22 04:00 Microcytosis Not Reportable 01/03/22 04:00 Macrocytosis Not Reportable 01/03/22 04:00 Spherocytes Not Reportable 01/03/22 04:00 Pappenheimer Bodies Not Reportable 01/03/22 04:00 Sickle Cells Not Reportable 01/03/22 04:00 Target Cells Not Reportable 01/03/22 04:00 Tear Drop Cells Not Reportable 01/03/22 04:00 Ovalocytes Not Reportable 01/03/22 04:00 Helmet Cells Not Reportable 01/03/22 04:00 [place] Bodies Not Reportable 01/03/22 04:00 [place] Rings Not Reportable 01/03/22 04:00 Ramu Cells Not Reportable 01/03/22 04:00 Bite Cells Not Reportable 01/03/22 04:00 Crenated Cell Not Reportable 01/03/22 04:00 Elliptocytes Not Reportable 01/03/22 04:00 Acanthocytes (Spur) Not Reportable 01/03/22 04:00 Rouleaux Not Reportable 01/03/22 04:00 Hemoglobin C Crystals Not Reportable 01/03/22 04:00 Schistocytes Not Reportable 01/03/22 04:00 Malaria parasites Not Reportable 01/03/22 04:00 [place] Bodies Not Reportable 01/03/22 04:00 Hem Pathologist Commnt No 01/03/22 04:00 PT 22.7 Sec. (12.2-14.9) H 01/03/22 08:03 INR 1.76 (0.87-1.13) H 01/03/22 08:03 APTT 99.5 Sec. (24.2-36.6) H* 01/03/22 16:51 Heparin Anti-Xa Level 0.30 U.I./ml (0.3-0.7) 01/04/22 02:00 ABG pH 7.246 pH Units (7.350-7.450) L 01/03/22 18:20 ABG pCO2 49.6 mm Hg 01/03/22 18:20 ABG pO2 118.9 mm Hg (80.0-90.0) H 01/03/22 18:20 ABG HCO3 21.1 mmol/L (20.0-26.0) 01/03/22 18:20 ABG O2 Saturation 97.9 % (95.0-99.0) 01/03/22 18:20 ABG O2 Content 17.9 (0.0-44) 01/03/22 18:20 ABG Base Excess -6.4 mmol/L (-2.0-3.0) L 01/03/22 18:20 ABG Hemoglobin 13.1 gm/dl (14.0-18.0) L 01/03/22 18:20 ABG Carboxyhemoglobin 1.2 % (0.0-5.0) 01/03/22 18:20 ABG Methemoglobin 0.6 % (0.0-1.5) 01/03/22 18:20 Oxyhemoglobin 96.2 % (95.0-99.0) 01/03/22 18:20 FiO2 80 % 01/03/22 18:20 Sodium 146 mmol/L (137-145) H 01/03/22 Unknown Potassium 3.9 mmol/L (3.6-5.0) D 01/03/22 Unknown Chloride 108.4 mmol/L (98-107) H 01/03/22 Unknown Carbon Dioxide 24 mmol/L (22-30) D 01/03/22 Unknown Anion Gap 18 mmol/L 01/03/22 Unknown BUN 28 mg/dL (9-20) H 01/03/22 Unknown Creatinine 3.1 mg/dL (0.8-1.3) H 01/03/22 Unknown Estimated GFR 25 ml/min 01/03/22 Unknown BUN/Creatinine Ratio 9 % 01/03/22 Unknown Glucose 92 mg/dL (75-100) 01/03/22 Unknown POC Glucose 97 mg/dL (70-105) 01/03/22 06:31 Lactic Acid 7.90 mmol/L (0.7-2.0) H* 01/03/22 08:03 Calcium 7.6 mg/dL (8.4-10.2) L 01/03/22 Unknown Phosphorus 1.80 mg/dL (2.5-4.5) L 01/04/22 04:45 Magnesium 1.10 mg/dL (1.7-2.3) L 01/04/22 04:45 Total Bilirubin 0.30 mg/dL (0.1-1.2) 01/03/22 Unknown AST 738 units/L (5-40) H 01/03/22 Unknown ALT 488 units/L (7-56) H 01/03/22 Unknown Alkaline Phosphatase 71 units/L (35-129) 01/03/22 Unknown Ammonia 79.0 umol/L (25-60) H 01/02/22 20: Total Creatine Kinase 668 units/L (55-170) H 01/02/22 20:23 Troponin T 0.200 ng/mL (0.00-0.029) H* 01/02/22 20:23 C-Reactive Protein 1.10 mg/dL (0.00-1.30) 01/02/22 20:23 NT-Pro-B Natriuret Pep 275.2 pg/mL (0-900) 01/02/22 20:23 Total Protein 4.5 g/dL (6.3-8.2) L D 01/03/22 Unknown Albumin 2.8 g/dL (3.9-5) L 01/03/22 Unknown Albumin/Globulin Ratio 1.6 % 01/03/22 Unknown Triglycerides 106 mg/dL (2-149) 01/02/22 20:23 Cholesterol 196 mg/dL (50-199) 01/02/22 20:23 LDL Cholesterol Direct 136 mg/dL (50-130) H 01/02/22 20:23 HDL Cholesterol 42 mg/dL (40-59) 01/02/22 20:23 Cholesterol/HDL Ratio 4.66 % 01/02/22 20:23 Urine Color Yellow (Yellow) 01/02/22 20:52 Urine Turbidity Cloudy (Clear) 01/02/22 20:52 Urine pH 5.0 (5.0-7.0) 01/02/22 20:52 Ur Specific Central 1.014 (1.003-1.030) 01/02/22 20:52 Urine Protein <15 mg/dl mg/dL (Negative) 01/02/22 20:52 Urine Glucose (UA) Neg mg/dL (Negative) 01/02/22 20:52 Urine Ketones Neg mg/dL (Negative) 01/02/22 20:52 Urine Blood Sm (Negative) 01/02/22 20:52 Urine Nitrite Neg (Negative) 01/02/22 20:52 Urine Bilirubin Neg (Negative) 01/02/22 20:52 Urine Urobilinogen < 2.0 mg/dL (<2.0) 01/02/22 20:52 Ur Leukocyte Esterase Mod (Negative) 01/02/22 20:52 Urine WBC (Auto) 40.0 /HPF (0.0-6.0) H 01/02/22 20:52 Urine RBC (Auto) 13.0 /HPF (0.0-6.0) 01/02/22 20:52 U Epithel Cells (Auto) 2.0 /HPF (0-13.0) 01/02/22 20:52 Urine Bacteria (Auto) 2+ /HPF (Negative) 01/02/22 20:52 Urine Mucus Few /HPF 01/02/22 20:52 Urine Creatinine 70.0 mg/dL (0.1-20.0) H 01/03/22 20:50 Urine Sodium 91 mmol/L 01/03/22 20:50 Salicylates < 0.3 mg/dL (2.8-20.0) L 01/02/22 20:23 Urine Opiates Screen Negative 01/02/22 20:52 Urine Methadone Screen Negative 01/02/22 20:52 Acetaminophen 5.0 ug/mL (10.0-30.0) L 01/02/22 20:23 Ur Barbiturates Screen Negative 01/02/22 20:52 Ur Phencyclidine Scrn Negative 01/02/22 20:52 Ur Amphetamines Screen Negative 01/02/22 20:52 U Benzodiazepines Scrn Negative 01/02/22 20:52 Urine Cocaine Screen Negative 01/02/22 20:52 U Marijuana (THC) Screen Negative 01/02/22 20:52 Drugs of Abuse Note Disclamer 01/02/22 20:52 Plasma/Serum Alcohol < 0.01 % (0-0.07) 01/02/22 20:23 Microbiology: Microbiology 01/02/22 20:23 Peripheral/Venous Blood Culture - Preliminary NO GROWTH AFTER 24 HOURS 01/02/22 20:23 Peripheral/Venous Blood Culture - Preliminary 01/03/22 Unknown Tracheal Aspirate Sputum Culture - Preliminary 01/02/22 20:52 Urine,Clean Catch Urine Culture - Preliminary NO GROWTH AFTER 24 HOURS Active Medications - Current Medications Current Medications: Generic Name Dose Route Start Last Admin Trade Name Freq PRN Reason Stop Dose Admin Acetaminophen 650 mg 01/02/22 22:53 Acetaminophen 650 Mg Rect Supp NH Q6H PRN Pain MILD(1-3)/Fever >100.5/CANTRELL Famotidine 10 mg 01/03/22 11:00 01/03/22 21:29 Famotidine 20 Mg/2 Ml Inj IV 10 mg BID SALMA Administration NORepinephrine/NS 8 MG-250 ML 8 mg in 250 mls @ 3.75 mls/hr 01/02/22 21:00 01/04/22 03:10 Norepinephrine/Ns 8 Mg-250 Ml (Double Conc) IV 8 mcg/min TITRATE SALMA 15 mls/hr Titration Protocol 2 MCG/MIN Amiodarone HCl 900 mg/ 500 mls @ 33.333 mls/hr 01/02/22 23:00 01/03/22 21:49 Dextrose IV 0.5 mg/min DIRECT SALMA 16.667 mls/hr Administration Protocol 1 MG/MIN Vasopressin 20 unit/ Sodium 101 mls @ 9.09 mls/hr 01/03/22 07:00 01/04/22 05:56 Chloride IV 0 units/min TITR SALMA 0 mls/hr Titration Protocol 0.03 UNITS/MIN Epinephrine 8 mg/ Sodium 250 mls @ 3.75 mls/hr 01/03/22 08:00 01/03/22 21:54 Chloride IV 9 mcg/min TITR SALMA 16.875 mls/hr Titration Protocol 2 MCG/MIN Sodium Bicarbonate 150 meq/ 1,000 mls @ 150 mls/hr 01/03/22 09:00 01/04/22 04:04 Dextrose IV 150 mls/hr DIRECT SALMA Administration Heparin Sodium/Sodium Chloride 25,000 unit in 500 mls @ 20 mls/hr 01/03/22 11:00 01/04/22 03:15 Heparin/ 0.45% Nacl-25,000 Unit/500 Ml IV 1,200 units/hr TITRATE SALMA 24 mls/hr Titration Protocol 1,000 UNITS/HR Cefepime HCl 2 gm in 100 mls @ 200 mls/hr 01/03/22 16:00 01/04/22 04:05 Cefepime/Ns 2 Gm/100 Ml IV 200 mls/hr Q12H SALMA Administration Protocol Magnesium Hydroxide 30 ml 01/02/22 22:53 Magnesium Hydroxide (Mom) Oral Liqd Udc PO Q4H PRN Constipation Morphine Sulfate 2 mg 01/02/22 22:53 Morphine 2 Mg/1 Ml Inj IV Q4H PRN Pain, Moderate (4-6) Morphine Sulfate 4 mg 01/02/22 22:53 Morphine 4 Mg/1 Ml Inj IV Q4H PRN Pain , Severe (7-10) Ondansetron HCl 4 mg 01/02/22 22:53 Ondansetron 4 Mg/2 Ml Inj IV Q8H PRN Nausea And Vomiting Sodium Chloride 10 ml 01/03/22 10:00 01/03/22 21:29 Sodium Chloride 0.9% 10 Ml Flush Syringe IV 10 ml BID SALMA Administration Sodium Chloride 10 ml 01/02/22 22:53 Sodium Chloride 0.9% 10 Ml Flush Syringe IV PRN PRN LINE FLUSH Nutrition/Malnutrition Assess - Dietary Evaluation Nutrition/Malnutrition Findings: Nutrition Notes Start: 01/03/22 17:09 Freq: Status: Active Protocol: Document 01/03/22 17:09 [place]IN (Rec: 01/03/22 17:55 AUSTIN [id number]) Nutrition Notes Need for Assessment generated from: 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 Current Diet NPO (since 01/02 22:54). Labs/Tests 01/03: Na 146, K 3.0, CO2 17, Crea 2.5, Glu 149. Pertinent Medications 01/03: Nutritionally unremarkable. Height 6 ft Weight 86.7 kg [place] Body Weight (kg) 80.90 BMI 25.9 Intake Prior to Admission Good Weight change and time frame Pt states being unsure if loss body weight [employer]. Weight Status Appropriate Subjective/Other Information RD consult for skin risk, risk of malnutrition, nutrition education assessments, and write/manage TF. Pt currently on NPO. I will prescribe and order TF to provide at least 75% of Pt' s energy/protein needs during LOS. Pt is on Mechanical Ventilation, O2 saturation @ 100%, according to Physical Assessment History notes. Pt has missing teeth, according to Physical Assessment History notes. Pt shows no signs of concern foir skin risk at the time, according to Physical Assessment History notes. Pt shows no signs of concern for risk of malnutrition at the time, according to Physical Assessment History notes. Pt still in critical condition , not a candidate for Nutrition Education at the time, will assess feasibility on F/U. Percent of energy/protein needs met: Pt currently on NPO. Burn Absent Trauma Absent GI Symptoms None Food Allergy No Skin Integrity/Comment Assessment WNL. 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 As Evidenced by Signs and Symptoms Pt currently on NPO. Is patient on ventilator? Yes Is Patient Ambulatory and/or Out of Bed No REE-([facility]-confined to bed) 2038.100 Kcal/Kg value to use for calculation 26 Approximate Energy Requirements Using 2254 kcal/Kg Calculation Used for Recommendations 65-70% [id number] Additional Notes Protein: 0.8-1.2 g/Kg ABW; 70- 104 g/day. Fluids: 1 ml/Kcal, or as per MD. Nutrition Intervention Nutrition Support: Start TF=Nepro w/CARBSTEADY @ 35 ml/hr. Flush: 250 ml water Q 4 hr, or as per MD. Kcal 1,500 Protein (gm) 68 Carbohydrates (gm) 134 Fat (gm) 80 Fluid (mL) 606 Fiber (gm) 11 % RDI: 67% Kcal; 96% AA. Goal #1 Provide at least 75% of energy /protein needs through Enteral Feeding during LOS. Follow-Up By: 01/05/22 Additional Comments Start monitoring TF tolerance and BM.
[2022-01-03] MEDS: CEFEPIME/NS 2 GM/100 ML 2 GM/100 ML BAG IV SCH (16:43)
[2022-01-03 18:11] LABS: Albumin 2.8 g/dL (3.9-5); Calcium 7.6 mg/dL (8.4-10.2)
[2022-01-03] MEDS ORDERED: LACTATED RINGERS 1,000 ML IV ONE (18:15)
[2022-01-03 18:33] LABS: ABG Base Excess -6.4 mmol/L (-2.0-3.0); ABG HCO3 21.1 mmol/L (20.0-26.0); ABG Methemoglobin 0.6 % (0.0-1.5); ABG Oxygen Saturation 97.9 % (95.0-99.0); ABG PCO2 49.6 mm Hg; ABG PH 7.246 pH Units (7.350-7.450); ABG PO2 118.9 mm Hg (80.0-90.0)
[2022-01-03] MEDS: AMIODARONE 900 MG in DEXTROSE 5% IN WATER 482 ML IV SCH (21:49)
--- NOTE | 2022-01-04 00:09 | Consultation ---
History of Present Illness Consult date: 01/03/22 Reason for Consult: Anoxic Brain Injury Chief complaint: s/p cardiac arrest History of present illness: 66 yo male who presents with sudden cardiac arrest and requiring cpr for a prolonged period of time and noted with vfib in the ED. Noted with acute encephalopathy. Son and nephew at bedside. Patient has not been on sedation for >24 hours. Past History Past Medical History: No medical history Past Surgical History: No surgical history Social history: no significant social history Family history: no significant family history Medications and Allergies Allergies Allergy/AdvReac Type Severity Reaction Status Date / Time Unable to Assess Allergy Unverified 01/02/22 20:17 Active Meds: Active Medications Acetaminophen (Acetaminophen 650 Mg Rect Supp) 650 mg CO Q6H PRN PRN Reason: Pain MILD(1-3)/Fever >100.5/CANTRELL Famotidine (Famotidine 20 Mg/2 Ml Inj) 10 mg IV BID SALMA Last Admin: 01/03/22 21:29 Dose: 10 mg NORepinephrine/NS 8 MG-250 ML (Norepinephrine/Ns 8 Mg-250 Ml (Double Conc)) 8 mg in 250 mls @ 3.75 mls/hr IV TITRATE SALMA; Protocol Last Titration: 01/03/22 21:45 Dose: 14 mcg/min, 26.25 mls/hr Amiodarone HCl 900 mg/ (Dextrose) 500 mls @ 33.333 mls/hr IV DIRECT SALMA; Protocol Last Admin: 01/03/22 21:49 Dose: 0.5 mg/min, 16.667 mls/hr Vasopressin 20 unit/ Sodium (Chloride) 101 mls @ 9.09 mls/hr IV TITR SALMA; Protocol Last Admin: 01/03/22 21:50 Dose: 0.03 units/min, 9.09 mls/hr Epinephrine 8 mg/ Sodium (Chloride) 250 mls @ 3.75 mls/hr IV TITR SALMA; Protocol Last Titration: 01/03/22 21:54 Dose: 9 mcg/min, 16.875 mls/hr Sodium Bicarbonate 150 meq/ (Dextrose) 1,000 mls @ 150 mls/hr IV DIRECT SALMA Last Admin: 01/03/22 20:05 Dose: 150 mls/hr Heparin Sodium/Sodium Chloride (Heparin/ 0.45% Nacl-25,000 Unit/500 Ml) 25,000 unit in 500 mls @ 20 mls/hr IV TITRATE SALMA; Protocol Last Titration: 01/03/22 19:40 Dose: 1,100 units/hr, 22 mls/hr Cefepime HCl (Cefepime/Ns 2 Gm/100 Ml) 2 gm in 100 mls @ 200 mls/hr IV Q12H SALMA; Protocol Last Admin: 01/03/22 16:43 Dose: 200 mls/hr Magnesium Hydroxide (Magnesium Hydroxide (Mom) Oral Liqd Udc) 30 ml PO Q4H PRN PRN Reason: Constipation Morphine Sulfate (Morphine 2 Mg/1 Ml Inj) 2 mg IV Q4H PRN PRN Reason: Pain, Moderate (4-6) Morphine Sulfate (Morphine 4 Mg/1 Ml Inj) 4 mg IV Q4H PRN PRN Reason: Pain , Severe (7-10) Ondansetron HCl (Ondansetron 4 Mg/2 Ml Inj) 4 mg IV Q8H PRN PRN Reason: Nausea And Vomiting Sodium Chloride (Sodium Chloride 0.9% 10 Ml Flush Syringe) 10 ml IV BID SALMA Last Admin: 01/03/22 21:29 Dose: 10 ml Sodium Chloride (Sodium Chloride 0.9% 10 Ml Flush Syringe) 10 ml IV PRN PRN PRN Reason: LINE FLUSH Review of Systems ROS unobtainable: due to mental status Physical Examination - Vital Signs Vital Signs: Vital Signs Pulse Ox 88 01/02/22 20:08 - Physical Exam Narrative exam: Gen: nad, well-nourished, intubated; Head: normocephalic; Eyes: no gaze deviation; no ptosis appreciated; ENT: +ETT; CVS: warm and well-perfused; Pulm: no respiratory distress; GI: appears non-distended; Ext: no cyanosis appreciated at distal extremities; Skin: no acute rash or hives appreciated at distal extremities; Heme: no pathologic ecchymosis appreciated at distal extremities; Neuro: comatose, intubated, pt is breathing over the vent; CN 2 - non-reactive pupils, CN 3, 4, 6 - oculocephalic absent, CN 5/7 - corneal reflex absent, CN 9/ 10 - cough reflex absent, CN 11/12 - pt cannot cooperate secondary to LOC; Motor/Sensory - 0/5 at all exts to tactile stimuli; Cerebellar/Gait - pt cannot cooperate secondary to LOC; Results - Laboratory Findings CBC and BMP: 01/04/22 04:45 01/03/22 Unknown Abnormal Lab Findings: Abnormal Labs 01/02/22 01/02/22 01/02/22 20:00 20:23 20:23 WBC 14.7 H RDW 16.3 H Seg Neuts % (Manual) 36.0 L Lymphocytes % (Manual) 61.0 H Seg Neutrophils # Man Lymphocytes # (Manual) 9.0 H PT 15.2 H INR APTT Heparin Anti-Xa Level ABG pH 7.049 L* ABG pO2 90.3 H ABG HCO3 ABG O2 Saturation 93.2 L ABG Base Excess -10.6 L ABG Hemoglobin 13.1 L Oxyhemoglobin 88.4 L Sodium Potassium Chloride Carbon Dioxide BUN Creatinine Glucose Lactic Acid Calcium AST ALT Ammonia Total Creatine Kinase Troponin T Total Protein Albumin LDL Cholesterol Direct Urine WBC (Auto) Urine Creatinine Salicylates Acetaminophen 01/02/22 01/02/22 01/02/22 20:23 20:23 20:23 WBC RDW Seg Neuts % (Manual) Lymphocytes % (Manual) Seg Neutrophils # Man Lymphocytes # (Manual) PT INR APTT Heparin Anti-Xa Level ABG pH ABG pO2 ABG HCO3 ABG O2 Saturation ABG Base Excess ABG Hemoglobin Oxyhemoglobin Sodium Potassium Chloride Carbon Dioxide 21 L BUN Creatinine 1.4 H Glucose 260 H Lactic Acid 10.00 H* Calcium AST 115 H ALT 74 H Ammonia Total Creatine Kinase 668 H Troponin T 0.200 H* Total Protein 5.7 L Albumin 3.7 L LDL Cholesterol Direct 136 H Urine WBC (Auto) Urine Creatinine Salicylates < 0.3 L Acetaminophen 01/02/22 01/02/22 01/02/22 20:23 20:23 20:52 WBC RDW Seg Neuts % (Manual) Lymphocytes % (Manual) Seg Neutrophils # Man Lymphocytes # (Manual) PT INR APTT Heparin Anti-Xa Level ABG pH ABG pO2 ABG HCO3 ABG O2 Saturation ABG Base Excess ABG Hemoglobin Oxyhemoglobin Sodium Potassium Chloride Carbon Dioxide BUN Creatinine Glucose Lactic Acid Calcium AST ALT Ammonia 79.0 H Total Creatine Kinase Troponin T Total Protein Albumin LDL Cholesterol Direct Urine WBC (Auto) 40.0 H Urine Creatinine Salicylates Acetaminophen 5.0 L 01/02/22 01/03/22 01/03/22 20:52 00:50 04:00 WBC 2.1 L RDW 16.6 H Seg Neuts % (Manual) 13.0 L Lymphocytes % (Manual) 67.0 H Seg Neutrophils # Man 0.3 L Lymphocytes # (Manual) PT INR APTT Heparin Anti-Xa Level ABG pH 7.306 L ABG pO2 68.8 L ABG HCO3 19.4 L ABG O2 Saturation ABG Base Excess -6.4 L ABG Hemoglobin Oxyhemoglobin 92.8 L Sodium Potassium Chloride Carbon Dioxide BUN Creatinine Glucose Lactic Acid 6.80 H* Calcium AST ALT Ammonia Total Creatine Kinase Troponin T Total Protein Albumin LDL Cholesterol Direct Urine WBC (Auto) Urine Creatinine Salicylates Acetaminophen 01/03/22 01/03/22 01/03/22 04:00 05:30 05:45 WBC RDW Seg Neuts % (Manual) Lymphocytes % (Manual) Seg Neutrophils # Man Lymphocytes # (Manual) PT INR APTT Heparin Anti-Xa Level ABG pH 7.096 L* ABG pO2 44.6 L ABG HCO3 16.8 L ABG O2 Saturation 68.0 L ABG Base Excess -13.3 L ABG Hemoglobin Oxyhemoglobin 66.6 L Sodium 146 H Potassium 3.0 L Chloride Carbon Dioxide 17 L BUN Creatinine 2.5 H D Glucose 149 H Lactic Acid 11.10 H* Calcium AST ALT Ammonia Total Creatine Kinase Troponin T Total Protein Albumin LDL Cholesterol Direct Urine WBC (Auto) Urine Creatinine Salicylates Acetaminophen 01/03/22 01/03/22 01/03/22 08:03 08:03 09:10 WBC RDW Seg Neuts % (Manual) Lymphocytes % (Manual) Seg Neutrophils # Man Lymphocytes # (Manual) PT 22.7 H INR 1.76 H APTT 39.6 H Heparin Anti-Xa Level ABG pH 7.154 L* ABG pO2 47.8 L ABG HCO3 17.5 L ABG O2 Saturation 79.4 L ABG Base Excess -11.7 L ABG Hemoglobin Oxyhemoglobin 78.0 L Sodium Potassium Chloride Carbon Dioxide BUN Creatinine Glucose Lactic Acid 7.90 H* Calcium AST ALT Ammonia Total Creatine Kinase Troponin T Total Protein Albumin LDL Cholesterol Direct Urine WBC (Auto) Urine Creatinine Salicylates Acetaminophen 01/03/22 01/03/22 01/03/22 11:25 16:51 18:20 WBC RDW Seg Neuts % (Manual) Lymphocytes % (Manual) Seg Neutrophils # Man Lymphocytes # (Manual) PT INR APTT 99.5 H* Heparin Anti-Xa Level ABG pH 7.198 L* 7.246 L ABG pO2 173.7 H 118.9 H ABG HCO3 18.6 L ABG O2 Saturation ABG Base Excess -9.4 L -6.4 L ABG Hemoglobin 12.7 L 13.1 L Oxyhemoglobin Sodium Potassium Chloride Carbon Dioxide BUN Creatinine Glucose Lactic Acid Calcium AST ALT Ammonia Total Creatine Kinase Troponin T Total Protein Albumin LDL Cholesterol Direct Urine WBC (Auto) Urine Creatinine Salicylates Acetaminophen 01/03/22 01/03/22 01/03/22 19:00 20:50 Unknown WBC RDW Seg Neuts % (Manual) Lymphocytes % (Manual) Seg Neutrophils # Man Lymphocytes # (Manual) PT INR APTT Heparin Anti-Xa Level 0.25 L ABG pH ABG pO2 ABG HCO3 ABG O2 Saturation ABG Base Excess ABG Hemoglobin Oxyhemoglobin Sodium 146 H Potassium Chloride 108.4 H Carbon Dioxide BUN 28 H Creatinine 3.1 H Glucose Lactic Acid Calcium 7.6 L AST 738 H ALT 488 H Ammonia Total Creatine Kinase Troponin T Total Protein 4.5 L D Albumin 2.8 L LDL Cholesterol Direct Urine WBC (Auto) Urine Creatinine 70.0 H Salicylates Acetaminophen Assessment and Plan 66 yo male who presents with sudden cardiac arrest and requiring cpr for a prolonged period of time and noted with vfib in the ED. Noted with acute encephalopathy. 1. Anoxic Gonzalo Injury - nchct with diffuse bilateral cerebral edema; poor prognosis discussed with son at bedside; he notes they are awaiting one more child to arrive prior to withdrawal of care. 2. Acute Metabolic Encephalopathy - in the setting of multiple metabolic derangements including pH 7.1. 3. Cardiac Arrest - per primary team, however futile care based on goals of care / quality of life discussion with son. 4. No further acute neurologic workup indicated. Rasta Almeida MD Neurology [id number]
[2022-01-04] MEDS: NORepinephrine/NS 8 MG-250 ML 8 MG/250 ML INFUS..BTL IV SCH (01:57)
--- NOTE | 2022-01-04 03:19 | XRay Report ---
CHEST 1 VIEW INDICATION / CLINICAL INFORMATION: f/u chest tube placement. COMPARISON: Chest x-ray 01/03/2022 FINDINGS: SUPPORT DEVICES: Stable, satisfactory device positioning. HEART / MEDIASTINUM: Stable interval appearance of the cardiomediastinal silhouette. LUNGS / PLEURA: Interval partial clearing of bilateral perihilar airspace opacities. No significant r ight pneumothorax. BONES: No significant osseous abnormality. ADDITIONAL FINDINGS: No significant additional findings. IMPRESSION: 1. Interval partial clearing of bilateral lung opacities more noticeably on the right. 2. Right-sided chest tube is stable, no significant right pneumothorax. Remaining tubes and lines dem onstrate no change and are satisfactory in position. Signer Name: José Miguel Lu II, MD Signed: 01/04/2022 3:14 AM Workstation Name: [id number]
[2022-01-04] MEDS: SODIUM BICARBONATE 150 MEQ in DEXTROSE 5% IN WATER 1,000 ML IV SCH ×2 (04:04→11:46)
[2022-01-04] MEDS: CEFEPIME/NS 2 GM/100 ML 2 GM/100 ML BAG IV SCH (04:05)
[2022-01-04 04:52] LABS: Hematocrit 34.9 % (35.5-45.6); Hemoglobin 11.6 gm/dl (11.8-15.2); Mean Corpuscular HGB Conc 33 % (32-34); Mean Corpuscular Volume 90 fl (84-94); Platelet Count 151 K/mm3 (140-440); Red Blood Count 3.87 M/mm3 (3.65-5.03); Red Cell Distribution Width 15.6 % (13.2-15.2)
[2022-01-04] MEDS: EPINEPHrine 1 MG/1 ML 8 MG in SODIUM CHLORIDE 0.9% 250ML 242 ML IV SCH (06:25)
[2022-01-04] MEDS: VASOPRESSIN 20 UNIT in SODIUM CHLORIDE 0.9% 100 ML IV SCH (06:26)
[2022-01-04 08:02] LABS: Calcium 6.9 mg/dL (8.4-10.2)
[2022-01-04 08:26] LABS: ABG Base Excess -2.2 mmol/L (-2.0-3.0); ABG HCO3 23.5 mmol/L (20.0-26.0); ABG Methemoglobin 0.5 % (0.0-1.5); ABG Oxygen Saturation 97.1 % (95.0-99.0); ABG PCO2 44.4 mm Hg; ABG PH 7.342 pH Units (7.350-7.450); ABG PO2 91.2 mm Hg (80.0-90.0)
[2022-01-04] MEDS ORDERED: MAGNESIUM SULFATE 2 GM/50 ML BAG IV SCH (09:15)
[2022-01-04] MEDS: FAMOTIDINE 20 MG/2 ML INJ IV SCH (09:18)
--- NOTE | 2022-01-04 10:02 | Electrocardiograph Report ---
[facility] Test Date: 2022-01-03 Test Time: 07:14:00 Pat Name: SHYANNE KAYE Department: Room: A258 1 Gender: M Manager Hi: DERICK : 1955 Requested By: LATASHA BOWMAN Order Number: [id number] Reading MD: Claus Zelaya Measurements Intervals [place] Rate: 111 P: 84 WV: 160 QRS: 67 QRSD: 133 T: 83 QT: 488 QTc: 663 Interpretive Statements Sinus tachycardia Right bundle branch block Inferior infarct, acute Compared to ECG 01/02/2022 20:34:00 Atrial fibrillation no longer present Ventricular premature complex(es) no longer present ST (T wave) deviation no longer present Myocardial infarct finding still present Electronically Signed On 01-04-2022 10:02:19 EDT by Claus Zelaya
--- NOTE | 2022-01-04 10:21 | Progress Note ---
Assessment and Plan Patient is 66-year-old male with unknown past medical history who is brought to the ED yesterday via EMS due to cardiopulmonary arrest with unknown downtime. S/p cardiopulmonary arrest-requiring multiple pressors Acute respiratory failure Pneumothorax s/p chest tube x2-pulmonology following Anoxic brain injury?-Neurology following NSTEMI UTI Echo 01/03/2022-technically very difficult and limited study due to body habitus and poor endocardial definition. Grossly severe LV dysfunction with estimated EF of 20 to 25%. No pericardial effusion Plan: EKG shows sinus tach with RBBB no acute ischemic changes. Troponins noted to be elevated in setting of cardiopulmonary arrest Patient currently requiring multiple pressors. Wean pressors as tolerated Patient currently absent reflexes Echo results noted above No events on monitor will stop IV amiodarone Overall poor prognosis Patient in conjunction with Dr. Zelaya who agrees with this plan of care 30 minutes of critical care time spent in care and coordination of patient - Patient Problems (1) Cardiac arrest Current Visit: Yes Status: Acute (2) Hypotension Current Visit: Yes Status: Acute (3) Unresponsive Current Visit: Yes Status: Acute (4) Elevated troponin Current Visit: Yes Status: Acute (5) UTI (urinary tract infection) Current Visit: Yes Status: Acute (6) Pneumothorax Current Visit: Yes Status: Acute Subjective Date of service: 01/04/22 Principal diagnosis: cardiopulmonary arrest Interval history: Patient remains nonresponsive and on ventilator currently requiring multiple pressors. Sinus 80s on monitor Objective Vital Signs Temp Pulse Pulse Resp BP Pulse Ox 01/04/22 09:40 95.9 F L 01/04/22 09:30 84 30 H 104/68 98 01/04/22 09:15 82 30 H 88/70 98 01/04/22 09:01 83 30 H 88/70 97 01/04/22 08:45 83 30 H 88/70 97 01/04/22 08:30 83 30 H 84/62 97 01/04/22 08:15 83 84 30 H 99/59 97 01/04/22 08:00 83 30 H 89/63 96 01/04/22 07:45 84 30 H 87/65 97 01/04/22 07:38 97.5 F L 01/04/22 07:31 84 30 H 86/62 97 01/04/22 07:15 83 30 H 105/55 97 01/04/22 07:06 86 30 H 87/69 97 01/04/22 07:00 84 30 H 87/64 97 01/04/22 06:45 85 30 H 86/63 96 01/04/22 06:31 84 30 H 87/69 98 01/04/22 06:15 87 30 H 87/69 97 01/04/22 06:01 86 30 H 87/69 97 01/04/22 05:45 86 30 H 87/69 97 01/04/22 05:30 86 30 H 87/69 97 01/04/22 05:15 86 30 H 90/57 96 01/04/22 05:00 86 30 H 82/58 97 01/04/22 04:45 83 30 H 72/49 97 01/04/22 04:30 86 30 H 88/62 97 01/04/22 04:15 87 30 H 83/63 97 01/04/22 04:02 86 85/59 97 01/04/22 04:00 97.9 F 87 87 30 H 85/59 97 01/04/22 03:45 88 30 H 92/64 97 01/04/22 03:30 88 30 H 83/56 96 01/04/22 03:15 89 30 H 82/58 96 01/04/22 03:00 91 H 30 H 89/66 98 01/04/22 02:45 94 H 30 H 95/68 98 01/04/22 02:30 93 H 30 H 95/68 98 01/04/22 02:15 93 H 30 H 87/62 98 01/04/22 02:01 94 H 30 H 91/61 98 01/04/22 01:45 92 H 30 H 91/61 98 01/04/22 01:30 93 H 30 H 85/60 98 01/04/22 01:15 97 H 30 H 95/71 98 01/04/22 01:00 96 H 30 H 91/70 97 01/04/22 00:45 96 H 30 H 91/67 98 01/04/22 00:30 97 H 30 H 88/63 97 01/04/22 00:15 96 H 30 H 105/61 97 01/04/22 00:00 97.6 F 97 H 97 H 30 H 90/68 97 01/03/22 23:45 97 H 30 H 93/63 97 01/03/22 23:31 97 H 30 H 93/54 96 01/03/22 23:30 97 H 30 H 93/54 97 01/03/22 23:28 96 H 93/54 96 01/03/22 23:15 97 H 30 H 86/64 97 01/03/22 23:00 97 H 30 H 84/58 98 01/03/22 22:45 99 H 30 H 85/62 98 01/03/22 22:30 98 H 30 H 83/58 97 01/03/22 22:15 99 H 30 H 79/53 98 01/03/22 22:00 100 H 30 H 71/51 97 01/03/22 21:41 89 30 H 44/17 94 01/03/22 21:31 82 30 H 45/23 80 L 01/03/22 21:21 81 30 H 58/38 87 01/03/22 21:11 82 30 H 75/43 89 01/03/22 21:00 79 30 H 75/43 93 01/03/22 20:51 83 30 H 74/41 92 01/03/22 20:41 85 30 H 66/39 95 01/03/22 20:30 87 30 H 70/38 96 01/03/22 20:25 87 30 H 65/39 97 01/03/22 20:21 88 30 H 96/78 97 01/03/22 20:15 90 30 H 96/78 96 01/03/22 20:11 92 H 30 H 96/78 97 01/03/22 20:01 88 30 H 80/56 98 01/03/22 20:00 98.8 F 88 88 30 H 98 01/03/22 19:51 94 H 30 H 96/78 100 01/03/22 19:41 94 H 18 100/58 99 01/03/22 19:30 91 H 20 92/74 100 01/03/22 19:21 94 H 37 H 89/68 100 01/03/22 19:17 93 H 92/74 99 01/03/22 19:11 95 H 26 H 87/58 100 01/03/22 19:05 96 H 23 87/58 100 01/03/22 19:01 96 H 26 H 87/58 100 01/03/22 18:55 96 H 26 H 100/58 99 01/03/22 18:51 97 H 26 H 100/58 99 01/03/22 18:45 97 H 27 H 100/58 99 01/03/22 18:41 97 H 35 H 81/61 98 01/03/22 18:35 96 H 33 H 87/56 98 01/03/22 18:31 96 H 27 H 87/56 97 01/03/22 18:30 100 01/03/22 18:25 95 H 37 H 90/56 97 01/03/22 18:21 94 H 33 H 79/58 97 01/03/22 18:15 96 H 37 H 79/58 100 01/03/22 18:10 97 H 35 H 79/58 98 01/03/22 18:05 96 H 35 H 70/49 99 01/03/22 18:01 96 H 36 H 70/49 99 01/03/22 17:55 96 H 36 H 102/45 99 01/03/22 17:51 97 H 37 H 102/45 99 01/03/22 17:45 97 H 36 H 128/42 01/03/22 17:41 98 H 34 H 128/42 98 01/03/22 17:35 99 H 37 H 128/42 99 01/03/22 17:31 97 H 34 H 128/42 99 01/03/22 17:25 98 H 36 H 102/68 99 01/03/22 17:21 98 H 36 H 102/68 99 01/03/22 17:15 98 H 37 H 102/68 98 01/03/22 17:11 97 H 37 H 94/62 98 01/03/22 17:05 96 H 36 H 52/24 98 01/03/22 17:01 96 H 37 H 52/24 98 01/03/22 16:55 96 H 28 H 84/44 98 01/03/22 16:51 95 H 33 H 84/44 97 01/03/22 16:45 96 H 35 H 80/47 97 01/03/22 16:41 96 H 36 H 80/47 97 01/03/22 16:35 96 H 34 H 80/47 97 01/03/22 16:31 96 H 18 80/47 98 01/03/22 16:25 97 H 28 H 80/47 99 01/03/22 16:21 97 H 35 H 150/115 97 01/03/22 16:15 97 H 24 150/115 97 01/03/22 16:11 98 H 18 92/65 97 01/03/22 16:05 98 H 25 H 92/65 100 01/03/22 16:01 99 H 22 92/65 100 01/03/22 16:00 96 H 32 H 100 01/03/22 15:55 98 H 25 H 92/65 100 01/03/22 15:51 98 H 29 H 92/65 100 01/03/22 15:45 98 H 23 92/65 01/03/22 15:42 98 H 92/65 99 01/03/22 15:40 99 H 22 78/53 100 01/03/22 15:39 99.3 F 01/03/22 15:35 98 H 26 H 92/65 100 01/03/22 15:31 98 H 20 92/65 100 01/03/22 15:25 99 H 20 78/53 99 01/03/22 15:21 98 H 20 78/53 100 01/03/22 15:15 98 H 23 93/54 98 01/03/22 15:11 98 H 17 93/54 100 01/03/22 15:05 97 H 16 93/54 100 01/03/22 15:01 97 H 17 93/54 100 01/03/22 14:55 98 H 18 92/69 98 01/03/22 14:51 97 H 18 92/69 01/03/22 14:45 97 H 16 92/69 76 L 01/03/22 14:41 97 H 16 90/67 01/03/22 14:35 98 H 16 90/67 96 01/03/22 14:31 99 H 20 90/67 100 01/03/22 14:25 99 H 19 115/62 100 01/03/22 14:21 100 H 20 115/62 100 01/03/22 14:15 99 H 16 115/62 100 01/03/22 14:11 99 H 16 96/63 100 01/03/22 14:05 100 H 17 96/63 100 01/03/22 14:00 99 H 17 96/63 100 01/03/22 13:55 100 H 21 95/75 98 01/03/22 13:51 100 H 21 95/75 98 01/03/22 13:45 99 H 19 95/75 87 06/13/22 13:41 100 H 21 94/57 100 01/03/22 13:36 99 F 01/03/22 13:35 100 H 20 94/57 100 01/03/22 13:31 100 H 23 94/57 99 01/03/22 13:25 100 H 16 84/54 100 01/03/22 13:21 100 H 17 84/54 01/03/22 13:15 101 H 17 100/58 01/03/22 13:10 101 H 15 100/58 100 01/03/22 13:05 102 H 16 88/62 01/03/22 13:01 102 H 19 88/62 100 01/03/22 12:55 103 H 20 97/70 99 01/03/22 12:50 102 H 23 88/70 99 01/03/22 12:45 102 H 20 108/70 01/03/22 12:41 102 H 18 102/82 92 01/03/22 12:35 102 H 22 99/71 01/03/22 12:31 103 H 20 99/71 98 01/03/22 12:25 102 H 27 H 99/71 01/03/22 12:21 102 H 15 96/56 99 01/03/22 12:15 102 H 29 H 96/56 99 01/03/22 12:10 103 H 37 H 98/62 99 01/03/22 12:05 103 H 31 H 84/61 98 01/03/22 12:00 103 H 98 H 33 H 93/69 100 01/03/22 11:55 102 H 28 H 98/61 99 01/03/22 11:51 103 H 31 H 101/63 99 01/03/22 11:45 103 H 27 H 97/66 93 01/03/22 11:40 103 H 33 H 104/68 87 01/03/22 11:35 103 H 38 H 93/68 100 01/03/22 11:30 103 H 36 H 102/58 99 01/03/22 11:25 103 H 33 H 100/55 81 L 01/03/22 11:20 102 H 38 H 90/66 99 01/03/22 11:17 104 H 97/69 98 01/03/22 11:15 102 H 33 H 93/70 84 01/03/22 11:10 103 H 34 H 94/68 87 06/13/22 11:05 103 H 34 H 100/73 90 01/03/22 11:01 103 H 34 H 97/69 97 01/03/22 10:55 104 H 30 H 97/69 99 01/03/22 10:50 104 H 24 97/70 98 01/03/22 10:45 104 H 29 H 92/70 99 01/03/22 10:40 104 H 30 H 100/68 99 01/03/22 10:35 105 H 32 H 108/76 99 01/03/22 10:30 104 H 33 H 90/70 100 01/03/22 10:25 105 H 22 94/68 98 01/03/22 10:20 106 H 28 H 103/71 98 - Physical Examination General: Other (Remains intubated) HEENT: Positive: Normocephaly Neck: Positive: trachea midline Cardiac: Positive: Reg Rate and Rhythm Lungs: Positive: Ventilated Respirations Neuro: Positive: Other (Unable to assess) Abdomen: Positive: Soft Skin: Negative: Rash, Suspicious Lesions, Ulceration Extremities: Present: warm. Absent: edema - Labs and Meds Cardiac Enzymes 01/03/22 Range/Units Unknown AST 738 H (5-40) units/L Coagulation 01/03/22 01/03/22 Range/Units 08:03 16:51 PT 22.7 H (12.2-14.9) Sec. INR 1.76 H (0.87-1.13) APTT 39.6 H 99.5 H* (24.2-36.6) Sec. CBC 01/03/22 01/04/22 Range/Units 08:03 04:45 WBC 4.7 (4.5-11.0) K/mm3 RBC 3.87 (3.65-5.03) M/mm3 Hgb 13.7 11.6 L (11.8-15.2) gm/dl Hct 42.0 34.9 L D (35.5-45.6) % Plt Count 202 151 (140-440) K/mm3 Comprehensive Metabolic Panel 01/03/22 01/04/22 Range/Units Unknown Unknown Sodium 146 H 142 (137-145) mmol/L Potassium 3.9 D 3.2 L (3.6-5.0) mmol/L Chloride 108.4 H 101.4 (98-107) mmol/L Carbon Dioxide 24 D 24 (22-30) mmol/L BUN 28 H 35 H (9-20) mg/dL Creatinine 3.1 H 4.0 H (0.8-1.3) mg/dL Glucose 92 206 H (75-100) mg/dL Calcium 7.6 L 6.9 L (8.4-10.2) mg/dL AST 738 H (5-40) units/L ALT 488 H (7-56) units/L Alkaline Phosphatase 71 (35-129) units/L Total Protein 4.5 L D (6.3-8.2) g/dL Albumin 2.8 L (3.9-5) g/dL - Imaging and Cardiology Echo: report reviewed - Telemetry EKG Rhythm: Sinus Rhythm - EKG Sinus rhythms and dysrhythmias: sinus tachycardia AV and intraventricular conduction: right bundle branch block
[2022-01-04] MEDS: HEPARIN/ 0.45% NACL DRIP 25,000 UNIT/500 ML BAG IV SCH (10:47)
--- NOTE | 2022-01-04 13:44 | Progress Note ---
<VENICE MOSER - Last Filed: 01/04/22 14:08> Assessment and Plan Assessment and plan: This is a 66 year old male with no medical history admitted s/p cardiac arrest x 2, acute hypoxic respiratory failure, lactic acidosis, pneumothorax with possible bilateral cerebral edema and/or diffuse anoxic brain injury Neuro: Possible anoxic brain injury, acute metabolic encephalopathy -Maintain sleep-wake cycle -aspiration/seizure precautions -As needed analgesia -CT head shows findings worrisome for bilateral cerebral edema and/or diffuse anoxic brain injury -Neurology consulted, appreciate recommendations Cardiac: s/p cardiopulmonary arrest x2 with ROSC, V. fib, NSTEMI -Cardiology consulted, appreciate recommendations -Blood pressure monitoring per protocol -Vasopressor support with Levophed, vasopressin, Arie-Synephrine -MAP goal greater than 65 -s/p Amio gtt -Echocardiogram read: technically very difficult and limited study due to body habitus and poor endocardial definition. Grossly severe LV dysfunction with estimated EF of 20 to 25%. No pericardial effusion -Heparin gtt Respiratory: Acute hypoxemic hypercarbic respiratory failure, right pneumothorax -[facility] consulted, appreciate recommendations -Intubated on 01/02 with a 7.50 ETT at 24 the lips -A.m. vent settings: AC/PRVC rate 30, tidal volume 450, FiO2 60%, PEEP 6 -See RT notes for titration -A.m. ABG and CXR noted -Right chest tube placed in the ED 01/02 -Second right chest tube placed in the ICU 01/02 -VAP bundle -SPO2 monitoring GI: Transaminitis likely secondary to cardiac arrest -PPI -Wean vasopressor requirement support initiation of tube feedings -Nutrition consult for tube feedings -TF trickle feeds -BR: senakot s -Trend LFTs : Hypokalemia, metabolic acidosis, acute kidney injury likely secondary to v asomotor nephropathy in setting of cardiac arrest, hypo ischemia, hypophosphatemia -Nephrology consulted, appreciate recommendations -Strict intake and output -Renally dose medications -Avoid nephrotoxic medications -FeNa 2.76% -Sodium bicarb gtt -Trend BMP ID: Sepsis (POA), GPC bacteremia -Presented with hypothermia, leukocytosis, acute kidney injury -Infectious disease consulted, appreciate recommendation -Antibiotic therapy with cefepime, vancomycin x1 -f/u blood culture -01/02 gram-positive cocci 1/2 -Monitor WBC and temperature curve Endo: NAD -Avoid hypoglycemia -SSI -Accu-Cheks q. 6hr Heme: Leukopenia -Trend CBC -Transfuse hemoglobin less than 7 -SCDs to BLE while in bed The high probability of a clinically significant, sudden or life threatening deterioration of the [multiple] system(s) required my full and direct attention, intervention and personal management. The aggregate critical care time was [60] minutes. This time is in addition to time spent performing reported procedures but includes the following: [x] Data Review and interpretation [x] Patient assessment and monitoring of vital signs [x] Documentation [x] Medication orders and management Disposition Plan: icu Total Time Spent with Patient (Minutes): 60 History Interval history: This is a 66-year-old male with a medical history over the to the emergency department on 01/02 and cardiopulmonary arrest via EMS. Patient was said to be at home watching TV when he suddenly went to cardiac arrest and EMS was immediately called and patient was transferred to the emergency department. CPR was conducted in route. Upon arrival to the emergency department patient was intubated and received epinephrine and sodium bicarbonate with ROSC. During the course of resuscitation patient was noted to be in V. tach and required IV amiodarone and subsequently started on amiodarone drip. 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 Work-up in the emergency department revealed leukocytosis, lactic acidosis, elevated troponins, UTI noted on UA. CXR showed small right apical pneumothorax and CT head showed concern for bilateral cerebral edema and/or diffuse anoxic brain injury. In the emergency department patient was had a chest tube placed by ED physician and started on IV fluids, pressors and antibiotics. Patient was admitted to the hospitalist service with consults to [facility], cardiology and neurology s/p cardiac arrest, Hospital course to date: 01/03: Patient had another cardiac arrest in the ICU with ROSC, CXR showed per sistent right pleural pneumothorax and patient received another chest tube this morning. A-line was placed in the right femoral. This morning patient was on Levophed and vasopressin. Patient was started on a bicarbonate drip 01/04: remains on vasopressors, weaning vent as tolerated. trickle feeds, no urine output. No reflexs noted. Hospitalist Physical - Constitutional Vitals: Temp Pulse Resp BP Pulse Ox 98.5 F 80 30 H 106/78 97 01/04/22 11:47 01/04/22 12:09 01/04/22 12:09 01/04/22 12:00 01/04/22 12:09 General appearance: Present: no acute distress, other (Intubated) - EENT Eyes: Absent: PERRL, EOM intact ENT: dentition normal - Neck Neck: Absent: masses or JVD, cervical LAD - Respiratory Respiratory effort: normal Respiratory: bilateral: CTA, diminished - Cardiovascular Rhythm: regular Heart Sounds: Present: S1 & S2. Absent: systolic murmur, diastolic murmur - Extremities Extremities: no ischemia, pulses intact, pulses symmetrical, No edema, normal temperature, normal color Peripheral Pulses: within normal limits - Abdominal General gastrointestinal: soft, non-tender, hypoactive bowel sounds - Integumentary Integumentary: Present: warm, dry - Psychiatric Psychiatric: other - Neurologic Neurologic: no CNII-XII intact, no moves all extremities, other (Pupillary reflexes are intact, no cough/gag reflex, no response to painful stimuli) - Allied Health Allied health notes reviewed: nursing, RT, social work HEART Score - HEART Score Troponin: Troponin T 0.200 ng/mL (0.00-0.029) H* 01/02/22 20:23 Results - Labs CBC & Chem 7: 01/04/22 04:45 01/04/22 Unknown Labs: Laboratory Last Values WBC 4.7 K/mm3 (4.5-11.0) 01/04/22 04:45 RBC 3.87 M/mm3 (3.65-5.03) 01/04/22 04:45 Hgb 11.6 gm/dl (11.8-15.2) L 01/04/22 04:45 Hct 34.9 % (35.5-45.6) L D 01/04/22 04:45 MCV 90 fl (84-94) 01/04/22 04:45 MCH 30 pg (28-32) 01/04/22 04:45 MCHC 33 % (32-34) 01/04/22 04:45 RDW 15.6 % (13.2-15.2) H 01/04/22 04:45 Plt Count 151 K/mm3 (140-440) 01/04/22 04:45 Lymph # (Auto) Manager Cafe 01/02/22 20:23 Add Manual Diff Complete 01/03/22 04:00 Total Counted 100 01/03/22 04:00 Seg Neuts % (Manual) 13.0 % (40.0-70.0) L 01/03/22 04:00 Band Neutrophils % 2.0 % 01/03/22 04:00 Lymphocytes % (Manual) 67.0 % (13.4-35.0) H 01/03/22 04:00 Reactive Lymphs % (Man) 7.0 % 01/03/22 04:00 Monocytes % (Manual) 1.0 % (0.0-7.3) 01/03/22 04:00 Eosinophils % (Manual) 0 % (0.0-4.3) 01/03/22 04:00 Basophils % (Manual) 0 % (0.0-1.8) 01/03/22 04:00 Metamyelocytes % 2.0 % 01/03/22 04:00 Myelocytes % 8.0 % 01/03/22 04:00 Promyelocytes % 0 % 01/03/22 04:00 Blast Cells % 0 % 01/03/22 04:00 Nucleated RBC % Not Reportable 01/03/22 04:00 Seg Neutrophils # Man 0.3 K/mm3 (1.8-7.7) L 01/03/22 04:00 Band Neutrophils # 0.0 K/mm3 01/03/22 04:00 Lymphocytes # (Manual) 1.4 K/mm3 (1.2-5.4) 01/03/22 04:00 Abs React Lymphs (Man) 0.1 K/mm3 01/03/22 04:00 Monocytes # (Manual) 0.0 K/mm3 (0.0-0.8) 01/03/22 04:00 Eosinophils # (Manual) 0.0 K/mm3 (0.0-0.4) 01/03/22 04:00 Basophils # (Manual) 0.0 K/mm3 (0.0-0.1) 01/03/22 04:00 Metamyelocytes # 0.0 K/mm3 01/03/22 04:00 Myelocytes # 0.2 K/mm3 01/03/22 04:00 Promyelocytes # 0.0 K/mm3 01/03/22 04:00 Blast Cells # 0.0 K/mm3 01/03/22 04:00 WBC Morphology Not Reportable 01/03/22 04:00 Hypersegmented Neuts Not Reportable 01/03/22 04:00 Hyposegmented Neuts Not Reportable 01/03/22 04:00 Hypogranular Neuts Not Reportable 01/03/22 04:00 Smudge Cells Not Reportable 01/03/22 04:00 Toxic Granulation Not Reportable 01/03/22 04:00 Toxic Vacuolation Not Reportable 01/03/22 04:00 Dohle Bodies Not Reportable 01/03/22 04:00 Pelger-Huet Anomaly Not Reportable 01/03/22 04:00 James Rods Not Reportable 01/03/22 04:00 Platelet Estimate Consistent w auto 01/03/22 04:00 Clumped Platelets 2+ 01/03/22 04:00 Plt Clumps, EDTA Not Reportable 01/03/22 04:00 Large Platelets 2+ 01/03/22 04:00 Giant Platelets Not Reportable 01/03/22 04:00 Platelet Satelliting Not Reportable 01/03/22 04:00 Plt Morphology Comment Not Reportable 01/03/22 04:00 RBC Morphology Not Reportable 01/03/22 04:00 Dimorphic RBCs Not Reportable 01/03/22 04:00 Polychromasia Not Reportable 01/03/22 04:00 Hypochromasia Not Reportable 01/03/22 04:00 Poikilocytosis Not Reportable 01/03/22 04:00 Anisocytosis 1+ 01/03/22 04:00 Microcytosis Not Reportable 01/03/22 04:00 Macrocytosis Not Reportable 01/03/22 04:00 Spherocytes Not Reportable 01/03/22 04:00 Pappenheimer Bodies Not Reportable 01/03/22 04:00 Sickle Cells Not Reportable 01/03/22 04:00 Target Cells Not Reportable 01/03/22 04:00 Tear Drop Cells Not Reportable 01/03/22 04:00 Ovalocytes Not Reportable 01/03/22 04:00 Helmet Cells Not Reportable 01/03/22 04:00 [place] Bodies Not Reportable 01/03/22 04:00 [place] Rings Not Reportable 01/03/22 04:00 Shanks Cells Not Reportable 01/03/22 04:00 Bite Cells Not Reportable 01/03/22 04:00 Crenated Cell Not Reportable 01/03/22 04:00 Elliptocytes Not Reportable 01/03/22 04:00 Acanthocytes (Spur) Not Reportable 01/03/22 04:00 Rouleaux Not Reportable 01/03/22 04:00 Hemoglobin C Crystals Not Reportable 01/03/22 04:00 Schistocytes Not Reportable 01/03/22 04:00 Malaria parasites Not Reportable 01/03/22 04:00 Hunter Bodies Not Reportable 01/03/22 04:00 Hem Pathologist Commnt No 01/03/22 04:00 PT 22.7 Sec. (12.2-14.9) H 01/03/22 08:03 INR 1.76 (0.87-1.13) H 01/03/22 08:03 APTT 99.5 Sec. (24.2-36.6) H* 01/03/22 16:51 Heparin Anti-Xa Level 0.24 U.I./ml (0.3-0.7) L 01/04/22 10:21 ABG pH 7.342 pH Units (7.350-7.450) L 01/04/22 07:55 ABG pCO2 44.4 mm Hg 01/04/22 07:55 ABG pO2 91.2 mm Hg (80.0-90.0) H 01/04/22 07:55 ABG HCO3 23.5 mmol/L (20.0-26.0) 01/04/22 07:55 ABG O2 Saturation 97.1 % (95.0-99.0) 01/04/22 07:55 ABG O2 Content 15.9 (0.0-44) 01/04/22 07:55 ABG Base Excess -2.2 mmol/L (-2.0-3.0) L 01/04/22 07:55 ABG Hemoglobin 11.8 gm/dl (14.0-18.0) L 01/04/22 07:55 ABG Carboxyhemoglobin 1.3 % (0.0-5.0) 01/04/22 07:55 ABG Methemoglobin 0.5 % (0.0-1.5) 01/04/22 07:55 Oxyhemoglobin 95.4 % (95.0-99.0) 01/04/22 07:55 FiO2 60 % 01/04/22 07:55 Sodium 142 mmol/L (137-145) 01/04/22 Unknown Potassium 3.2 mmol/L (3.6-5.0) L 01/04/22 Unknown Chloride 101.4 mmol/L (98-107) 01/04/22 Unknown Carbon Dioxide 24 mmol/L (22-30) 01/04/22 Unknown Anion Gap 20 mmol/L 01/04/22 Unknown BUN 35 mg/dL (9-20) H 01/04/22 Unknown Creatinine 4.0 mg/dL (0.8-1.3) H 01/04/22 Unknown Estimated GFR 18 ml/min 01/04/22 Unknown BUN/Creatinine Ratio 9 % 01/04/22 Unknown Glucose 206 mg/dL (75-100) H 01/04/22 Unknown POC Glucose 196 mg/dL (70-105) H 01/04/22 05:44 Lactic Acid 7.90 mmol/L (0.7-2.0) H* 01/03/22 08:03 Calcium 6.9 mg/dL (8.4-10.2) L 01/04/22 Unknown Phosphorus 1.80 mg/dL (2.5-4.5) L 01/04/22 04:45 Magnesium 1.10 mg/dL (1.7-2.3) L 01/04/22 04:45 Total Bilirubin 0.30 mg/dL (0.1-1.2) 01/03/22 Unknown AST 738 units/L (5-40) H 01/03/22 Unknown ALT 488 units/L (7-56) H 01/03/22 Unknown Alkaline Phosphatase 71 units/L (35-129) 01/03/22 Unknown Ammonia 79.0 umol/L (25-60) H 01/02/22 20:23 Total Creatine Kinase 668 units/L (55-170) H 01/02/22 20:23 Troponin T 0.200 ng/mL (0.00-0.029) H* 01/02/22 20:23 C-Reactive Protein 1.10 mg/dL (0.00-1.30) 01/02/22 20:23 NT-Pro-B Natriuret Pep 275.2 pg/mL (0-900) 01/02/22 20: Total Protein 4.5 g/dL (6.3-8.2) L D 01/03/22 Unknown Albumin 2.8 g/dL (3.9-5) L 01/03/22 Unknown Albumin/Globulin Ratio 1.6 % 01/03/22 Unknown Triglycerides 106 mg/dL (2-149) 01/02/22 20: Cholesterol 196 mg/dL (50-199) 01/02/22 20: LDL Cholesterol Direct 136 mg/dL (50-130) H 01/02/22 20: HDL Cholesterol 42 mg/dL (40-59) 01/02/22 20: Cholesterol/HDL Ratio 4.66 % 01/02/22 20:23 Urine Color Yellow (Yellow) 01/02/22 20:52 Urine Turbidity Cloudy (Clear) 01/02/22 20:52 Urine pH 5.0 (5.0-7.0) 01/02/22 20:52 Ur Specific [place] 1.014 (1.003-1.030) 01/02/22 20:52 Urine Protein <15 mg/dl mg/dL (Negative) 01/02/22 20:52 Urine Glucose (UA) Neg mg/dL (Negative) 01/02/22 20:52 Urine Ketones Neg mg/dL (Negative) 01/02/22 20:52 Urine Blood Sm (Negative) 01/02/22 20:52 Urine Nitrite Neg (Negative) 01/02/22 20:52 Urine Bilirubin Neg (Negative) 01/02/22 20:52 Urine Urobilinogen < 2.0 mg/dL (<2.0) 01/02/22 20:52 Ur Leukocyte Esterase Mod (Negative) 01/02/22 20:52 Urine WBC (Auto) 40.0 /HPF (0.0-6.0) H 01/02/22 20:52 Urine RBC (Auto) 13.0 /HPF (0.0-6.0) 01/02/22 20:52 U Epithel Cells (Auto) 2.0 /HPF (0-13.0) 01/02/22 20:52 Urine Bacteria (Auto) 2+ /HPF (Negative) 01/02/22 20:52 Urine Mucus Few /HPF 01/02/22 20:52 Urine Creatinine 70.0 mg/dL (0.1-20.0) H 01/03/22 20:50 Urine Sodium 91 mmol/L 01/03/22 20:50 Salicylates < 0.3 mg/dL (2.8-20.0) L 01/02/22 20:23 Urine Opiates Screen Negative 01/02/22 20:52 Urine Methadone Screen Negative 01/02/22 20:52 Acetaminophen 5.0 ug/mL (10.0-30.0) L 01/02/22 20:23 Ur Barbiturates Screen Negative 01/02/22 20:52 Ur Phencyclidine Scrn Negative 01/02/22 20:52 Ur Amphetamines Screen Negative 01/02/22 20:52 U Benzodiazepines Scrn Negative 01/02/22 20:52 Urine Cocaine Screen Negative 01/02/22 20:52 U Marijuana (THC) Screen Negative 01/02/22 20:52 Drugs of Abuse Note Disclamer 01/02/22 20:52 Plasma/Serum Alcohol < 0.01 % (0-0.07) 01/02/22 20:23 Microbiology: Microbiology 01/02/22 20:23 Peripheral/Venous Blood Culture - Preliminary NO GROWTH AFTER 24 HOURS 01/02/22 20:23 Peripheral/Venous Blood Culture - Preliminary 01/03/22 Unknown Tracheal Aspirate Sputum Culture - Preliminary 01/02/22 20:52 Urine,Clean Catch Urine Culture - Preliminary NO GROWTH AFTER 24 HOURS Gil/IV: Voiding Method Indwelling Catheter Active Medications - Current Medications Current Medications: Generic Name Dose Route Start Last Admin Trade Name Freq PRN Reason Stop Dose Admin Acetaminophen 650 mg 01/02/22 22:53 Acetaminophen 650 Mg Rect Supp CA Q6H PRN Pain MILD(1-3)/Fever >100.5/CANTRELL Famotidine 10 mg 01/03/22 11:00 01/04/22 09:18 Famotidine 20 Mg/2 Ml Inj IV 10 mg BID SALMA Administration NORepinephrine/NS 8 MG-250 ML 8 mg in 250 mls @ 3.75 mls/hr 01/02/22 21:00 01/04/22 13:00 Norepinephrine/Ns 8 Mg-250 Ml (Double Conc) IV 4 mcg/min TITRATE SALMA 7.5 mls/hr Titration Protocol 2 MCG/MIN Vasopressin 20 unit/ Sodium 101 mls @ 9.09 mls/hr 01/03/22 07:00 01/04/22 06:26 Chloride IV 0.03 units/min TITR SALMA 9.09 mls/hr Administration Protocol 0.03 UNITS/MIN Epinephrine 8 mg/ Sodium 250 mls @ 3.75 mls/hr 01/03/22 08:00 01/04/22 10:55 Chloride IV 10 mcg/min TITR SALMA 18.75 mls/hr Titration Protocol 2 MCG/MIN Sodium Bicarbonate 150 meq/ 1,000 mls @ 150 mls/hr 01/03/22 09:00 01/04/22 11:46 Dextrose IV 150 mls/hr DIRECT SALMA Administration Heparin Sodium/Sodium Chloride 25,000 unit in 500 mls @ 20 mls/hr 01/03/22 11:00 01/04/22 12:04 Heparin/ 0.45% Nacl-25,000 Unit/500 Ml IV 1,300 units/hr TITRATE SALMA 26 mls/hr Titration Protocol 1,000 UNITS/HR Cefepime HCl 2 gm in 100 mls @ 200 mls/hr 01/05/22 04:00 Cefepime/Ns 2 Gm/100 Ml IV Q24H [facility] Protocol Magnesium Hydroxide 30 ml 01/02/22 22:53 Magnesium Hydroxide (Mom) Oral Liqd Udc PO Q4H PRN Constipation Morphine Sulfate 2 mg 01/02/22 22:53 Morphine 2 Mg/1 Ml Inj IV Q4H PRN Pain, Moderate (4-6) Morphine Sulfate 4 mg 01/02/22 22:53 Morphine 4 Mg/1 Ml Inj IV Q4H PRN Pain , Severe (7-10) Ondansetron HCl 4 mg 01/02/22 22:53 Ondansetron 4 Mg/2 Ml Inj IV Q8H PRN Nausea And Vomiting Sodium Chloride 10 ml 01/03/22 10:00 01/04/22 11:01 Sodium Chloride 0.9% 10 Ml Flush Syringe IV 10 ml BID SALMA Administration Sodium Chloride 10 ml 01/02/22 22:53 Sodium Chloride 0.9% 10 Ml Flush Syringe IV PRN PRN LINE FLUSH Nutrition/Malnutrition Assess - Dietary Evaluation Nutrition/Malnutrition Findings: Nutrition Notes Start: 01/03/22 17:09 Freq: Status: Active Protocol: Document 01/03/22 17:09 [place] (Rec: 01/03/22 17:55 [place] [id number]) Nutrition Notes Need for Assessment generated from: MD Order,oil boiler,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 Current Diet NPO (since 01/02 22:54). Labs/Tests 01/03: Na 146, K 3.0, CO2 17, Crea 2.5, Glu 149. Pertinent Medications 01/03: Nutritionally unremarkable. 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 Weight Status Appropriate Subjective/Other Information RD consult for skin risk, risk of malnutrition, nutrition education assessments, and write/manage TF. Pt currently on NPO. I will prescribe and order TF to provide at least 75% of Pt' s energy/protein needs during LOS. Pt is on Mechanical Ventilation, O2 saturation @ 100%, according to Physical Assessment History notes. Pt has missing teeth, according to Physical Assessment History notes. Pt shows no signs of concern foir skin risk at the time, according to Physical Assessment History notes. Pt shows no signs of concern for risk of malnutrition at the time, according to Physical Assessment History notes. Pt still in critical condition , not a candidate for Nutrition Education at the time, will assess feasibility on F/U. Percent of energy/protein needs met: Pt currently on NPO. Burn Absent Trauma Absent GI Symptoms None Food Allergy No Skin Integrity/Comment Assessment WNL. Current % PO Other Minimum of two criteria No Fluid Accumulation N/A Reduced Order Builder Loader Strength N/A (non-severe) Protein-Calorie Malnutrition N\A #1 Nutrition Diagnosis Inadequate oral intake Etiology Pt is on Mechanical Ventilation. As Evidenced by Signs and Symptoms Pt currently on NPO. Is patient on ventilator? Yes Is Patient Ambulatory and/or Out of Bed No REE[facility]) 2038.100 Kcal/Kg value to use for calculation 26 Approximate Energy Requirements Using 2254 kcal/Kg Calculation Used for Recommendations 65-70% [id number] Additional Notes Protein: 0.8-1.2 g/Kg ABW; 70- 104 g/day. Fluids: 1 ml/Kcal, or as per MD. Nutrition Intervention Nutrition Support: Start TF=Nepro w/CARBSTEADY @ 35 ml/hr. Flush: 250 ml water Q 4 hr, or as per MD. Kcal 1,500 Protein (gm) 68 Carbohydrates (gm) 134 Fat (gm) 80 Fluid (mL) 606 Fiber (gm) 11 % RDI: 67% Kcal; 96% AA. Goal #1 Provide at least 75% of energy /protein needs through Enteral Feeding during LOS. Follow-Up By: 01/05/22 Additional Comments Start monitoring TF tolerance and BM. <TANI SERRANO - Last Filed: 01/04/22 18:07> Assessment and Plan Assessment and plan: I saw and evaluated the patient. I agree with the assessment and plan outlined by the nurse practitioner. Family has elected to terminally extubate the patient. Will place extubation orders. Hospitalist Physical - Constitutional Vitals: Temp Pulse Resp BP Pulse Ox 97.9 F 87 30 H 89/62 94 01/04/22 16:00 01/04/22 17:00 01/04/22 17:00 01/04/22 17:00 01/04/22 17:00 HEART Score - HEART Score Troponin: Troponin T 0.200 ng/mL (0.00-0.029) H* 01/02/22 20:23 Results - Labs CBC & Chem 7: 01/04/22 04:45 01/04/22 Unknown Labs: Laboratory Last Values WBC 4.7 K/mm3 (4.5-11.0) 01/04/22 04:45 RBC 3.87 M/mm3 (3.65-5.03) 01/04/22 04:45 Hgb 11.6 gm/dl (11.8-15.2) L 01/04/22 04:45 Hct 34.9 % (35.5-45.6) L D 01/04/22 04:45 MCV 90 fl (84-94) 01/04/22 04:45 MCH 30 pg (28-32) 01/04/22 04:45 MCHC 33 % (32-34) 01/04/22 04:45 RDW 15.6 % (13.2-15.2) H 01/04/22 04:45 Plt Count 151 K/mm3 (140-440) 01/04/22 04:45 Lymph # (Auto) Manager Cafe 01/02/22 20:23 Add Manual Diff Complete 01/03/22 04:00 Total Counted 100 01/03/22 04:00 Seg Neuts % (Manual) 13.0 % (40.0-70.0) L 01/03/22 04:00 Band Neutrophils % 2.0 % 01/03/22 04:00 Lymphocytes % (Manual) 67.0 % (13.4-35.0) H 01/03/22 04:00 Reactive Lymphs % (Man) 7.0 % 01/03/22 04:00 Monocytes % (Manual) 1.0 % (0.0-7.3) 01/03/22 04:00 Eosinophils % (Manual) 0 % (0.0-4.3) 01/03/22 04:00 Basophils % (Manual) 0 % (0.0-1.8) 01/03/22 04:00 Metamyelocytes % 2.0 % 01/03/22 04:00 Myelocytes % 8.0 % 01/03/22 04:00 Promyelocytes % 0 % 01/03/22 04:00 Blast Cells % 0 % 01/03/22 04:00 Nucleated RBC % Not Reportable 01/03/22 04:00 Seg Neutrophils # Man 0.3 K/mm3 (1.8-7.7) L 01/03/22 04:00 Band Neutrophils # 0.0 K/mm3 01/03/22 04:00 Lymphocytes # (Manual) 1.4 K/mm3 (1.2-5.4) 01/03/22 04:00 Abs React Lymphs (Man) 0.1 K/mm3 01/03/22 04:00 Monocytes # (Manual) 0.0 K/mm3 (0.0-0.8) 01/03/22 04:00 Eosinophils # (Manual) 0.0 K/mm3 (0.0-0.4) 01/03/22 04:00 Basophils # (Manual) 0.0 K/mm3 (0.0-0.1) 01/03/22 04:00 Metamyelocytes # 0.0 K/mm3 01/03/22 04:00 Myelocytes # 0.2 K/mm3 01/03/22 04:00 Promyelocytes # 0.0 K/mm3 01/03/22 04:00 Blast Cells # 0.0 K/mm3 01/03/22 04:00 WBC Morphology Not Reportable 01/03/22 04:00 Hypersegmented Neuts Not Reportable 01/03/22 04:00 Hyposegmented Neuts Not Reportable 01/03/22 04:00 Hypogranular Neuts Not Reportable 01/03/22 04:00 Smudge Cells Not Reportable 01/03/22 04:00 Toxic Granulation Not Reportable 01/03/22 04:00 Toxic Vacuolation Not Reportable 01/03/22 04:00 Dohle Bodies Not Reportable 01/03/22 04:00 Pelger-Huet Anomaly Not Reportable 01/03/22 04:00 James Rods Not Reportable 01/03/22 04:00 Platelet Estimate Consistent w auto 01/03/22 04:00 Clumped Platelets 2+ 01/03/22 04:00 Plt Clumps, EDTA Not Reportable 01/03/22 04:00 Large Platelets 2+ 01/03/22 04:00 Giant Platelets Not Reportable 01/03/22 04:00 Platelet Satelliting Not Reportable 01/03/22 04:00 Plt Morphology Comment Not Reportable 01/03/22 04:00 RBC Morphology Not Reportable 01/03/22 04:00 Dimorphic RBCs Not Reportable 01/03/22 04:00 Polychromasia Not Reportable 01/03/22 04:00 Hypochromasia Not Reportable 01/03/22 04:00 Poikilocytosis Not Reportable 01/03/22 04:00 Anisocytosis 1+ 01/03/22 04:00 Microcytosis Not Reportable 01/03/22 04:00 Macrocytosis Not Reportable 01/03/22 04:00 Spherocytes Not Reportable 01/03/22 04:00 Pappenheimer Bodies Not Reportable 01/03/22 04:00 Sickle Cells Not Reportable 01/03/22 04:00 Target Cells Not Reportable 01/03/22 04:00 Tear Drop Cells Not Reportable 01/03/22 04:00 Ovalocytes Not Reportable 01/03/22 04:00 Helmet Cells Not Reportable 01/03/22 04:00 [place] Bodies Not Reportable 01/03/22 04:00 [place] Rings Not Reportable 01/03/22 04:00 Ramu Cells Not Reportable 01/03/22 04:00 Bite Cells Not Reportable 01/03/22 04:00 Crenated Cell Not Reportable 01/03/22 04:00 Elliptocytes Not Reportable 01/03/22 04:00 Acanthocytes (Spur) Not Reportable 01/03/22 04:00 Rouleaux Not Reportable 01/03/22 04:00 Hemoglobin C Crystals Not Reportable 01/03/22 04:00 Schistocytes Not Reportable 01/03/22 04:00 Malaria parasites Not Reportable 01/03/22 04:00 Hunter Bodies Not Reportable 01/03/22 04:00 Hem Pathologist Commnt No 01/03/22 04:00 PT 22.7 Sec. (12.2-14.9) H 01/03/22 08:03 INR 1.76 (0.87-1.13) H 01/03/22 08:03 APTT 99.5 Sec. (24.2-36.6) H* 01/03/22 16:51 Heparin Anti-Xa Level 0.24 U.I./ml (0.3-0.7) L 01/04/22 10:21 ABG pH 7.342 pH Units (7.350-7.450) L 01/04/22 07:55 ABG pCO2 44.4 mm Hg 01/04/22 07:55 ABG pO2 91.2 mm Hg (80.0-90.0) H 01/04/22 07:55 ABG HCO3 23.5 mmol/L (20.0-26.0) 01/04/22 07:55 ABG O2 Saturation 97.1 % (95.0-99.0) 01/04/22 07:55 ABG O2 Content 15.9 (0.0-44) 01/04/22 07:55 ABG Base Excess -2.2 mmol/L (-2.0-3.0) L 01/04/22 07:55 ABG Hemoglobin 11.8 gm/dl (14.0-18.0) L 01/04/22 07:55 ABG Carboxyhemoglobin 1.3 % (0.0-5.0) 01/04/22 07:55 ABG Methemoglobin 0.5 % (0.0-1.5) 01/04/22 07:55 Oxyhemoglobin 95.4 % (95.0-99.0) 01/04/22 07:55 FiO2 60 % 01/04/22 07:55 Sodium 142 mmol/L (137-145) 01/04/22 Unknown Potassium 3.2 mmol/L (3.6-5.0) L 01/04/22 Unknown Chloride 101.4 mmol/L (98-107) 01/04/22 Unknown Carbon Dioxide 24 mmol/L (22-30) 01/04/22 Unknown Anion Gap 20 mmol/L 01/04/22 Unknown BUN 35 mg/dL (9-20) H 01/04/22 Unknown Creatinine 4.0 mg/dL (0.8-1.3) H 01/04/22 Unknown Estimated GFR 18 ml/min 01/04/22 Unknown BUN/Creatinine Ratio 9 % 01/04/22 Unknown Glucose 206 mg/dL (75-100) H 01/04/22 Unknown POC Glucose 196 mg/dL (70-105) H 01/04/22 05:44 Lactic Acid 7.90 mmol/L (0.7-2.0) H* 01/03/22 08:03 Calcium 6.9 mg/dL (8.4-10.2) L 01/04/22 Unknown Phosphorus 1.80 mg/dL (2.5-4.5) L 01/04/22 04:45 Magnesium 1.10 mg/dL (1.7-2.3) L 01/04/22 04:45 Total Bilirubin 0.30 mg/dL (0.1-1.2) 01/03/22 Unknown AST 738 units/L (5-40) H 01/03/22 Unknown ALT 488 units/L (7-56) H 01/03/22 Unknown Alkaline Phosphatase 71 units/L (35-129) 01/03/22 Unknown Ammonia 79.0 umol/L (25-60) H 01/02/22 20:23 Total Creatine Kinase 668 units/L (55-170) H 01/02/22 20:23 Troponin T 0.200 ng/mL (0.00-0.029) H* 01/02/22 20: C-Reactive Protein 1.10 mg/dL (0.00-1.30) 01/02/22 20: NT-Pro-B Natriuret Pep 275.2 pg/mL (0-900) 01/02/22 20: Total Protein 4.5 g/dL (6.3-8.2) L D 01/03/22 Unknown Albumin 2.8 g/dL (3.9-5) L 01/03/22 Unknown Albumin/Globulin Ratio 1.6 % 01/03/22 Unknown Triglycerides 106 mg/dL (2-149) 01/02/22 20: Cholesterol 196 mg/dL (50-199) 01/02/22 20: LDL Cholesterol Direct 136 mg/dL (50-130) H 01/02/22 20: HDL Cholesterol 42 mg/dL (40-59) 01/02/22 20: Cholesterol/HDL Ratio 4.66 % 01/02/22 20:23 Urine Color Yellow (Yellow) 01/02/22 20:52 Urine Turbidity Cloudy (Clear) 01/02/22 20:52 Urine pH 5.0 (5.0-7.0) 01/02/22 20:52 Ur Specific [place] 1.014 (1.003-1.030) 01/02/22 20:52 Urine Protein <15 mg/dl mg/dL (Negative) 01/02/22 20:52 Urine Glucose (UA) Neg mg/dL (Negative) 01/02/22 20:52 Urine Ketones Neg mg/dL (Negative) 01/02/22 20:52 Urine Blood Sm (Negative) 01/02/22 20:52 Urine Nitrite Neg (Negative) 01/02/22 20:52 Urine Bilirubin Neg (Negative) 01/02/22 20:52 Urine Urobilinogen < 2.0 mg/dL (<2.0) 01/02/22 20:52 Ur Leukocyte Esterase Mod (Negative) 01/02/22 20:52 Urine WBC (Auto) 40.0 /HPF (0.0-6.0) H 01/02/22 20:52 Urine RBC (Auto) 13.0 /HPF (0.0-6.0) 01/02/22 20:52 U Epithel Cells (Auto) 2.0 /HPF (0-13.0) 01/02/22 20:52 Urine Bacteria (Auto) 2+ /HPF (Negative) 01/02/22 20:52 Urine Mucus Few /HPF 01/02/22 20:52 Urine Creatinine 70.0 mg/dL (0.1-20.0) H 01/03/22 20:50 Urine Sodium 91 mmol/L 01/03/22 20:50 Salicylates < 0.3 mg/dL (2.8-20.0) L 01/02/22 20:23 Urine Opiates Screen Negative 01/02/22 20:52 Urine Methadone Screen Negative 01/02/22 20:52 Acetaminophen 5.0 ug/mL (10.0-30.0) L 01/02/22 20:23 Ur Barbiturates Screen Negative 01/02/22 20:52 Ur Phencyclidine Scrn Negative 01/02/22 20:52 Ur Amphetamines Screen Negative 01/02/22 20:52 U Benzodiazepines Scrn Negative 01/02/22 20:52 Urine Cocaine Screen Negative 01/02/22 20:52 U Marijuana (THC) Screen Negative 01/02/22 20:52 Drugs of Abuse Note Disclamer 01/02/22 20:52 Plasma/Serum Alcohol < 0.01 % (0-0.07) 01/02/22 20:23 Microbiology: Microbiology 01/02/22 20:52 Urine,Clean Catch Urine Culture - Final NO GROWTH AFTER 48 HOURS 01/03/22 Unknown Tracheal Aspirate Sputum Culture - Preliminary 01/02/22 20:23 Peripheral/Venous Blood Culture - Preliminary Coag Negative Staphylococcus 01/02/22 20:23 Peripheral/Venous Blood Culture - Preliminary Coag Negative Staphylococcus Gil/IV: Voiding Method Indwelling Catheter Active Medications - Current Medications Current Medications: Generic Name Dose Route Start Last Admin Trade Name Freq PRN Reason Stop Dose Admin Acetaminophen 650 mg 01/02/22 22:53 Acetaminophen 650 Mg Rect Supp CA Q6H PRN Pain MILD(1-3)/Fever >100.5/CANTRELL Famotidine 10 mg 01/03/22 11:00 01/04/22 09:18 Famotidine 20 Mg/2 Ml Inj IV 10 mg BID SALMA Administration NORepinephrine/NS 8 MG-250 ML 8 mg in 250 mls @ 3.75 mls/hr 01/02/22 21:00 01/04/22 14:45 Norepinephrine/Ns 8 Mg-250 Ml (Double Conc) IV 0 mcg/min TITRATE SALMA 0 mls/hr Titration Protocol 2 MCG/MIN Vasopressin 20 unit/ Sodium 101 mls @ 9.09 mls/hr 01/03/22 07:00 01/04/22 15:23 Chloride IV 0 units/min TITR SALMA 0 mls/hr Titration Protocol 0.03 UNITS/MIN Epinephrine 8 mg/ Sodium 250 mls @ 3.75 mls/hr 01/03/22 08:00 01/04/22 10:55 Chloride IV 10 mcg/min TITR SALMA 18.75 mls/hr Titration Protocol 2 MCG/MIN Heparin Sodium/Sodium Chloride 25,000 unit in 500 mls @ 20 mls/hr 01/03/22 11:00 01/04/22 12:04 Heparin/ 0.45% Nacl-25,000 Unit/500 Ml IV 1,300 units/hr TITRATE SALMA 26 mls/hr Titration Protocol 1,000 UNITS/HR Cefepime HCl 2 gm in 100 mls @ 200 mls/hr 01/05/22 04:00 Cefepime/Ns 2 Gm/100 Ml IV Q24H [facility] Protocol Magnesium Hydroxide 30 ml 01/02/22 22:53 Magnesium Hydroxide (Mom) Oral Liqd Udc PO Q4H PRN Constipation Morphine Sulfate 2 mg 01/02/22 22:53 Morphine 2 Mg/1 Ml Inj IV Q4H PRN Pain, Moderate (4-6) Morphine Sulfate 4 mg 01/02/22 22:53 Morphine 4 Mg/1 Ml Inj IV Q4H PRN Pain , Severe (7-10) Ondansetron HCl 4 mg 01/02/22 22:53 Ondansetron 4 Mg/2 Ml Inj IV Q8H PRN Nausea And Vomiting Sodium Chloride 10 ml 01/03/22 10:00 01/04/22 11:01 Sodium Chloride 0.9% 10 Ml Flush Syringe IV 10 ml BID SALMA Administration Sodium Chloride 10 ml 01/02/22 22:53 Sodium Chloride 0.9% 10 Ml Flush Syringe IV PRN PRN LINE FLUSH Nutrition/Malnutrition Assess - Dietary Evaluation Nutrition/Malnutrition Findings: Nutrition Notes Start: 01/03/22 17:09 Freq: Status: Active Protocol: Document 01/03/22 17:09 [place] (Rec: 01/03/22 17:55 [place] [email or web address]) Nutrition Notes Need for Assessment generated from: MD Order,oil boiler,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 Current Diet NPO (since 01/02 22:54). Labs/Tests 01/03: Na 146, K 3.0, CO2 17, Crea 2.5, Glu 149. Pertinent Medications 01/03: Nutritionally unremarkable. 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 Weight Status Appropriate Subjective/Other Information RD consult for skin risk, risk of malnutrition, nutrition education assessments, and write/manage TF. Pt currently on NPO. I will prescribe and order TF to provide at least 75% of Pt' s energy/protein needs during LOS. Pt is on Mechanical Ventilation, O2 saturation @ 100%, according to Physical Assessment History notes. Pt has missing teeth, according to Physical Assessment History notes. Pt shows no signs of concern foir skin risk at the time, according to Physical Assessment History notes. Pt shows no signs of concern for risk of malnutrition at the time, according to Physical Assessment History notes. Pt still in critical condition , not a candidate for Nutrition Education at the time, will assess feasibility on F/U. Percent of energy/protein needs met: Pt currently on NPO. Burn Absent Trauma Absent GI Symptoms None Food Allergy No Skin Integrity/Comment Assessment WNL. Current % PO Other Minimum of two criteria No Fluid Accumulation N/A Reduced Order Builder Loader Strength N/A (non-severe) Protein-Calorie Malnutrition N\A #1 Nutrition Diagnosis Inadequate oral intake Etiology Pt is on Mechanical Ventilation. As Evidenced by Signs and Symptoms Pt currently on NPO. Is patient on ventilator? Yes Is Patient Ambulatory and/or Out of Bed No REE-([facility]-conf[facility]) 2038.100 Kcal/Kg value to use for calculation 26 Approximate Energy Requirements Using 2254 kcal/Kg Calculation Used for Recommendations 65-70% [id number] Additional Notes Protein: 0.8-1.2 g/Kg ABW; 70- 104 g/day. Fluids: 1 ml/Kcal, or as per MD. Nutrition Intervention Nutrition Support: Start TF=Nepro w/CARBSTEADY @ 35 ml/hr. Flush: 250 ml water Q 4 hr, or as per MD. Kcal 1,500 Protein (gm) 68 Carbohydrates (gm) 134 Fat (gm) 80 Fluid (mL) 606 Fiber (gm) 11 % RDI: 67% Kcal; 96% AA. Goal #1 Provide at least 75% of energy /protein needs through Enteral Feeding during LOS. Follow-Up By: 01/05/22 Additional Comments Start monitoring TF tolerance and BM.
--- NOTE | 2022-01-04 16:13 | Progress Note ---
Assessment and Plan Cultures: Blood culture GPC 07/27 bottles. Urine culture no growth so far Sputum culture no growth so far A/P: 66 yo M no known PMHx now with: #Acute hypoxic resp failure: currently ont he vent. With pneumothorax, now with right lung opacity. #SIRS/sepsis: may be due to cardiac arrest, no evident infection at present. Low temps/leukocytosis and now leukoepenia #SKYLER: renally odse medications #Gpc bacteremia: probably contaminant Recs: -Contyinue vancomycin goal trough 10-20 -follow up blood cultures -Started cefepime 2g q12h Thank you for the consult, we will continue to follow. Vita Asif MD [facility] ([facility]) O: [phone] F: [phone] Subjective Date of service: 01/04/22 Principal diagnosis: cardiopulmonary arrest Interval history: Afebrile, normal white count. Blood culture still pending. Imaging personally reviewed: Chest x-ray partial clearing of bilateral lung opacities Objective - Exam Narrative Exam: Physical Exam: Constitutional: Intubates, sedated Head, Ears, Nose: Normocephalic, atraumatic. External ears, nose normal Eyes: Conjunctivae/corneas clear. No icterus. No ptosis. Neck: Supple, no meningeal signs Oral: ETT Cardiovascular: S1, S2 normal. Respiratory: Good air entry, clear to auscultation bilaterally GI: Soft, non-tender; bowel sounds normal. No peritoneal signs. Musculoskeletal: No pedal edema, no cyanosis. Skin: No rash or abscess Hem/Lymphatic: No palpable cervical or supraclavicular nodes. No lymphangitis Psych: Sedated Neurological:Sedated - Constitutional Vitals: Vital Signs Temp Pulse Resp BP Pulse Ox 98.5 F 85 30 H 92/62 94 01/04/22 11:47 01/04/22 16:00 01/04/22 16:00 01/04/22 16:00 01/04/22 16:00 Temperature -Last 24 Hours Temperature 98.5 F Temperature 95.9 F Temperature 97.5 F Temperature 97.9 F Temperature 97.6 F Temperature 98.8 F - Labs CBC & Chem 7: 01/04/22 04:45 01/04/22 Unknown Labs: Abnormal lab results 01/03/22 01/03/22 01/03/22 Range/Units 16:51 18:20 19:00 Hgb (11.8-15.2) gm/dl Hct (35.5-45.6) % RDW (13.2-15.2) % APTT 99.5 H* (24.2-36.6) Sec. Heparin Anti-Xa Level 0.25 L (0.3-0.7) U.I./ml ABG pH 7.246 L (7.350-7.450) pH Units ABG pO2 118.9 H (80.0-90.0) mm Hg ABG Base Excess -6.4 L (-2.0-3.0) mmol/L ABG Hemoglobin 13.1 L (14.0-18.0) gm/dl Sodium (137-145) mmol/L Potassium (3.6-5.0) mmol/L Chloride (98-107) mmol/L BUN (9-20) mg/dL Creatinine (0.8-1.3) mg/dL Glucose (75-100) mg/dL POC Glucose (70-105) mg/dL Calcium (8.4-10.2) mg/dL Phosphorus (2.5-4.5) mg/dL Magnesium (1.7-2.3) mg/dL AST (5-40) units/L ALT (7-56) units/L Total Protein (6.3-8.2) g/dL Albumin (3.9-5) g/dL Urine Creatinine (0.1-20.0) mg/dL 01/03/22 01/03/22 01/04/22 Range/Units 20:50 Unknown 00:39 Hgb (11.8-15.2) gm/dl Hct (35.5-45.6) % RDW (13.2-15.2) % APTT (24.2-36.6) Sec. Heparin Anti-Xa Level (0.3-0.7) U.I./ml ABG pH (7.350-7.450) pH Units ABG pO2 (80.0-90.0) mm Hg ABG Base Excess (-2.0-3.0) mmol/L ABG Hemoglobin (14.0-18.0) gm/dl Sodium 146 H (137-145) mmol/L Potassium (3.6-5.0) mmol/L Chloride 108.4 H (98-107) mmol/L BUN 28 H (9-20) mg/dL Creatinine 3.1 H (0.8-1.3) mg/dL Glucose (75-100) mg/dL POC Glucose 149 H (70-105) mg/dL Calcium 7.6 L (8.4-10.2) mg/dL Phosphorus (2.5-4.5) mg/dL Magnesium (1.7-2.3) mg/dL AST 738 H (5-40) units/L ALT 488 H (7-56) units/L Total Protein 4.5 L D (6.3-8.2) g/dL Albumin 2.8 L (3.9-5) g/dL Urine Creatinine 70.0 H (0.1-20.0) mg/dL 01/04/22 01/04/22 01/04/22 Range/Units 04:45 04:45 05:44 Hgb 11.6 L (11.8-15.2) gm/dl Hct 34.9 L D (35.5-45.6) % RDW 15.6 H (13.2-15.2) % APTT (24.2-36.6) Sec. Heparin Anti-Xa Level (0.3-0.7) U.I./ml ABG pH (7.350-7.450) pH Units ABG pO2 (80.0-90.0) mm Hg ABG Base Excess (-2.0-3.0) mmol/L ABG Hemoglobin (14.0-18.0) gm/dl Sodium (137-145) mmol/L Potassium (3.6-5.0) mmol/L Chloride (98-107) mmol/L BUN (9-20) mg/dL Creatinine (0.8-1.3) mg/dL Glucose (75-100) mg/dL POC Glucose 196 H (70-105) mg/dL Calcium (8.4-10.2) mg/dL Phosphorus 1.80 L (2.5-4.5) mg/dL Magnesium 1.10 L (1.7-2.3) mg/dL AST (5-40) units/L ALT (7-56) units/L Total Protein (6.3-8.2) g/dL Albumin (3.9-5) g/dL Urine Creatinine (0.1-20.0) mg/dL 01/04/22 01/04/22 01/04/22 Range/Units 07:55 10:21 Unknown Hgb (11.8-15.2) gm/dl Hct (35.5-45.6) % RDW (13.2-15.2) % APTT (24.2-36.6) Sec. Heparin Anti-Xa Level 0.24 L (0.3-0.7) U.I./ml ABG pH 7.342 L (7.350-7.450) pH Units ABG pO2 91.2 H (80.0-90.0) mm Hg ABG Base Excess -2.2 L (-2.0-3.0) mmol/L ABG Hemoglobin 11.8 L (14.0-18.0) gm/dl Sodium (137-145) mmol/L Potassium 3.2 L (3.6-5.0) mmol/L Chloride (98-107) mmol/L BUN 35 H (9-20) mg/dL Creatinine 4.0 H (0.8-1.3) mg/dL Glucose 206 H (75-100) mg/dL POC Glucose (70-105) mg/dL Calcium 6.9 L (8.4-10.2) mg/dL Phosphorus (2.5-4.5) mg/dL Magnesium (1.7-2.3) mg/dL AST (5-40) units/L ALT (7-56) units/L Total Protein (6.3-8.2) g/dL Albumin (3.9-5) g/dL Urine Creatinine (0.1-20.0) mg/dL
--- NOTE | 2022-01-04 16:35 | Progress Note ---
Assessment and Plan S/p cardiopulmonary arrest x2 with ROSC- Vfib and the bradycardia -requiring multiple pressors Acute hypxemic-hypercarbic respiratory failure on MVS Right Pneumothorax s/p chest tube Acute renal failure- vasomotor nephropathy/ATN Elevated live enzymes- possibly shock liver Elevated Ammonia Possible anoxic brain injury NSTEMI Hypernatremia -Titrate supplemntal oxygen to keep SpO2 90-92% -Lung protective strategies, PEEP while monitoring airway pressures -CXR, ABG as clinically indicated -Wean vasopressors for MAP>65 -Monitoring renal function, hemodynamics and electrolyte profile -Avoid nephrotoxins and renally dose all medications -Replete electrolytes as clinically indicated -Empiric antibiotics- follow cultures and de-escalate based on culture data and clinical response ID following -Accuchecks with glycemic control. target blood glucose 140-180 mg/dL. Avoid hypoglycemia -Continue with chest tube management- both to -20cm -VTE prophylaxis- therapeutic heparin -Stress ulcer prophylaxis- famotidine -Mobility, frequent turning, off loading per facility protocol to prevent pressure ulcers -Cardioprotective measures CONDITION:CRITICAL PROGNOSIS: GUARDED CODE STATUS: DNAR Son states that the family is planning on withdrawal of care at some point today The high probability of a clinically significant, sudden or life threatening deterioration of the respiratory, cardiovascular, neurology system required my full and direct attention, intervention and personal management. The aggregate c ritical care time was [33] minutes. This time is in addition to time spent performing reported procedures but includes the following: [x] Data Review and interpretation [x] Patient assessment and monitoring of vital signs [x] Documentation [x] Medication orders and management Subjective Date of service: 01/04/22 Principal diagnosis: cardiopulmonary arrest Interval history: Follow up: Cardiopulmonary arrest with ROSC; septic shock; acute hypoxemic- hypercapnic resp failure on MVS, right pneumothorax s/p chest tubes x2; severe metabolic acidosis; acute renal failure Seen and examined. Vitals, labs, medications, chart and imaging reviewed. Discussed with nursing and respiratory care team. Episodes of desaturations and hypotension overnight. Hypothermia this afternoon Riding the set rate on MVS, son is visiting at the bedside Objective Vital Signs - 12hr 01/04/22 01/04/22 01/04/22 04:45 05:00 05:15 Temperature Pulse Rate 83 86 86 Pulse Rate [ From Monitor] Respiratory 30 H 30 H 30 H Rate Blood Pressure 72/49 82/58 90/57 O2 Sat by Pulse 97 97 96 Oximetry 01/04/22 01/04/22 01/04/22 05:30 05:45 06:01 Temperature Pulse Rate 86 86 86 Pulse Rate [ From Monitor] Respiratory 30 H 30 H 30 H Rate Blood Pressure 87/69 87/69 87/69 O2 Sat by Pulse 97 97 97 Oximetry 01/04/22 01/04/22 01/04/22 06:15 06:31 06:45 Temperature Pulse Rate 87 84 85 Pulse Rate [ From Monitor] Respiratory 30 H 30 H 30 H Rate Blood Pressure 87/69 87/69 86/63 O2 Sat by Pulse 97 98 96 Oximetry 01/04/22 01/04/22 01/04/22 07:00 07:06 07:15 Temperature Pulse Rate 84 86 83 Pulse Rate [ From Monitor] Respiratory 30 H 30 H Rate Blood Pressure 87/64 87/69 105/55 O2 Sat by Pulse 97 97 97 Oximetry 01/04/22 01/04/22 01/04/22 07:31 07:38 07:45 Temperature 97.5 F L Pulse Rate 84 84 Pulse Rate [ From Monitor] Respiratory 30 H 30 H Rate Blood Pressure 86/62 87/65 O2 Sat by Pulse 97 97 Oximetry 01/04/22 01/04/22 01/04/22 08:00 08:15 08:30 Temperature Pulse Rate 83 83 83 Pulse Rate [ 84 From Monitor] Respiratory 30 H 30 H 30 H Rate Blood Pressure 89/63 99/59 84/62 O2 Sat by Pulse 96 97 97 Oximetry 01/04/22 01/04/22 01/04/22 08:45 09:01 09:15 Temperature Pulse Rate 83 83 82 Pulse Rate [ From Monitor] Respiratory 30 H 30 H 30 H Rate Blood Pressure 88/70 88/70 88/70 O2 Sat by Pulse 97 97 98 Oximetry 01/04/22 01/04/22 01/04/22 09:30 09:40 09:45 Temperature 95.9 F L Pulse Rate 84 83 Pulse Rate [ From Monitor] Respiratory 30 H 30 H Rate Blood Pressure 104/68 90/68 O2 Sat by Pulse 98 99 Oximetry 01/04/22 01/04/22 01/04/22 10:00 10:15 10:31 Temperature Pulse Rate 82 81 80 Pulse Rate [ From Monitor] Respiratory 30 H 30 H 30 H Rate Blood Pressure 91/69 91/69 87/68 O2 Sat by Pulse 98 97 97 Oximetry 01/04/22 01/04/22 01/04/22 10:45 11:01 11:15 Temperature Pulse Rate 81 82 81 Pulse Rate [ From Monitor] Respiratory 30 H 30 H 30 H Rate Blood Pressure 87/68 104/80 105/82 O2 Sat by Pulse 97 100 Oximetry 01/04/22 01/04/22 01/04/22 11:26 11:30 11:45 Temperature Pulse Rate 84 82 83 Pulse Rate [ From Monitor] Respiratory 30 H 30 H Rate Blood Pressure 104/68 110/86 112/86 O2 Sat by Pulse 98 99 99 Oximetry 01/04/22 01/04/22 01/04/22 11:47 12:00 12:09 Temperature 98.5 F Pulse Rate 80 Pulse Rate [ 80 From Monitor] Respiratory 30 H 30 H Rate Blood Pressure 106/78 O2 Sat by Pulse 99 97 Oximetry 01/04/22 01/04/22 01/04/22 12:15 12:30 12:45 Temperature Pulse Rate 82 81 82 Pulse Rate [ From Monitor] Respiratory 30 H 30 H 30 H Rate Blood Pressure 108/84 105/82 106/78 O2 Sat by Pulse 98 98 97 Oximetry 01/04/22 01/04/22 01/04/22 13:00 13:15 13:30 Temperature Pulse Rate 82 81 80 Pulse Rate [ From Monitor] Respiratory 30 H 30 H 30 H Rate Blood Pressure 108/87 102/78 106/83 O2 Sat by Pulse 97 97 96 Oximetry 01/04/22 01/04/22 01/04/22 13:45 14:00 14:15 Temperature Pulse Rate 81 80 82 Pulse Rate [ From Monitor] Respiratory 30 H 30 H 30 H Rate Blood Pressure 108/85 92/66 110/85 O2 Sat by Pulse 97 98 97 Oximetry 01/04/22 01/04/22 01/04/22 14:30 14:45 15:00 Temperature Pulse Rate 81 81 82 Pulse Rate [ From Monitor] Respiratory 30 H 30 H 30 H Rate Blood Pressure 119/93 116/87 110/80 O2 Sat by Pulse 97 96 97 Oximetry 01/04/22 01/04/22 01/04/22 15:07 15:15 15:30 Temperature Pulse Rate 81 79 80 Pulse Rate [ From Monitor] Respiratory 30 H 30 H Rate Blood Pressure 119/93 107/82 104/76 O2 Sat by Pulse 97 97 96 Oximetry 01/04/22 01/04/22 01/04/22 15:45 16:00 16:13 Temperature Pulse Rate 84 83 Pulse Rate [ 85 From Monitor] Respiratory 30 H 30 H 30 H Rate Blood Pressure 94/70 92/62 O2 Sat by Pulse 95 94 97 Oximetry Constitutional: comatose, other (orally intuabted to MVS) Eyes: non-icteric ENT: oropharynx moist Neck: supple, no lymphadenopathy Effort: mildly labored Cardiovascular: regular rate and rhythm (tachycardia), other (S1,S2) Gastrointestinal: normoactive bowel sounds, soft, other (distended, Gil in place, right femoral CVL) Integumentary: normal Extremities: cool Neurologic: pupils equal and round (fixed and dilated, no cough, no gag reflex), unable to assess, other Psychiatric: other (Unable to asses psych) CBC and BMP: 01/04/22 04:45 01/04/22 Unknown ABG, PT/INR, D-dimer: ABG ABG pH 7.342 pH Units (7.350-7.450) L 01/04/22 07:55 ABG pCO2 44.4 mm Hg 01/04/22 07:55 ABG pO2 91.2 mm Hg (80.0-90.0) H 01/04/22 07:55 ABG O2 Saturation 97.1 % (95.0-99.0) 01/04/22 07:55 PT/INR, D-dimer PT 22.7 Sec. (12.2-14.9) H 01/03/22 08:03 INR 1.76 (0.87-1.13) H 01/03/22 08:03 Abnormal lab findings: Abnormal Labs 01/02/22 01/02/22 01/02/22 20:00 20:23 20:23 WBC 14.7 H Hgb Hct RDW 16.3 H Seg Neuts % (Manual) 36.0 L Lymphocytes % (Manual) 61.0 H Seg Neutrophils # Man Lymphocytes # (Manual) 9.0 H PT 15.2 H INR APTT Heparin Anti-Xa Level ABG pH 7.049 L* ABG pO2 90.3 H ABG HCO3 ABG O2 Saturation 93.2 L ABG Base Excess -10.6 L ABG Hemoglobin 13.1 L Oxyhemoglobin 88.4 L Sodium Potassium Chloride Carbon Dioxide BUN Creatinine Glucose POC Glucose Lactic Acid Calcium Phosphorus Magnesium AST ALT Ammonia Total Creatine Kinase Troponin T Total Protein Albumin LDL Cholesterol Direct Urine WBC (Auto) Urine Creatinine Salicylates Acetaminophen 01/02/22 01/02/22 01/02/22 20:23 20:23 20:23 WBC Hgb Hct RDW Seg Neuts % (Manual) Lymphocytes % (Manual) Seg Neutrophils # Man Lymphocytes # (Manual) PT INR APTT Heparin Anti-Xa Level ABG pH ABG pO2 ABG HCO3 ABG O2 Saturation ABG Base Excess ABG Hemoglobin Oxyhemoglobin Sodium Potassium Chloride Carbon Dioxide 21 L BUN Creatinine 1.4 H Glucose 260 H POC Glucose Lactic Acid 10.00 H* Calcium Phosphorus Magnesium AST 115 H ALT 74 H Ammonia Total Creatine Kinase 668 H Troponin T 0.200 H* Total Protein 5.7 L Albumin 3.7 L LDL Cholesterol Direct 136 H Urine WBC (Auto) Urine Creatinine Salicylates < 0.3 L Acetaminophen 01/02/22 01/02/22 01/02/22 20:23 20:23 20:52 WBC Hgb Hct RDW Seg Neuts % (Manual) Lymphocytes % (Manual) Seg Neutrophils # Man Lymphocytes # (Manual) PT INR APTT Heparin Anti-Xa Level ABG pH ABG pO2 ABG HCO3 ABG O2 Saturation ABG Base Excess ABG Hemoglobin Oxyhemoglobin Sodium Potassium Chloride Carbon Dioxide BUN Creatinine Glucose POC Glucose Lactic Acid Calcium Phosphorus Magnesium AST ALT Ammonia 79.0 H Total Creatine Kinase Troponin T Total Protein Albumin LDL Cholesterol Direct Urine WBC (Auto) 40.0 H Urine Creatinine Salicylates Acetaminophen 5.0 L 01/02/22 01/03/22 01/03/22 20:52 00:50 04:00 WBC 2.1 L Hgb Hct RDW 16.6 H Seg Neuts % (Manual) 13.0 L Lymphocytes % (Manual) 67.0 H Seg Neutrophils # Man 0.3 L Lymphocytes # (Manual) PT INR APTT Heparin Anti-Xa Level ABG pH 7.306 L ABG pO2 68.8 L ABG HCO3 19.4 L ABG O2 Saturation ABG Base Excess -6.4 L ABG Hemoglobin Oxyhemoglobin 92.8 L Sodium Potassium Chloride Carbon Dioxide BUN Creatinine Glucose POC Glucose Lactic Acid 6.80 H* Calcium Phosphorus Magnesium AST ALT Ammonia Total Creatine Kinase Troponin T Total Protein Albumin LDL Cholesterol Direct Urine WBC (Auto) Urine Creatinine Salicylates Acetaminophen 01/03/22 01/03/22 01/03/22 04:00 05:30 05:45 WBC Hgb Hct RDW Seg Neuts % (Manual) Lymphocytes % (Manual) Seg Neutrophils # Man Lymphocytes # (Manual) PT INR APTT Heparin Anti-Xa Level ABG pH 7.096 L* ABG pO2 44.6 L ABG HCO3 16.8 L ABG O2 Saturation 68.0 L ABG Base Excess -13.3 L ABG Hemoglobin Oxyhemoglobin 66.6 L Sodium 146 H Potassium 3.0 L Chloride Carbon Dioxide 17 L BUN Creatinine 2.5 H D Glucose 149 H POC Glucose Lactic Acid 11.10 H* Calcium Phosphorus Magnesium AST ALT Ammonia Total Creatine Kinase Troponin T Total Protein Albumin LDL Cholesterol Direct Urine WBC (Auto) Urine Creatinine Salicylates Acetaminophen 01/03/22 01/03/22 01/03/22 08:03 08:03 09:10 WBC Hgb Hct RDW Seg Neuts % (Manual) Lymphocytes % (Manual) Seg Neutrophils # Man Lymphocytes # (Manual) PT 22.7 H INR 1.76 H APTT 39.6 H Heparin Anti-Xa Level ABG pH 7.154 L* ABG pO2 47.8 L ABG HCO3 17.5 L ABG O2 Saturation 79.4 L ABG Base Excess -11.7 L ABG Hemoglobin Oxyhemoglobin 78.0 L Sodium Potassium Chloride Carbon Dioxide BUN Creatinine Glucose POC Glucose Lactic Acid 7.90 H* Calcium Phosphorus Magnesium AST ALT Ammonia Total Creatine Kinase Troponin T Total Protein Albumin LDL Cholesterol Direct Urine WBC (Auto) Urine Creatinine Salicylates Acetaminophen 01/03/22 01/03/22 01/03/22 11:25 16:51 18:20 WBC Hgb Hct RDW Seg Neuts % (Manual) Lymphocytes % (Manual) Seg Neutrophils # Man Lymphocytes # (Manual) PT INR APTT 99.5 H* Heparin Anti-Xa Level ABG pH 7.198 L* 7.246 L ABG pO2 173.7 H 118.9 H ABG HCO3 18.6 L ABG O2 Saturation ABG Base Excess -9.4 L -6.4 L ABG Hemoglobin 12.7 L 13.1 L Oxyhemoglobin Sodium Potassium Chloride Carbon Dioxide BUN Creatinine Glucose POC Glucose Lactic Acid Calcium Phosphorus Magnesium AST ALT Ammonia Total Creatine Kinase Troponin T Total Protein Albumin LDL Cholesterol Direct Urine WBC (Auto) Urine Creatinine Salicylates Acetaminophen 01/03/22 01/03/22 01/03/22 19:00 20:50 Unknown WBC Hgb Hct RDW Seg Neuts % (Manual) Lymphocytes % (Manual) Seg Neutrophils # Man Lymphocytes # (Manual) PT INR APTT Heparin Anti-Xa Level 0.25 L ABG pH ABG pO2 ABG HCO3 ABG O2 Saturation ABG Base Excess ABG Hemoglobin Oxyhemoglobin Sodium 146 H Potassium Chloride 108.4 H Carbon Dioxide BUN 28 H Creatinine 3.1 H Glucose POC Glucose Lactic Acid Calcium 7.6 L Phosphorus Magnesium AST 738 H ALT 488 H Ammonia Total Creatine Kinase Troponin T Total Protein 4.5 L D Albumin 2.8 L LDL Cholesterol Direct Urine WBC (Auto) Urine Creatinine 70.0 H Salicylates Acetaminophen 01/04/22 01/04/22 01/04/22 00:39 04:45 04:45 WBC Hgb 11.6 L Hct 34.9 L D RDW 15.6 H Seg Neuts % (Manual) Lymphocytes % (Manual) Seg Neutrophils # Man Lymphocytes # (Manual) PT INR APTT Heparin Anti-Xa Level ABG pH ABG pO2 ABG HCO3 ABG O2 Saturation ABG Base Excess ABG Hemoglobin Oxyhemoglobin Sodium Potassium Chloride Carbon Dioxide BUN Creatinine Glucose POC Glucose 149 H Lactic Acid Calcium Phosphorus 1.80 L Magnesium 1.10 L AST ALT Ammonia Total Creatine Kinase Troponin T Total Protein Albumin LDL Cholesterol Direct Urine WBC (Auto) Urine Creatinine Salicylates Acetaminophen 01/04/22 01/04/22 01/04/22 05:44 07:55 10:21 WBC Hgb Hct RDW Seg Neuts % (Manual) Lymphocytes % (Manual) Seg Neutrophils # Man Lymphocytes # (Manual) PT INR APTT Heparin Anti-Xa Level 0.24 L ABG pH 7.342 L ABG pO2 91.2 H ABG HCO3 ABG O2 Saturation ABG Base Excess -2.2 L ABG Hemoglobin 11.8 L Oxyhemoglobin Sodium Potassium Chloride Carbon Dioxide BUN Creatinine Glucose POC Glucose 196 H Lactic Acid Calcium Phosphorus Magnesium AST ALT Ammonia Total Creatine Kinase Troponin T Total Protein Albumin LDL Cholesterol Direct Urine WBC (Auto) Urine Creatinine Salicylates Acetaminophen 01/04/22 Unknown WBC Hgb Hct RDW Seg Neuts % (Manual) Lymphocytes % (Manual) Seg Neutrophils # Man Lymphocytes # (Manual) PT INR APTT Heparin Anti-Xa Level ABG pH ABG pO2 ABG HCO3 ABG O2 Saturation ABG Base Excess ABG Hemoglobin Oxyhemoglobin Sodium Potassium 3.2 L Chloride Carbon Dioxide BUN 35 H Creatinine 4.0 H Glucose 206 H POC Glucose Lactic Acid Calcium 6.9 L Phosphorus Magnesium AST ALT Ammonia Total Creatine Kinase Troponin T Total Protein Albumin LDL Cholesterol Direct Urine WBC (Auto) Urine Creatinine Salicylates Acetaminophen Chest x-ray: image reviewed Allied health notes reviewed: RT
[2022-01-04] MEDS ORDERED: LORazepam 2 MG/ML VIAL IV PRN (18:08)
[2022-01-04] MEDS ORDERED: GLYCOPYRROLATE 0.4 MG/2 ML INJ IV PRN (18:08)
[2022-01-04 18:58] VITALS: BP 0/0
[2022-01-05] MEDS ORDERED: CEFEPIME/NS 2 GM/100 ML 2 GM/100 ML BAG IV SCH (04:00)
--- NOTE | 2022-01-05 07:52 | Death Summary ---
Summary - Providers Consults: 01/02/22 22:53 Consult to Dietitian/Nutrition [CONS] Routine Physician Instructions: Reason For Exam: Reason for Consult: Diet education Consult to Physician [CONS] Routine Comment: Consulting Provider: RAQUEL DEJESUS Physician Instructions: Reason For Exam: Cardiopulmonary Arrest 01/02/22 22:54 Consult to Physician [CONS] Stat Comment: Consulting Provider: RAQUEL DEJESUS Physician Instructions: Reason For Exam: post cardiac arrest 01/02/22 23:11 Consult to Physician [CONS] Stat Comment: Consulting Provider: MELO PICKENS Physician Instructions: Reason For Exam: post cardiac arrest 01/03/22 07:48 Consult to Physician [CONS] Routine Comment: left mess. /delgado Consulting Provider: LINA GRANT Physician Instructions: Reason For Exam: anoxic injury 01/03/22 14:22 Consult to Physician [CONS] Routine Comment: dr. chi o/c delgado Consulting Provider: DESIREE ASENCIO Physician Instructions: Reason For Exam: gram positive cocci 01/03/22 15:22 Consult to Dietitian/Nutrition [CONS] Routine Physician Instructions: Reason For Exam: Reason for Consult: Write/Manage Tube Feeding 01/03/22 17:59 Consult to Physician [CONS] Routine Comment: brant spoke to enoc pritchett/ delgado Consulting Provider: REID REYES Physician Instructions: Reason For Exam: rolanda, s/p cardiac arrest Attending: TANI SERRANO MD - summary Date of admission: 01/02/22 22:53 Date of : 01/04/22 Reason for admission: s/p cardiac arrest x2, acute hypoxemic resp failure, rolanda, transaminitis Significant findings: This is a 66-year-old male with a medical history over the to the emergency department on 01/02 and cardiopulmonary arrest via EMS. Patient was said to be at home watching TV when he suddenly went to cardiac arrest and EMS was immediately called and patient was transferred to the emergency department. CPR was conducted in route. Upon arrival to the emergency department patient was intubated and received epinephrine and sodium bicarbonate with ROSC. During the course of resuscitation patient was noted to be in V. tach and required IV amiodarone and subsequently started on amiodarone drip. ECG showed possible ischemic changes however upon review by retail and restaurant patient was deemed not to have STEMI. Work-up in the emergency department revealed leukocytosis, lactic acidosis, elevated troponins, UTI noted on UA. CXR showed small right apical pneumothorax and CT head showed concern for bilateral cerebral edema and/or diffuse anoxic brain injury. In the emergency department patient was had a chest tube placed by ED physician and started on IV fluids, pressors and antibiotics. Patient was admitted to the hospitalist service with consults to CCM, cardiology and neurology s/p cardiac arrest, acute hypoxemic hypercarbic respiratory failure, possible anoxic brain injury, transmainitis, Sepsis, Leukopenia, Hypokalemia, metabolic acidosis, acute kidney injury, acute metobolic encephalopathy. On 01/03 patient suffered another cardiac arrest in the ICU with ROSC, CXR showed persistent right pleural pneumothorax and patient received another chest tube. Patient was noted to be having spontaneous respirations, hypothermia, still in vasopressor support with worsening renal function therefore nephrology was consulted. On 01/04 patient was noted to not be having spontaneous, hypothermic, still on vasopressor support and sodium bicarb gtt was discontinued. During the evening, his family came to the difficult decision to deescalate care and patient was terminally extubated. Dr. Tidwell called time of at [phone] on 01/04/2022. Family was at bedside and emotional support provided by staff. Anoxic brain injury Acute metabolic encephalopathy s/p cardiopulmonary arrest x2 with ROSC V. fib arrest NSTEMI Acute hypoxemic hypercarbic respiratory failure Right pneumothorax x 2 Transaminitis likely secondary to cardiac arrest Hypokalemia Metabolic acidosis Acute kidney injury likely secondary to vasomotor nephropathy in setting of cardiac arrest Hypophosphatemia Hypokalemia Sepsis (POA) Coag negative staph bacteremia (3/4 bottles) Leukopenia Hypothermia
--- NOTE | 2022-01-05 17:21 | Electrocardiograph Report ---
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
== END 2022-01-04 21:30 | DRG 871 ==
LOC: ED 20:03 → CC1 22:53
PROVIDERS: ADMIT Internal Medicine Geriatric Medicine; ATTEND Internal Medicine
PROC: 0BH17EZ Insertion of Endotracheal Airway into Trachea, Via Natural or Artificial Opening (ICD-10-PCS; principal; 2022-01-02)
PROC: 02HV33Z Insertion of Infusion Device into Superior Vena Cava, Percutaneous Approach (ICD-10-PCS; 2022-01-02)
PROC: B548ZZA Ultrasonography of Superior Vena Cava, Guidance (ICD-10-PCS; 2022-01-02)
PROC: 4A033R1 Measurement of Arterial Saturation, Peripheral, Percutaneous Approach (ICD-10-PCS; 2022-01-02)
PROC: 0W9930Z Drainage of Right Pleural Cavity with Drainage Device, Percutaneous Approach (ICD-10-PCS; 2022-01-02)
PROC: 5A12012 Performance of Cardiac Output, Single, Manual (ICD-10-PCS; 2022-01-02)
PROC: 04HY32Z Insertion of Monitoring Device into Lower Artery, Percutaneous Approach (ICD-10-PCS; 2022-01-03)
PROC: 0W9930Z Drainage of Right Pleural Cavity with Drainage Device, Percutaneous Approach (ICD-10-PCS; 2022-01-03)
PROC: 0BP1XDZ Removal of Intraluminal Device from Trachea, External Approach (ICD-10-PCS; 2022-01-04)
PROC: 5A1945Z Respiratory Ventilation, 24-96 Consecutive Hours (ICD-10-PCS; 2022-01-04)
DX: A41.9 Sepsis, unspecified organism (principal); G93.41 Metabolic encephalopathy; I21.4 Non-ST elevation (NSTEMI) myocardial infarction; J96.02 Acute respiratory failure with hypercapnia; J96.01 Acute respiratory failure with hypoxia; N17.0 Acute kidney failure with tubular necrosis; R65.21 Severe sepsis with septic shock; I46.9 Cardiac arrest, cause unspecified; N39.0 Urinary tract infection, site not specified; J93.9 Pneumothorax, unspecified; R77.8 Other specified abnormalities of plasma proteins; E87.0 Hyperosmolality and hypernatremia; I49.01 Ventricular fibrillation; E87.2 Acidosis; R74.01 Elevation of levels of liver transaminase levels; E87.6 Hypokalemia; D72.819 Decreased white blood cell count, unspecified; G93.1 Anoxic brain damage, not elsewhere classified; E83.39 Other disorders of phosphorus metabolism; Z79.899 Other long term (current) drug therapy
CPT/HCPCS: 36415; 36600; 70450; 71045; 80048; 80053; 80061; 80307; 80320; 81001; 82140; 82550; 82570; 82803; 82962; 83735; 83880; 84100; 84300; 84484; 85007; 85014; 85018; 85025; 85027; 85049; 85520; 85610; 85730; 86140; 87040; 87070; 87086; 87205; 93005; 93306; 94002; 94003; G0378; J2354; J3490; J7060; C8929; G0480; J0171; J0282; J0461; J0692; J1644; J2001; J2270; J2543; J3370; J3475; J3480; J7030; J7050; J7070; J7120